=== PATIENT | male | born 1945 | race African-American/Black ===

== ENCOUNTER → 2016-03-21 | Outpatient (CLI) | payer OTHER ==
[~2016-03-21] MED LIST: CARV12.544 PO; HYDR-1421; SIMV20TA90; SPIR25TA88 PO; WARF5TAB; WARF5TAB71 PO
[2016-03-21 11:28] LABS: Basophils # (auto) 0 uL; Basophils % (auto) 0.6 % (0.0-2.0); Eosinophils # (auto) 0.2 uL; Eosinophils % (auto) 2.1 % (0.0-7.0); Hematocrit 38.8 % (41.0-53.0); Hemoglobin 12.6 g/dL (13.5-17.5); Lymphocytes # (auto) 1.6 uL; Lymphocytes % (auto) 19.9 % (10.0-50.0); Mean Corpuscular Hemoglobin 30.5 pg (28.0-32.0); Mean Corpuscular Hgb Conc. 32.5 g/dL (32.0-36.0); Mean Corpuscular Volume 94.1 fL (80.0-100.0); Mean Platelet Volume 8.1 fL (7.4-10.4); Monocytes # (auto) 0.5 uL; Monocytes % (auto) 6.3 % (0.0-12.0); Neutrophils # (auto) 5.9 uL; Neutrophils % (auto) 71.1 % (37.0-80.0); Platelet Count (auto) 266 10^3/uL (140-450); Red Cell Distribution Width 14.3 % (11.6-16.0); SUSPECT VIEW TRANSMISSION; White Blood Cell 8.3 10^3/uL (4.4-10.8)
[2016-03-21 11:36] LABS: Urine Bilirubin Negative (Negative); Urine Blood Negative /uL (Negative); Urine Color Yellow (Yellow); Urine Glucose Normal (Normal); Urine Ketone Negative (Negative); Urine Nitrite Negative (Negative); Urine Urobilinogen Normal (Negative); Urine pH 5.5 (5.0-8.0)
[2016-03-21 11:50] LABS: INR 1.95 (0.9-1.15); Prothrombin Time 20.1 sec (9.37-12.3)
[2016-03-21 11:54] LABS: Albumin 3.9 g/dL (3.4-5.0); BUN/Creatinine Ratio 25.8; Bilirubin, Total 0.6 mg/dL (0.2-1.0); Calcium 10.3 mg/dL (8.5-10.1); Potassium 4.8 mmol/L (3.5-5.1); Total Protein 9.1 g/dL (6.4-8.2)
== END | disposition home or self-care (01) ==
LOC: LAB 09:59
PROVIDERS: ATTEND Family Medicine
DX: Z01.818 Encounter for other preprocedural examination (principal)
CPT/HCPCS: 36415; 80053; 81003; 85025; 85610; 85730

== ENCOUNTER → 2016-07-08 | Outpatient (CLI) | payer OTHER | END | disposition home or self-care (01) | LOC: XY 08:17 | PROVIDERS: ATTEND Family Medicine | DX: C79.51 Secondary malignant neoplasm of bone (principal); C80.1 Malignant (primary) neoplasm, unspecified | CPT/HCPCS: 78306; A9503 ==

== ENCOUNTER → 2016-07-11 | Outpatient (CLI) | payer OTHER | END | disposition home or self-care (01) | LOC: LAB 08:47 | PROVIDERS: ATTEND Family Medicine | DX: M89.9 Disorder of bone, unspecified (principal) | CPT/HCPCS: 36415; 82306; 82310 ==

== ENCOUNTER 2017-02-22 16:10 | Emergency (ER) | payer OTHER ==
[~2017-02-22] VITALS: Ht 185.4 cm; Wt 154.2 kg
[2017-02-22 20:58] LABS: Basophils # (auto) 0.1 uL; Basophils % (auto) 0.9 % (0.0-2.0); Eosinophils # (auto) 0.2 uL; Eosinophils % (auto) 2.4 % (0.0-7.0); Hematocrit 34.2 % (41.0-53.0); Hemoglobin 11.1 g/dL (13.5-17.5); Lymphocytes # (auto) 1.9 uL; Lymphocytes % (auto) 23.2 % (10.0-50.0); Mean Corpuscular Hemoglobin 31.3 pg (28.0-32.0); Mean Corpuscular Hgb Conc. 32.5 g/dL (32.0-36.0); Mean Corpuscular Volume 96.4 fL (80.0-100.0); Monocytes # (auto) 0.8 uL; Monocytes % (auto) 9.7 % (0.0-12.0); Neutrophils # (auto) 5.2 uL; Neutrophils % (auto) 63.8 % (37.0-80.0); Platelet Count (auto) 269 10^3/uL (140-450); Red Blood Cells 3.55 10^6/uL (4.5-5.90); White Blood Cell 8.2 10^3/uL (4.4-10.8)
[2017-02-22 21:18] LABS: Albumin 3.6 g/dL (3.4-5.0); BUN/Creatinine Ratio 24.4; Bilirubin, Total 0.4 mg/dL (0.2-1.0); Calcium 9.4 mg/dL (8.5-10.1); Potassium 4.2 mmol/L (3.5-5.1)
[2017-02-23 09:02] VITALS: BP 148/72
== END 2017-02-23 09:28 | disposition home or self-care (01) ==
LOC: EDSEX → ER 16:10
DX: I83.028 Varicose veins of left lower extremity with ulcer other part of lower leg (principal); L97.829 Non-pressure chronic ulcer of other part of left lower leg with unspecified severity; E78.5 Hyperlipidemia, unspecified; I11.0 Hypertensive heart disease with heart failure; I50.9 Heart failure, unspecified; Z86.73 Personal history of transient ischemic attack (TIA), and cerebral infarction without residual deficits; Z95.1 Presence of aortocoronary bypass graft; Z95.0 Presence of cardiac pacemaker; Z79.899 Other long term (current) drug therapy
CPT/HCPCS: 36415; 80053; 85025

== ENCOUNTER → 2017-04-07 | Outpatient (CLI) | payer OTHER | END | disposition home or self-care (01) | LOC: XYW 09:39 | PROVIDERS: ATTEND Internal Medicine | DX: K21.9 Gastro-esophageal reflux disease without esophagitis (principal); I87.2 Venous insufficiency (chronic) (peripheral); I42.0 Dilated cardiomyopathy; N18.2 Chronic kidney disease, stage 2 (mild); E55.9 Vitamin D deficiency, unspecified; I83.009 Varicose veins of unspecified lower extremity with ulcer of unspecified site; L97.909 Non-pressure chronic ulcer of unspecified part of unspecified lower leg with unspecified severity; Z95.810 Presence of automatic (implantable) cardiac defibrillator; Z95.2 Presence of prosthetic heart valve | CPT/HCPCS: 93971 ==

== ENCOUNTER → 2017-07-01 | Outpatient (CLI) | payer OTHER | END | disposition home or self-care (01) | LOC: XYW 10:25 | PROVIDERS: ATTEND Internal Medicine | DX: I35.0 Nonrheumatic aortic (valve) stenosis (principal); I12.9 Hypertensive chronic kidney disease with stage 1 through stage 4 chronic kidney disease, or unspecified chronic kidney disease; N18.2 Chronic kidney disease, stage 2 (mild); E78.5 Hyperlipidemia, unspecified; K21.9 Gastro-esophageal reflux disease without esophagitis; Z95.2 Presence of prosthetic heart valve; Z79.899 Other long term (current) drug therapy | CPT/HCPCS: 93306 ==

== ENCOUNTER → 2017-11-03 | Outpatient (CLI) | payer OTHER ==
[2017-11-03 16:30] LABS: Basophils # (auto) 0 uL; Basophils % (auto) 0.4 % (0.0-2.0); Eosinophils # (auto) 0.3 uL; Eosinophils % (auto) 2.8 % (0.0-7.0); Hematocrit 34.9 % (36.0-46.0); Hemoglobin 11.6 g/dL (12.2-16.2); Lymphocytes # (auto) 1.7 uL; Lymphocytes % (auto) 14.3 % (10.0-50.0); Mean Corpuscular Hemoglobin 31.5 pg (28.0-32.0); Mean Corpuscular Hgb Conc. 33.2 g/dL (32.0-36.0); Mean Corpuscular Volume 94.9 fL (80.0-100.0); Monocytes # (auto) 0.8 uL; Monocytes % (auto) 6.6 % (0.0-12.0); Neutrophils # (auto) 8.9 uL; Neutrophils % (auto) 75.9 % (37.0-80.0); Platelet Count (auto) 233 10^3/uL (140-450); Red Blood Cells 3.68 10^6/uL (4.0-5.20); Red Cell Distribution Width 14.1 % (11.8-14.3); White Blood Cell 11.7 10^3/uL (4.4-10.8)
[2017-11-03 16:50] LABS: Urine Bacteria NONE SEEN /hpf (None Seen); Urine Blood Negative /uL (Negative); Urine Hyaline Cast MOD /lpf (0 - 2); Urine Specific Gravity 1.016 (1.001-1.035); Urine WBC 1 /hpf (0 - 5)
[2017-11-03 16:54] LABS: Albumin 3.8 g/dL (3.4-5.0); BUN/Creatinine Ratio 25.6; Bilirubin, Total 0.4 mg/dL (0.2-1.0); Calcium 9.7 mg/dL (8.5-10.1); Potassium 4.4 mmol/L (3.5-5.1); Total Protein 8.9 g/dL (6.4-8.2)
[2017-11-03 17:04] LABS: Alcohol, Urine < 3.0 mg/dL (0-5); Amphetamine Screen, Urine NEGATIVE (NEGATIVE); Barbiturate Scree,Urine NEGATIVE (NEGATIVE); Benzodiazephine Screen, Urine NEGATIVE (NEGATIVE); Cannabinoid Screen, Urine NEGATIVE (NEGATIVE); Cocaine Screen, Urine NEGATIVE (NEGATIVE); Opiate Scree,Urine POSITIVE (NEGATIVE); Phencyclidine Screen, Urine NEGATIVE (NEGATIVE)
== END | disposition home or self-care (01) ==
LOC: LAB 16:03
PROVIDERS: ATTEND Nurse Practitioner
DX: Z01.89 Encounter for other specified special examinations (principal); E78.5 Hyperlipidemia, unspecified; E55.9 Vitamin D deficiency, unspecified; I11.0 Hypertensive heart disease with heart failure; I50.9 Heart failure, unspecified
CPT/HCPCS: 36415; 80053; 80307; 81001; 82043; 82306; 83036; 84443; 85025

== ENCOUNTER 2018-01-28 14:24 | Emergency (ER) | payer OTHER ==
[~2018-01-28] VITALS: Ht 185.4 cm; Wt 142.9 kg
[2018-01-28] MEDS ORDERED: HYDROcodone-ACET 5/325MG TAB PO ONE (19:45)
[2018-01-28 19:50] VITALS: BP 149/69
== END 2018-01-28 20:41 | disposition home or self-care (01) ==
LOC: EDSEX 14:24 → EDBD 14:24 → ER 14:29 → EDSEX 14:29 → ER 20:41
DX: S56.911A Strain of unspecified muscles, fascia and tendons at forearm level, right arm, initial encounter (principal); I25.810 Atherosclerosis of coronary artery bypass graft(s) without angina pectoris; I11.0 Hypertensive heart disease with heart failure; I50.9 Heart failure, unspecified; E78.5 Hyperlipidemia, unspecified; X58.XXXA Exposure to other specified factors, initial encounter; Y93.89 Activity, other specified; Y92.89 Other specified places as the place of occurrence of the external cause; Y99.8 Other external cause status
CPT/HCPCS: 93005; 93971

== ENCOUNTER 2018-02-10 09:47 | Inpatient (IN) | payer OTHER ==
[~2018-02-10] VITALS: Ht 185.4 cm; Wt 137.6 kg
[2018-02-10 10:43] LABS: Basophils # (auto) 0.1 uL; Basophils % (auto) 0.8 % (0.0-2.0); Eosinophils # (auto) 0.1 uL; Hematocrit 31.1 % (41.0-53.0); Hemoglobin 9.9 g/dL (13.5-17.5); Lymphocytes # (auto) 0.9 uL; Lymphocytes % (auto) 7.1 % (10.0-50.0); Mean Corpuscular Hemoglobin 30.1 pg (28.0-32.0); Mean Corpuscular Hgb Conc. 31.8 g/dL (32.0-36.0); Mean Corpuscular Volume 94.6 fL (80.0-100.0); Monocytes # (auto) 0.9 uL; Monocytes % (auto) 7.2 % (0.0-12.0); Neutrophils # (auto) 10.6 uL; Neutrophils % (auto) 83.9 % (37.0-80.0); Platelet Count (auto) 368 10^3/uL (140-450); Red Blood Cells 3.29 10^6/uL (4.5-5.90); Red Cell Distribution Width 14.1 % (11.8-14.3); White Blood Cell 12.7 10^3/uL (4.4-10.8)
[2018-02-10 10:59] LABS: Albumin 3.5 g/dL (3.4-5.0); Calcium 10.3 mg/dL (8.5-10.1)
[2018-02-10 11:08] LABS: BUN/Creatinine Ratio 22.1; Bilirubin, Total 0.6 mg/dL (0.2-1.0); Total Protein 9.1 g/dL (6.4-8.2)
[2018-02-10 11:10] LABS: Potassium 7.2 mmol/L (3.5-5.1)
[2018-02-10 11:21] LABS: INR 3.58 (0.9-1.15); Partial Thromboplastin Time 54.6 sec (23.78-33.04); Prothrombin Time 35.6 sec (9.27-12.13)
[2018-02-10] MEDS ORDERED: SODIUM BICARBONATE 8.4% INJ 50ML SYRINGE IV ONE (13:00)
[2018-02-10] MEDS ORDERED: ALBUTEROL SULF 2.5 MG/0.5ML(0.5%) NEB SOLN NEB ONE (13:00)
[2018-02-10] MEDS ORDERED: DEXTROSE (50%) 50ML SYRG IV ONE ×2 (13:00→17:30)
[2018-02-10] MEDS ORDERED: InsuLIN REG 1unit/0.01ml Soln (100units/ml) IV ONE ×2 (13:00→17:30)
[2018-02-10] MEDS ORDERED: LACTULOSE 20Gm/30ML SOLN PO PRN (14:00)
[2018-02-10] MEDS ORDERED: MORPHINE SULFATE 4 MG/ML SYR/VIAL IV PRN ×2 (14:00)
[2018-02-10] MEDS ORDERED: LORazepam 0.5 MG TAB PO PRN (14:00)
[2018-02-10] MEDS ORDERED: NITROGLYCERIN 0.4 MG SL TAB SL PRN (14:00)
[2018-02-10] MEDS ORDERED: TEMAZEPAM 15 MG CAP PO PRN (14:00)
[2018-02-10] MEDS ORDERED: ACETAMINOPHEN 500 MG TAB PO PRN (14:00)
[2018-02-10] MEDS ORDERED: SODIUM POLYSTYRENE SULF 15GM/60ML SUSP PO ONE (14:00)
[2018-02-10 14:04] LABS: Urine Bacteria NONE SEEN /hpf (None Seen); Urine Blood 1+ /uL (Negative); Urine Hyaline Cast FEW /lpf (0 - 2); Urine Specific Gravity 1.013 (1.001-1.035); Urine WBC 7 /hpf (0 - 3)
[2018-02-10] MEDS: SODIUM CHLORIDE 0.9% 1,000 ML IV SCH (14:14)
[2018-02-10] MEDS ORDERED: SODIUM CHLORIDE 0.9% 2,000 ML IV ONE (15:45)
[2018-02-10] MEDS ORDERED: phytonadione 5 MG in SODIUM CHL 0.9% 50 ML IV ONE (16:15)
[2018-02-10 16:28] LABS: Albumin 3.2 g/dL (3.4-5.0); Calcium 9.8 mg/dL (8.5-10.1)
[2018-02-10 16:34] LABS: BUN/Creatinine Ratio 23.4; Bilirubin, Total 0.6 mg/dL (0.2-1.0); Total Protein 8.6 g/dL (6.4-8.2)
[2018-02-10] MEDS ORDERED: IOHEXOL 300 MG/ML 100ML BOTTLE IJ ONE (16:34)
[2018-02-10] MEDS ORDERED: LIDOCAINE 2% (LOCAL ANESTH.) PF 5ml SDV ONE (16:35)
[2018-02-10] MEDS ORDERED: MIDAZOLAM HCL 0 ML IV ONE (17:01)
[2018-02-10] MEDS ORDERED: fentaNYL CITRATE 100 MCG/2 ML VL ONE (17:01)
[2018-02-10] MEDS ORDERED: HEPARIN SODIUM (PORCINE) 5000 UNITS/ML 1ML VIAL ONE (17:25)
[2018-02-10] MEDS ORDERED: SODIUM BICARBONATE 8.4 % INJ 50ML VIAL IV ONE (17:30)
[2018-02-10 17:45] VITALS: BP 102/51
--- NOTE | 2018-02-10 17:45 | NUR ---
Admit to [facility] admitted to [facility] via gurney on cardiac specialist, and portable 02. Patient transferred to bed, connected to unit monitoring and oxygen, and weighed by bed scale. Right groin Danis catheter access is clean and dry without signs of bleeding. Patient oriented to Sisi sanz RN, unit, room, bed, and unit policies regarding patient care and visiting hours. All questions and concerns addressed, patient verbalized understanding.
--- NOTE | 2018-02-10 17:54 | NUR ---
CARD LACER JACQUARD AT BEDSIDE STARTING DIALYSIS FROM RIGHT GROIN ZEHRA CATH ACCESS.
--- NOTE | 2018-02-10 18:10 | NUR ---
wound photos taken
[2018-02-10] MEDS ORDERED: cefTRIAXone 1GM/50ML D5W 50 ML IV ONE (19:15)
--- NOTE | 2018-02-10 19:20 | NUR ---
OPENING SHIFT NOTE PATIENT CURRENTLY RECEIVING DIALYSIS, DIALYSIS NURSE AT BEDSIDE. PATIENT OPENS EYES WHEN CALLED BY NAME BUT CLOSES THEM IMMEDIATELY AFTER. PT IS ALERT AND ORIENTED X2 WITH GARBLED SPEECH AND ABLE TO FOLLOW SIMPLE COMMANDS, IS ABLE TO STATE NAME, , AND PLACE. SEE INTERVENTIONS FOR COMPLETE PHYSICAL ASSESSMENT. FALL PRECAUTIONS INITIATED. CALL LIGHT WITHIN EASY REACH. VS WNL WITH NO S/S OF DISTRESS/SOB: CONTINUE TO MONITOR.
--- NOTE | 2018-02-10 19:34 | NUR ---
BLOOD BANK CALLED, STATES [facility] IS READY. INFORMED HER TO START THAWING THE FIRST BAG NOW.
--- NOTE | 2018-02-10 19:35 | NUR ---
ENDORSED CARE TO ORDERING BOX OPERATOR RN, NO SOB OR DISTRESS NOTED. DIALYSIS CONTINUING.
[2018-02-10 20:00] VITALS: BP 102/57
--- NOTE | 2018-02-10 20:01 | NUR ---
DIALYSIS ENDED BLOOD PRESSURE 102/57 PER DIALYSIS NURSE NO OUTPUT
[2018-02-10 20:27] LABS: Albumin 3.2 g/dL (3.4-5.0); Calcium 8.7 mg/dL (8.5-10.1); Potassium 4.4 mmol/L (3.5-5.1)
[2018-02-10 20:31] LABS: BUN/Creatinine Ratio 25.9; Bilirubin, Total 0.8 mg/dL (0.2-1.0); Total Protein 8.6 g/dL (6.4-8.2)
[2018-02-10] MEDS: ATORVASTATIN 20 MG TAB PO SCH (21:29)
[2018-02-11] VITALS: BP 115/65
[2018-02-11] MEDS ORDERED: SPIR25TA8 PO (00:48)
[2018-02-11] MEDS ORDERED: LISI-275 PO (00:48)
[2018-02-11] MEDS ORDERED: DOXY100C2 PO (00:49)
[2018-02-11] MEDS: SODIUM CHLORIDE 0.9% 1,000 ML IV SCH ×3 (02:09→17:15)
--- NOTE | 2018-02-11 02:18 | NUR ---
PAIN: PATIENT NOTED TO BE MOANING PATIENT IS NOW ALERT AND ORIENTED X3, AWAKE AND ABLE TO VERBALIZE HIS LEGS WERE HURTING HIM RATED PAIN 7/10 WHEN ASKED IF PATIENT HAD ANY ALLERGIES HE STATED NO AND STATED HE HAS RECEIVED MORPHINE IN THE PAST WILL MEDICATE PER MD ORDERS PATIENT REQUESTING WATER ICE WATER GIVEN AND PATIENT SWALLOWED WITHOUT DIFFICULTY UPDATED PATIENT ON HIS POST OP PROCEDURE AND EXPLAINED DIALYSIS PATIENT VERBALIZED UNDERSTANDING INSTRUCTED TO CALL PRN WILL CONTINUE TO MONITOR
[2018-02-11 04:00] VITALS: BP 122/59
--- NOTE | 2018-02-11 05:12 | NUR ---
AM CARE/LINEN CHANGE PATIENT GIVEN COMPLETE BED BATH USING WARM SOAPY WATER. SKIN INTEGRITY REASSESSED AT THIS TIME. RIGHT LATERAL LOWER EXTREMITY NOTED TO HAVE A BLISTER WHICH HAS POPPED HOWEVER SKIN REMAINS INTACT. PATIENT ABLE TO ASSIST MINIMALLY WITH TURNING. NEW GOWN PLACED AND PARTIAL BED LINEN CHANGE DONE.PATIENT REPOSITIONED FOR COMFORT. FALL PRECAUTIONS CONTINUED. PATIENT IS FULLY AWAKE AND ALERT AND ORIENTED X4, SPEECH CONTINUES TO BE SLURRED/GARBLED. NO DISTRESS/SOB.CONTINUE CARE. Addendum: 02/11/18 at 0533 by Yvonne Ritchie RN LEFT LATERAL CHEST NOTED TO HAVE MULTIPLE ECCHYMOTIC AREAS PATIENT DENIES RECENT FALLS STATES IT IS FROM COUMADIN INTAKE
[2018-02-11 05:48] LABS: Basophils # (auto) 0 uL; Basophils % (auto) 0.4 % (0.0-2.0); Eosinophils # (auto) 0.2 uL; Eosinophils % (auto) 1.9 % (0.0-7.0); Hematocrit 27.6 % (41.0-53.0); Hemoglobin 9.1 g/dL (13.5-17.5); Lymphocytes # (auto) 0.8 uL; Lymphocytes % (auto) 7.4 % (10.0-50.0); Mean Corpuscular Hgb Conc. 33.1 g/dL (32.0-36.0); Mean Corpuscular Volume 93.5 fL (80.0-100.0); Monocytes # (auto) 1.1 uL; Monocytes % (auto) 10.3 % (0.0-12.0); Neutrophils # (auto) 8.7 uL; Nucleated Red Blood Cells % 0.1 %; Platelet Count (auto) 337 10^3/uL (140-450); Red Blood Cells 2.95 10^6/uL (4.5-5.90); Red Cell Distribution Width 13.7 % (11.8-14.3); White Blood Cell 10.8 10^3/uL (4.4-10.8)
[2018-02-11 06:02] LABS: Albumin 2.9 g/dL (3.4-5.0)
[2018-02-11 06:07] LABS: INR 1.4 (0.9-1.15); Prothrombin Time 14.7 sec (9.27-12.13)
[2018-02-11 06:09] LABS: BUN/Creatinine Ratio 27.3; Bilirubin, Total 0.9 mg/dL (0.2-1.0); Total Protein 7.7 g/dL (6.4-8.2)
--- NOTE | 2018-02-11 06:20 | NUR ---
SPOKE WITH PATIENT'S OVER THE PHONE AND UPDATED HER ON PATIENT STATUS AND POC ALL QUESTIONS AND CONCERNS ADDRESSED ENCOURAGED KATELYNN TO CALL FOR FURTHER QUESTIONS
--- NOTE | 2018-02-11 07:30 | NUR ---
CARE ENDORSED TO DAY SHIFT RN PAIGE PATIENT RESTING IN BED NO S/S OF DISTRESS/SOB FALL PRECAUTIONS CONTINUED
--- NOTE | 2018-02-11 07:30 | NUR ---
ASSUMED CARE OF PATIENT AFTER RECEIVING REPORT FROM REGISTERED MIDWIFE RN, PATIENT IS ALERT AND ORIENTED X4 AND ON 2 L NC WITHOUT SOB OR DISTRESS NOTED AT THIS TIME. IV IN LEFT AC INFUSING NS AT 100 MLS/HR WITHOUT IRRITATION. RICHARDSON PATENT AND DRAINING TO GRAVITY CLEAR YELLOW URINE. BED IN LOWEST POSITION WITH X2 RAILS RAISED. CALL LIGHT WITHIN PATIENT REACH.
[2018-02-11 07:51] VITALS: BP 101/32
[2018-02-11] MEDS ORDERED: SODIUM CHL 0.9% 1000 ML BAG XX ONE (08:15)
--- NOTE | 2018-02-11 09:50 | NUR ---
DR. OSBORNE CAME TO BEDSIDE STATES TO PLACE A CARDIO CONSULT DUE TO THE ARTIFICIAL VALVE. STATES DIALYSIS WILL BE PERFORMED AGAIN TODAY.
[2018-02-11] MEDS ORDERED: ASPirin 81 mg TAB PO SCH (10:00)
[2018-02-11] MEDS ORDERED: ENOXAPARIN SOD 30 MG/0.3 ML SYRINGE SC SCH (10:00)
[2018-02-11] MEDS: PANTOPRAZOLE 40 MG TAB PO SCH (10:00)
--- NOTE | 2018-02-11 10:48 | NUR ---
[facility] STATES SHE WILL BE HERE TO DIALYZE THE PATIENT AT 1130.
--- NOTE | 2018-02-11 11:44 | NUR ---
WOUND CARE NOTE: IN TO SEE PATIENT AT THIS TIME PER WOUND CARE CONSULT REQUEST. PATIENT NOTED UPON ADMIT, TO HAVE WOUNDS. ALL WOUNDS PHOTOGRAPHED FOR REFERENCE, BY BEDSIDE NURSE AT THAT TIME. PATIENT ADMITTED TO [facility] WITH DIAGNOSIS OF UREMIC ENCEPHALOPATHY. CURRENT BERE SCORE IS 13. PATIENT STATES THAT HE CAN AMBULATE WITH HELP OF WALKER OR CRUTCHES. HE RECEIVES WOUND CARE FOR HIS PVD. PATIENT IS NOTED TO HAVE GENERALIZED EDEMA THAT IS NON PITTING. HE IS CURRENTLY RECEIVING DIALYSIS. PATIENT HAS 4 SERUM FILLED BLISTERS, 3 OF WHICH ARE OPEN AND DRAINING LIGHT AMOUNTS OF SEROUS DRAINAGE. NEW WOUND PHOTOS TAKEN FOR REFERENCE AT THIS TIME. ALL OPEN BLISTERS ARE PARTIAL THICKNESS. CLEANSED WITH WOUND CLEANSER, PATTED DRY WITH STERILE GAUZE. APPLIED THERAHONEY GAUZE TO OPEN WOUND BED AREAS. COVERED ALL BLISTERS WITH OPTIFOAM GENTLE DRESSING. PATIENT TOLERATED DRESSING CHANGE WELL, WITH NO PAIN NOTED BY PATIENT. ELEVATED BOTH LEGS UP ONTO PILLOWS FOR EDEMA CONTROL. RECOMMEND: DIETARY CONSULT, DAILY/PRN DRESSING CHANGE TO BLE BLISTERS, ELEVATION OF BLE UP ONTO PILLOWS, FREQUENT TURN SCHEDULE Q 2 HOURS, PRN CONDITION PERMITS, WITH PRESSURE REDISTRIBUTION USING PILLOWS/WEDGES, BID/PRN APPLICATION WITH MOISTURE BARRIER CREAM AND OPTIFOAM GENTLE SACRAL DRESSING PREVENTATIVE, CONTINUED MONITORING BY WOUND CARE TEAM. Addendum: 02/11/18 at 1809 by Carolin Elaine RN Amended: Links added.
[2018-02-11 11:55] VITALS: BP 110/67
--- NOTE | 2018-02-11 12:13 | NUR ---
RESEARCH AND DEVELOPMENT SPECIALIST AT BEDSIDE STARTING TO DIALYZE
--- NOTE | 2018-02-11 14:07 | NUR ---
DIALYSIS COMPLETED. POSITIVE INTAKE OF 300 CC OF FLUIDS.
[2018-02-11 14:45] LABS: Basophils # (auto) 0.1 uL; Basophils % (auto) 0.6 % (0.0-2.0); Eosinophils # (auto) 0.1 uL; Eosinophils % (auto) 1.1 % (0.0-7.0); Hematocrit 29.1 % (41.0-53.0); Hemoglobin 9.5 g/dL (13.5-17.5); Lymphocytes # (auto) 0.7 uL; Lymphocytes % (auto) 7.4 % (10.0-50.0); Mean Corpuscular Hemoglobin 30.6 pg (28.0-32.0); Mean Corpuscular Hgb Conc. 32.7 g/dL (32.0-36.0); Mean Corpuscular Volume 93.5 fL (80.0-100.0); Monocytes # (auto) 1.1 uL; Monocytes % (auto) 11.4 % (0.0-12.0); Neutrophils # (auto) 7.9 uL; Neutrophils % (auto) 79.5 % (37.0-80.0); Nucleated Red Blood Cells % 0.1 %; Platelet Count (auto) 314 10^3/uL (140-450); Red Blood Cells 3.11 10^6/uL (4.5-5.90); Red Cell Distribution Width 13.8 % (11.8-14.3); White Blood Cell 9.9 10^3/uL (4.4-10.8)
[2018-02-11 15:04] LABS: INR 1.24 (0.9-1.15); Prothrombin Time 13.1 sec (9.27-12.13)
[2018-02-11 15:55] VITALS: BP 90/46
[2018-02-11] MEDS: PROMETHAZINE HCL 25 MG/ML 1ML IV PRN (16:37)
--- NOTE | 2018-02-11 16:37 | NUR ---
Midline Placement to Right Upper Arm, 18g/8 cm in length. Blood return obtained from single port, flushes easily. Tolerated well. Primary RN notified. Lot# [id number].
[2018-02-11] MEDS: cefTRIAXone 1GM/50ML D5W 50 ML IV SCH (16:41)
[2018-02-11] MEDS ORDERED: WARFARIN SODIUM 5 MG TAB PO ONE (17:00)
[2018-02-11] MEDS: HEPARIN DRIP/D5W 100UNITS/ML 250 ML IV SCH (17:03)
--- NOTE | 2018-02-11 18:19 | NUR ---
SPOKE TO DR. GEORGE INFORMED HIM PATIENT HAS BEEN VOMITING EVEN AFTER ADMINISTERING THE PRN PHENERGAN. MD STATES TO GIVE ONE DOES OF ZOFRAN 4 MG IV NOW THEN HAVE ORDERED FOR Q4HPRN.
[2018-02-11] MEDS ORDERED: ONDANSETRON HCL 4 MG/2 ML VIAL IM ONE (18:30)
[2018-02-11] MEDS ORDERED: ONDANSETRON HCL 4 MG/2 ML VIAL ONE (18:38)
--- NOTE | 2018-02-11 19:30 | NUR ---
SHIFT OPENING NOTE RECEIVED PATIENT WITH EYES CLOSED. OPENED EYES WITH VOICE. APPROPRIATELY RESPONDED TO QUESTIONS. ALERT AND ORIENTED X4. NO SOB, DISTRESS OR PAIN NOTED. ON 2L N/C. VS STABLE. EVER CATH NOTED ON RIGHT GROIN. DRESSING IS C/D/I. ON HEPARIN INFUSING AT 20 ML/H. ON NS AT 100 ML/H. PHYSICAL ASSESSMENT COMPLETED, SEE INTERVENTIONS. INSTRUCTED ON POC AND TO CALL FOR ASSIST NEEDED. BED IS IN THE LOWEST POSITION WITH SIDE RAILS UP X2, CALL LIGHT IS WITHIN REACH.
--- NOTE | 2018-02-11 19:52 | NUR ---
ENDORSED CARE TO LOAN OPERATIONS MANAGER RN, NO SOB OR DISTRESS NOTED. ENDORSED GIVING COUMADIN AFTER PATIENT'S VOMITING HAS STOPPED.
[2018-02-11 20:00] VITALS: BP 117/67
[2018-02-11] MEDS ORDERED: EPOETIN ALFA 10,000 UNIT/1 ML VIAL SC ONE (21:00)
[2018-02-11] MEDS: ATORVASTATIN 20 MG TAB PO SCH (21:30)
--- NOTE | 2018-02-11 21:50 | NUR ---
BM PATIENT NOTED TO HAVE A BM. CLEANSED WITH SOAP AND WATER. PARTIAL LINEN CHANGE DONE. GOWN CHANGED. REPOSITIONED FOR COMFORT. TOLERATED IT WELL. CALL LIGHT WITHIN REACH. WILL CONTINUE TO MONITOR.
[2018-02-11 23:03] LABS: INR 1.17 (0.9-1.15); Prothrombin Time 12.4 sec (9.27-12.13)
[2018-02-11 23:04] LABS: Partial Thromboplastin Time 74.1 sec (23.78-33.04)
--- NOTE | 2018-02-11 23:05 | NUR ---
HEPARIN DRIP:NO CHANGE PTT 74.1 RATE WILL REMAIN AT 20 ML/H.
--- NOTE | 2018-02-11 23:20 | NUR ---
SPOKE WITH KATELYNN ON THE PHONE UPDATED HER ON PATIENT STATUS AND POC.
[2018-02-12] VITALS: BP 125/58
[2018-02-12] MEDS: PROMETHAZINE HCL 25 MG/ML 1ML IV PRN (00:58)
--- NOTE | 2018-02-12 01:00 | NUR ---
NAUSEA/VOMITING PATIENT HAD AN EPISODE OF VOMITING. GREEN OUTPUT SEEN . BED PLACED IN HIGH FOWLERS POSITION. MEDICATED WITH PHENERGAN PER MD ORDER. WILL CONTINUE TO MONITOR.
[2018-02-12] MEDS: HEPARIN DRIP/D5W 100UNITS/ML 250 ML IV SCH ×3 (02:43→22:08)
[2018-02-12 04:00] VITALS: BP 131/66
[2018-02-12] MEDS: SODIUM CHLORIDE 0.9% 1,000 ML IV SCH ×3 (04:44→23:15)
--- NOTE | 2018-02-12 05:00 | NUR ---
PARTIAL BED BATH DONE SHARON CARE PERFORMED. GOWN CHANGED, PARTIAL LINEN CHANGE. PATIENT TOLERATED IT WELL.
[2018-02-12 05:46] LABS: Basophils # (auto) 0 uL; Basophils % (auto) 0.2 % (0.0-2.0); Eosinophils # (auto) 0 uL; Hematocrit 30.8 % (41.0-53.0); Hemoglobin 9.8 g/dL (13.5-17.5); Lymphocytes # (auto) 0.8 uL; Lymphocytes % (auto) 5.9 % (10.0-50.0); Mean Corpuscular Hemoglobin 30.2 pg (28.0-32.0); Mean Corpuscular Hgb Conc. 31.7 g/dL (32.0-36.0); Mean Corpuscular Volume 95.1 fL (80.0-100.0); Monocytes # (auto) 1.5 uL; Monocytes % (auto) 10.2 % (0.0-12.0); Neutrophils % (auto) 83.7 % (37.0-80.0); Platelet Count (auto) 336 10^3/uL (140-450); Red Blood Cells 3.24 10^6/uL (4.5-5.90); Red Cell Distribution Width 13.6 % (11.8-14.3); White Blood Cell 14.3 10^3/uL (4.4-10.8)
[2018-02-12 06:00] LABS: INR 1.19 (0.9-1.15); Prothrombin Time 12.6 sec (9.27-12.13)
[2018-02-12 06:39] LABS: Anion Gap 6 (5-15); Blood Urea Nitrogen 54 mg/dL (7-18); Carbon Dioxide 29 mmol/L (21-32); Chloride 108 mmol/L (98-107); Glucose 122 mg/dL (74-106); Potassium 3.8 mmol/L (3.5-5.1); Sodium 143 mmol/L (136-145)
[2018-02-12 06:40] LABS: BUN/Creatinine Ratio 28.4; Calcium 9.3 mg/dL (8.5-10.1); GFR African American 45 mL/min; GFR Non-African American 37 mL/min
[2018-02-12 06:59] LABS: INR 1.19 (0.9-1.15); Prothrombin Time 12.6 sec (9.27-12.13)
--- NOTE | 2018-02-12 07:00 | NUR ---
END OF SHIFT PATIENT IS QUIETLY LAYING IN BED SLEEPING. NO SOB, DISTRESS OR PAIN NOTED. WILL GIVE REPORT AND ENDORSE CARE TO THE DAY SHIFT NURSE.
[2018-02-12] MEDS: ONDANSETRON HCL 4 MG/2 ML VIAL IV PRN ×2 (07:12→17:12)
--- NOTE | 2018-02-12 07:30 | NUR ---
RECEIVED PATIENT SITTING UP IN THE BED, A/O TIMES 2, O2 AT 2L BY N/C, RICHARDSON TO GRAVITY, HEPARIN DRIP AT TURNED OFF FOR I HOUR TO DUE TO ELEVATED PTT, NS AT 100ML/HR INFUSING INTACT THE LAC BY THE IV PUMP, DRESSING TO ERLINDA LEGS ALL INTACT, PATIENT IS WEAK WITH EXTREMITIES
--- NOTE | 2018-02-12 07:35 | NUR ---
HEPARIN DRIP CHANGE CRITICAL APTT OF 113 PER PROTOCOL, HEPARIN DRIP STOPPED FOR 1 HOUR, THEN RATE TO BE DECREASED TO 17 ML/H.
[2018-02-12 08:00] VITALS: BP 136/62
--- NOTE | 2018-02-12 08:30 | NUR ---
PATIENT REFUSED TO EAT ANY BREAKFAST BECAUSE HE WAS VOMITING EARLIER, BUT STATES HE DOESN'T HAVE ANY NAUSEA AT THIS TIME
[2018-02-12] MEDS: cefTRIAXone 1GM/50ML D5W 50 ML IV SCH (09:20)
--- NOTE | 2018-02-12 09:20 | NUR ---
EXPLAIN MEDICATIONS TO THE PATIENT REGARDING THE DOSAGE, USAGE, AND THE SIDE EFFECTS, VERBALIZED THAT HE UNDERSTOOD AND MEDS GIVEN ORDERED
[2018-02-12] MEDS: PANTOPRAZOLE 40 MG TAB PO SCH (09:21)
--- NOTE | 2018-02-12 10:30 | NUR ---
SITTING UP IN BED WITH EYES CLOSED
--- NOTE | 2018-02-12 11:40 | NUR ---
DIALYSIS NURSE HERE TO STARTED DIALYSIS
[2018-02-12] MEDS: HYDROcodone-ACET 5/325MG TAB PO PRN (11:54)
--- NOTE | 2018-02-12 11:56 | NUR ---
MEDICATED FOR PAIN TO THE HIPS 09/01 WITH NORCO 5/325MG
[2018-02-12 11:59] VITALS: BP 123/73
--- NOTE | 2018-02-12 12:22 | NUR ---
Nutrition Consult/assessment Notes please see attached link for complete assessment Est. Needs ABW 109k-2507kcal (20-23 kcal/kgBW), 87-109 gms pro (0.8-1.0 gms/kgBW r/t elev RFT). Will continue to monitor pertinent labs and reassess nutrient need pr Addendum: 02/12/18 at [address] Amended: Links added.
--- NOTE | 2018-02-12 12:39 | NUR ---
DIALYSIS BEING GIVEN PATIENT SITTING UP IN THE BED WITH EYES CLOSED , FAMILY AT THE BEDSIDE
--- NOTE | 2018-02-12 13:30 | NUR ---
HEPARIN DECREASED TO 1500 UNITS OR 15ML /HR,, PTT 86.5
[2018-02-12 13:50] LABS: INR 1.14 (0.9-1.15); Prothrombin Time 12.1 sec (9.27-12.13)
[2018-02-12 13:59] LABS: Partial Thromboplastin Time 86.5 sec (23.78-33.04)
--- NOTE | 2018-02-12 14:40 | NUR ---
DIALYSIS FINISHED, PATIENT TOLERATED TODAY, B/P 122/75
[2018-02-12] MEDS: EPOETIN ALFA 10,000 UNIT/1 ML VIAL SC ONE ×2 (15:23→15:25)
--- NOTE | 2018-02-12 15:30 | NUR ---
SITTING UP IN THE BED FRIEND IN VISITING
[2018-02-12 16:00] VITALS: BP 123/71
--- NOTE | 2018-02-12 16:30 | NUR ---
NO CHANGE B/P STILL IN THE 120 RANGE SYSTOLIC,
[2018-02-12] MEDS ORDERED: WARFARIN SODIUM 2.5 MG TAB PO ONE (17:00)
--- NOTE | 2018-02-12 17:15 | NUR ---
MEDICATED FOR NAUSEA WITH ZOFRAN, VOMITED ABOUT 150ML OF GREENISH FLUID, BUT THE PATIENT HAS REFUSED TO EAT ALL DAY, EXPRESS TO HIM THAT HE NEEDS FOOD ON HIS STOMACH BECAUSE OF THE MEDICATIONS THAT WE ARE GIVING HIM
--- NOTE | 2018-02-12 17:31 | NUR ---
STATES NAUSEA HAS RESOLVED, STATES HE WILL EAT DINNER, DAUGHTER IN THE ROOM WITH THE PATIENT, ENCOURAGING HIM TO EAT
--- NOTE | 2018-02-12 18:36 | NUR ---
SITTING UP IN BED WITH HIS EYES CLOSED, O2 AT 2L BY N/C, HEPARIN INFUSING INTO THE GET MIDLINE AT 15ML/HR AND NS INFUSING INTO THE LAC AT 50ML/HR BOTH BY THE IV PUMP, RICHARDSON TO GRAVITY, PILLOWS ELEVATED ON PILLOWS, NO COMPLAINTS OF NAUSEA, WILL CONTINUE TO MONITOR AND GIVE REPORT TO THE NEXT SHIFT
[2018-02-12 19:58] VITALS: BP 135/74
[2018-02-12 20:37] LABS: INR 1.16 (0.9-1.15); Partial Thromboplastin Time 64.8 sec (23.78-33.04); Prothrombin Time 12.3 sec (9.27-12.13)
--- NOTE | 2018-02-12 21:03 | NUR ---
PTT 64.80, no changes to Heparin drip. Pt stable.
[2018-02-12] MEDS: ATORVASTATIN 20 MG TAB PO SCH (22:36)
[2018-02-13 02:37] LABS: INR 1.16 (0.9-1.15); Prothrombin Time 12.3 sec (9.27-12.13)
[2018-02-13 02:51] LABS: Partial Thromboplastin Time 73.2 sec (23.78-33.04)
--- NOTE | 2018-02-13 02:56 | NUR ---
PTT 73.2, no changes to Heparin drip at this time. Pt stable. Will continue to monitor.
[2018-02-13 03:19] LABS: Albumin 2.4 g/dL (3.4-5.0); BUN/Creatinine Ratio 16.6; Calcium 9.1 mg/dL (8.5-10.1); Potassium 3.6 mmol/L (3.5-5.1)
[2018-02-13 03:22] LABS: Bilirubin, Total 0.7 mg/dL (0.2-1.0); Total Protein 7.8 g/dL (6.4-8.2)
--- NOTE | 2018-02-13 07:00 | NUR ---
Pt offered a bath and linen change this morning, pt asked if he could wait till later in the morning. Pt has remained stable throughout the shift. No new developments. Heparin drip has not had to be changed as far as rate/dosage. Will give report to AM shift and endorse care.
--- NOTE | 2018-02-13 07:30 | NUR ---
RECEIVED PATIENT SITTING UP IN THE BED, O2 AT 2L BY THE N/C, A/O TIMES 4, HEPARIN DRIP AT 15ML/HR INFUSING INTO THE GET MIDLINE AND NS INFUSING INTO THE LAC BOTH BY THE IV PUMP, DRESSING TO ERLINDA LEGS, INTACT, RICHARDSON TO GRAVITY, DENIES PAIN AND SOB
[2018-02-13 07:31] LABS: Basophils # (auto) 0 uL; Basophils % (auto) 0.1 % (0.0-2.0); Eosinophils # (auto) 0 uL; Hematocrit 28.7 % (41.0-53.0); Hemoglobin 9.2 g/dL (13.5-17.5); Lymphocytes # (auto) 0.8 uL; Mean Corpuscular Hemoglobin 30.5 pg (28.0-32.0); Mean Corpuscular Hgb Conc. 32.2 g/dL (32.0-36.0); Monocytes % (auto) 8.1 % (0.0-12.0); Neutrophils # (auto) 22.5 uL; Neutrophils % (auto) 88.8 % (37.0-80.0); Nucleated Red Blood Cells % 0.1 %; Platelet Count (auto) 308 10^3/uL (140-450); Red Blood Cells 3.03 10^6/uL (4.5-5.90); Red Cell Distribution Width 13.9 % (11.8-14.3); White Blood Cell 25.3 10^3/uL (4.4-10.8)
--- NOTE | 2018-02-13 08:20 | NUR ---
ate only a few bites of his oatmeal and then refused to eat anything else, states he is just not hungry
[2018-02-13] MEDS: SODIUM CHLORIDE 0.9% 1,000 ML IV SCH ×2 (09:15→22:10)
[2018-02-13] MEDS: PANTOPRAZOLE 40 MG TAB PO SCH (09:40)
[2018-02-13] MEDS: cefTRIAXone 1GM/50ML D5W 50 ML IV SCH (09:40)
--- NOTE | 2018-02-13 09:44 | NUR ---
explain medications to the patient regarding the dosage, usage, side effects, stated he understood and med given as ordered
[2018-02-13 09:51] VITALS: BP 125/65
--- NOTE | 2018-02-13 10:35 | NUR ---
talk to the pharmacist about the heparin drip for the patient no change in the rate and will ordered and ptt tomorrow am
--- NOTE | 2018-02-13 11:40 | NUR ---
patient sitting up in the bed with eyes closed, but opens when you walk into the room
[2018-02-13 11:52] VITALS: BP 120/64
--- NOTE | 2018-02-13 12:40 | NUR ---
daughter here helping the patient at his lunch
[2018-02-13] MEDS ORDERED: VANCOMYCIN PER PHARMACY 0 MG IV SCH (12:45)
--- NOTE | 2018-02-13 12:50 | NUR ---
dr walton and dr conway in to see the patient and ordered new antibiotics
--- NOTE | 2018-02-13 13:09 | NUR ---
PATIENT VOMITED AFTER HE TOOK A FEW BITES OF FOOD, DAUGHTER HAD ASK THE DOCTOR ABOUT IT AND HE EXPRESS TO HER THAT HE NEEDS TO EAT SOFT FOOD AND NOT HARD AND HE NEEDS TO TRY AND EAT BECAUSE HE HASN'T EATEN AND THAT IS PROBABLE WHY HE KEEPS VOMITING
--- NOTE | 2018-02-13 14:00 | NUR ---
PATIENT SITTING UP IN THE BED DAUGHTER AT THE BEDSIDE, NO VOMITING AT THIS TIME
[2018-02-13] MEDS: VANCOMYCIN 1,500 MG in D5W 5% 250 ML IV SCH (14:10)
--- NOTE | 2018-02-13 15:31 | NUR ---
SITTING UP IN BED WITH HIS EYES CLOSED, BUT OPENS WHEN YOU CALL HIS NAME, DENIES PAIN AND NAUSEA
[2018-02-13 15:54] VITALS: BP 113/62
[2018-02-13] MEDS: HEPARIN DRIP/D5W 100UNITS/ML 250 ML IV SCH (16:30)
--- NOTE | 2018-02-13 16:30 | NUR ---
WATCHING TV NO CHANGE
[2018-02-13] MEDS ORDERED: WARFARIN SODIUM 2.5 MG TAB PO ONE (17:00)
--- NOTE | 2018-02-13 17:30 | NUR ---
PLACED ON BED KATZ AND HAD A SMALL BM
[2018-02-13] MEDS: PIPERACILLIN-TAZOB 3.375GM 100 ML IV SCH ×2 (17:39→23:35)
--- NOTE | 2018-02-13 18:10 | NUR ---
SITING UP IN THE BED WATCHING TV, HEPARIN AT 15ML/HR INFUSING INTO THE GET MIDLINE AN ANTIBIOTICS INFUSING INTO THE LAC BOTH BY THE IV PUMP, O2 AT 2L BY N/C, RICHARDSON TO GRAVITY, DRESSING TO ERLINDA LEGS INTACT, AND TO THE ANAL FOLD INTACT, LEGS ELEVATED ON PILLOWS, A/O TIMES 4, WILL CONTINUE TO MONITOR AND GIVE REPORT TO THE NEXT SHIFT
--- NOTE | 2018-02-13 18:44 | NUR ---
DR FLOREZ STATES HE WILL SEE THE PATIENT TOMORROW REGARDING THE DINESH, AND SEE IF THE ANTIBIOTICS HELP HIM DURING THE NIGHT
[2018-02-13 19:55] VITALS: BP 132/63
[2018-02-13] MEDS: ATORVASTATIN 20 MG TAB PO SCH (22:07)
[2018-02-14] VITALS: BP 118/58
[2018-02-14 04:00] VITALS: BP 119/47
[2018-02-14 05:05] LABS: Basophils # (auto) 0 uL; Basophils % (auto) 0.1 % (0.0-2.0); Eosinophils # (auto) 0 uL; Eosinophils % (auto) 0.1 % (0.0-7.0); Hemoglobin 8.9 g/dL (13.5-17.5); Lymphocytes # (auto) 1.1 uL; Lymphocytes % (auto) 4.5 % (10.0-50.0); Mean Corpuscular Hemoglobin 30.3 pg (28.0-32.0); Mean Corpuscular Hgb Conc. 31.8 g/dL (32.0-36.0); Mean Corpuscular Volume 95.3 fL (80.0-100.0); Monocytes # (auto) 1.9 uL; Monocytes % (auto) 7.8 % (0.0-12.0); Neutrophils # (auto) 21.3 uL; Neutrophils % (auto) 87.5 % (37.0-80.0); Platelet Count (auto) 287 10^3/uL (140-450); Red Blood Cells 2.94 10^6/uL (4.5-5.90); Red Cell Distribution Width 13.8 % (11.8-14.3); White Blood Cell 24.3 10^3/uL (4.4-10.8)
[2018-02-14] MEDS: SODIUM CHLORIDE 0.9% 1,000 ML IV SCH ×2 (05:15→16:50)
[2018-02-14 05:35] LABS: Calcium 9.4 mg/dL (8.5-10.1); Potassium 3.5 mmol/L (3.5-5.1)
[2018-02-14 05:37] LABS: BUN/Creatinine Ratio 18.1
[2018-02-14 05:40] LABS: Bilirubin, Total 0.7 mg/dL (0.2-1.0); Total Protein 7.2 g/dL (6.4-8.2)
[2018-02-14] MEDS: PIPERACILLIN-TAZOB 3.375GM 100 ML IV SCH ×4 (06:42→23:57)
--- NOTE | 2018-02-14 07:01 | NUR ---
Pt has remained stable throughout this shift. No new developments. No S/S of distress. Heparin still infusing, PTT drawn this am and pt remains in therapeutic level. Denies pain. Continues to refuse food, broth was offered and refused. Report given, care endorsed.
[2018-02-14 08:00] VITALS: BP 107/64
--- NOTE | 2018-02-14 08:20 | NUR ---
AT BEDSIDE UPDATED ON PATIENTS STATUS. ORDERS TO D/C HEPARIN GTT. SEE NEW ORDERS. PER DR. SIMON CONTINUE IV FLUIDS AND VERIFY WITH BENCH MACHINE OPERATOR WHEN ROUNDS MADE.
--- NOTE | 2018-02-14 08:30 | NUR ---
NUTRITION PATIENT DOES NOT HAVE AN APPETITE, STATED HE FEELS NAUSEOUS AND FOOD DOES NOT SEEM APPEALING. DAUGHTER AT BEDSIDE AWARE. PT ATTEMPTING JUICE AND JELLO. MD AWARE OF POOR APPETITE.
--- NOTE | 2018-02-14 09:00 | NUR ---
BED RECEIVED TO 291A WITH VAN PER DISPATCHER SHIP PILOT. MORNING ASSESSMENT TO BE COMPLETED AND NEW ORDERS TO BE FOLLOWED.
--- NOTE | 2018-02-14 09:38 | NUR ---
CXR TAKEN AT BEDSIDE.
--- NOTE | 2018-02-14 09:39 | NUR ---
DR. ARLEN GALLEGOS RE; ORDER FOR DINESH PER DR. SIMON. MSG LEFT WITH EXCHANGE, AWAITING CALLBACK. Addendum: 02/14/18 at 0940 by Mary Lundberg RN PAGE CANCELLED. PER PREVIOUS RN NOTES " DR FLOREZ STATES HE WILL SEE THE PATIENT TOMORROW REGARDING THE DINESH, AND SEE IF THE ANTIBIOTICS HELP HIM DURING THE NIGHT". Addendum: 02/14/18 at 0942 by Mary Lundberg RN DR. SIMON AWARE.
--- NOTE | 2018-02-14 10:13 | NUR ---
REPORT GIVEN TO MAILE ESCALERA, UPDATED ON PLAN OF CARE, PENDING CARDIOLOGY TO SEE PATIENT FOR POSSIBLE DINESH AND MATH TUTOR TO BE NOTIFIED OF FLUIDS RATE OF 100ML/HR PER DR. SIMON.
[2018-02-14] MEDS: PANTOPRAZOLE 40 MG TAB PO SCH (10:14)
[2018-02-14] MEDS: HYDROcodone-ACET 5/325MG TAB PO PRN (10:15)
--- NOTE | 2018-02-14 10:15 | NUR ---
MSG LEFT FOR DIETARY, PER . PATIENT TAKES ENSURE AT HOME AND DUE TO POOR APPETITE AND PO INTAKE. MSG LEFT FOR DIETARY TO EVALUATE.
--- NOTE | 2018-02-14 10:19 | NUR ---
URINE CULTURE PROCESSING PER ANTHROPOLOGICAL LINGUIST.
--- NOTE | 2018-02-14 10:44 | NUR ---
PATIENT TAKEN TO ROOM 291A WITHOUT INCIDENCE. NURSE AT BEDSIDE.
--- NOTE | 2018-02-14 10:50 | NUR ---
PATRIC pt transferred to floor Assumed care, pt AAOX 3, breathing even, unlabored, S1, S2, Abd large nontender, LBM was 02/13/18. Midline to right upper arm single lumen intact/patent. F/C in place draining to gravity clear/yellow urine. Multiple wounds noted to bilateral lower extremities, sacrum pressure ulcers noted, all wounds covered with optiFrom. Patient oriented to Carlos Kelly RN primary RN, unit, room, bed, and unit policies regarding patient care and visiting hours. Patient now on continuous telemetry monitoring, tele box # 26 and telemetry reading on arrival to unit is paced 94. Patient placed on bedside oxygen 2L via N/C, weighed by bedscale and encouraged to call if they need something. All questions and concerns addressed, patient verbalized understanding. Bed locked in the lowest position, call light within easy reach, will continue care.
[2018-02-14] MEDS: MULTIPLE VITAMIN TAB PO SCH (12:24)
[2018-02-14] MEDS: ASCORBIC ACID 500 MG TAB PO SCH ×2 (12:24→21:46)
[2018-02-14 12:45] LABS: INR 1.4 (0.9-1.15); Prothrombin Time 14.7 sec (9.27-12.13)
[2018-02-14 13:00] VITALS: BP 114/59
--- NOTE | 2018-02-14 14:15 | NUR ---
DRESSING CHANGE DONE, PT TOLERATED WELL, WILL CONTINUE CARE.
[2018-02-14] MEDS: VANCOMYCIN 1,500 MG in D5W 5% 250 ML IV SCH ×2 (14:54→15:05)
--- NOTE | 2018-02-14 15:35 | NUR ---
PT DECLINED P.T. TODAY.
[2018-02-14 17:00] VITALS: BP 112/62
[2018-02-14] MEDS ORDERED: WARFARIN SODIUM 5 MG TAB PO ONE (17:00)
[2018-02-14] MEDS: ONDANSETRON HCL 4 MG/2 ML VIAL IV PRN (18:23)
--- NOTE | 2018-02-14 19:11 | NUR ---
CARE ENDORSED TO PARADISE ESCALERA.
--- NOTE | 2018-02-14 19:15 | NUR ---
Opening Shift Note Received report from Carlos RN. Assumed care of patient, awake and alert. No S/S of distress/SOB or pain. Instructed on POC and to call for assist PRN, will continue to monitor for changes Q1hr and PRN.
[2018-02-14] MEDS: ATORVASTATIN 20 MG TAB PO SCH (21:46)
[2018-02-14 22:50] VITALS: BP 114/62
[2018-02-15] MEDS: SODIUM CHLORIDE 0.9% 1,000 ML IV SCH ×3 (01:50→21:00)
[2018-02-15 04:41] VITALS: BP 117/62
[2018-02-15 05:28] LABS: Basophils # (auto) 0 uL; Basophils % (auto) 0.1 % (0.0-2.0); Eosinophils # (auto) 0.1 uL; Eosinophils % (auto) 0.5 % (0.0-7.0); Hematocrit 25.6 % (41.0-53.0); Hemoglobin 8.2 g/dL (13.5-17.5); Lymphocytes # (auto) 0.9 uL; Lymphocytes % (auto) 4.8 % (10.0-50.0); Mean Corpuscular Hemoglobin 30.1 pg (28.0-32.0); Monocytes # (auto) 1.7 uL; Monocytes % (auto) 8.8 % (0.0-12.0); Neutrophils # (auto) 16.8 uL; Neutrophils % (auto) 85.8 % (37.0-80.0); Platelet Count (auto) 284 10^3/uL (140-450); Red Blood Cells 2.73 10^6/uL (4.5-5.90); Red Cell Distribution Width 13.4 % (11.8-14.3); White Blood Cell 19.5 10^3/uL (4.4-10.8)
[2018-02-15 05:34] LABS: INR 1.68 (0.9-1.15); Prothrombin Time 17.5 sec (9.27-12.13)
[2018-02-15 05:54] LABS: BUN/Creatinine Ratio 20.2; Calcium 9.3 mg/dL (8.5-10.1); Potassium 3.4 mmol/L (3.5-5.1)
[2018-02-15 05:56] LABS: Bilirubin, Total 0.7 mg/dL (0.2-1.0); Total Protein 7.3 g/dL (6.4-8.2)
[2018-02-15] MEDS: PIPERACILLIN-TAZOB 3.375GM 100 ML IV SCH ×3 (06:11→17:19)
--- NOTE | 2018-02-15 07:05 | NUR ---
Patient stable at this time, no complaints made. Endorsed care to Carlos ESCALERA.
[2018-02-15 08:37] VITALS: BP 114/64
[2018-02-15] MEDS: ASCORBIC ACID 500 MG TAB PO SCH ×2 (10:02→21:00)
[2018-02-15] MEDS: PANTOPRAZOLE 40 MG TAB PO SCH (10:02)
[2018-02-15] MEDS: MULTIPLE VITAMIN TAB PO SCH (10:02)
--- NOTE | 2018-02-15 11:20 | NUR ---
DR. SIMON AT BEDSIDE.
--- NOTE | 2018-02-15 11:30 | NUR ---
ROUGHER HELPER DR. LFOREZ CONTACTED PER DR. SIMON'S REQUEST REGARDING DINESH. STATED "DINESH ON THURSDAY".
--- NOTE | 2018-02-15 12:05 | NUR ---
DR. COCHRAN AT BEDSIDE.
[2018-02-15 13:00] VITALS: BP 128/57
[2018-02-15] MEDS: VANCOMYCIN 1,500 MG in D5W 5% 250 ML IV SCH (14:30)
[2018-02-15 17:00] VITALS: BP 125/61
[2018-02-15] MEDS ORDERED: WARFARIN SODIUM 5 MG TAB PO ONE (17:00)
--- NOTE | 2018-02-15 19:23 | NUR ---
CARE ENDORSED TO KENDELL ESCALERA.
[2018-02-15] MEDS: ATORVASTATIN 20 MG TAB PO SCH (21:00)
--- NOTE | 2018-02-15 21:00 | NUR ---
Opening Shift Note: A&Ox3, forgetful. Currently on 2LO2 via NC; patient does not wear at home; pain level Opening Shift Note: A&Ox3, forgetful. Currently on 2LO2 via NC; states he does not wear at home; pain level 3/10 in bilateral legs; and currently bedrest; PT rec. SNF placement at discharge. Bed locked in the lowest position, side rails up x2, call light within reach, and bed alarm on for patient safety. Pozo inserted on 02/10/18 for strict i/o. Midline in RUE single lumen. Dialysis catheter inserted on 02/10/18 for urgent dialysis. Patient was a PATRIC transfer to [facility] on 02/14/18. Skin: bilateral lower extremity blisters; sacral skin tear and wound on left buttock; dressings changed per order. POC discussed and questions answered. Will continue to round and reposition prn.
[2018-02-15 21:31] VITALS: BP 105/55
[2018-02-16] MEDS: PIPERACILLIN-TAZOB 3.375GM 100 ML IV SCH ×5 (01:11→23:39)
[2018-02-16 04:32] VITALS: BP 116/60
--- NOTE | 2018-02-16 06:26 | NUR ---
Midline infiltration: Upon switching IV tubing, right arm swelling was noted with tenderness to the touch. Midline dressing was partially pulled off and new skin tear present on RUE. Page sent to medical receptionist hospitalist. New orders to get an US of the right arm to R/O DVT; PICC line consult; and not to remove the midline until after US.
--- NOTE | 2018-02-16 06:45 | NUR ---
US tech at bedside.
[2018-02-16 06:47] LABS: Basophils # (auto) 0 uL; Basophils % (auto) 0.2 % (0.0-2.0); Eosinophils # (auto) 0.2 uL; Eosinophils % (auto) 1.6 % (0.0-7.0); Hematocrit 25.1 % (41.0-53.0); Lymphocytes % (auto) 6.2 % (10.0-50.0); Mean Corpuscular Hemoglobin 30.3 pg (28.0-32.0); Mean Corpuscular Volume 94.7 fL (80.0-100.0); Monocytes # (auto) 1.8 uL; Monocytes % (auto) 11.6 % (0.0-12.0); Neutrophils # (auto) 12.5 uL; Neutrophils % (auto) 80.4 % (37.0-80.0); Nucleated Red Blood Cells % 0.1 %; Platelet Count (auto) 269 10^3/uL (140-450); Red Blood Cells 2.65 10^6/uL (4.5-5.90); Red Cell Distribution Width 13.4 % (11.8-14.3); White Blood Cell 15.5 10^3/uL (4.4-10.8)
[2018-02-16 06:48] LABS: INR 2.47 (0.9-1.15); Prothrombin Time 25.1 sec (9.27-12.13)
[2018-02-16 06:54] LABS: Albumin 1.9 g/dL (3.4-5.0); Calcium 9.6 mg/dL (8.5-10.1); Potassium 3.2 mmol/L (3.5-5.1)
[2018-02-16 06:59] LABS: BUN/Creatinine Ratio 23.7; Bilirubin, Total 0.6 mg/dL (0.2-1.0); Total Protein 7.3 g/dL (6.4-8.2)
--- NOTE | 2018-02-16 07:00 | NUR ---
IVG 20 g in left AC removed. painful with flush.
[2018-02-16] MEDS: SODIUM CHLORIDE 0.9% 1,000 ML IV SCH ×2 (07:15→16:51)
--- NOTE | 2018-02-16 07:20 | NUR ---
Opening Shift Note Assumed care of patient, awake and alert. No S/S of distress/SOB or pain. Instructed on POC-await PICC consult/insertion, turning at least every 2 hours, continue IV antibiotics and wound consult. Patient informed to call for assist PRN, will continue to monitor for changes Q1hr and PRN.
--- NOTE | 2018-02-16 08:04 | NUR ---
Picture taken of RUE skin tear. WC nurse notified of skin tear.
--- NOTE | 2018-02-16 08:08 | NUR ---
US report of RUE stated no evidence of DVT; midline infiltration and moderate edema. PICC line consult previously placed.
--- NOTE | 2018-02-16 08:10 | NUR ---
page sent to PICC line semiconductor wafers tester.
[2018-02-16 09:00] VITALS: BP 120/52
--- NOTE | 2018-02-16 09:23 | NUR ---
Page PICC line RN.
--- NOTE | 2018-02-16 10:10 | NUR ---
Called Montrell Todd informed patient needs a PICC. Montrell Todd stated she will contact the PICC RN.
--- NOTE | 2018-02-16 10:15 | NUR ---
Dr. Ponce informed of potassium level today 3.2. Per Dr. Ponce, no potassium replacement as patient came with hyperkalemia. Will continue to monitor patient.
[2018-02-16] MEDS: ASCORBIC ACID 500 MG TAB PO SCH ×2 (10:52→21:54)
[2018-02-16] MEDS: PANTOPRAZOLE 40 MG TAB PO SCH (10:53)
[2018-02-16] MEDS: MULTIPLE VITAMIN TAB PO SCH (10:53)
--- NOTE | 2018-02-16 11:30 | NUR ---
IV insertion INTERNAL GRINDING MACHINE OPERATOR has obtained IV access, via clean sterile technique under ultrasound by inserting 20 gauge catheter at left upper arm. IV secured properly. No trauma to site. Patient tolerated procedure well. Per INTERNAL GRINDING MACHINE OPERATOR, this is temporary, will get PICC line tomorrow.
--- NOTE | 2018-02-16 12:45 | NUR ---
Nutrition Follow-up Notes Wt.: 97.1 kg Pt was sleeping with no family by bedside. per records pt with acute kidney injury. pt had his last HD on 02/12. pt with no distress noted. pt is currently on 2 gm na diet with inadequate PO of 50% x 4 per RN doc Est. Needs ABW 109k-2507kcal (20-23 kcal/kgBW), 87-109 gms pro (0.8-1.0 gms/kgBW r/t elev RFT no HD since 02/12). Will continue to monitor pertinent labs and reassess nutrient need pr Labs: BUN 56 H, CREAT 2.36 H, ALB 1.9 L, GLU 130 H Skin: Kana scale 12, high risk, pt with multiple open blisters per tin stacker. noted pt on MVI GI: Pt had 1 BM yesterday per tin stacker. PES: Altered nutrition related lab values r/t acute/chronic medical condition aeb elev RFT mod hypoalb, hyperglycemia Decreased nutrient needs r/t adiposity aeb pt`s high BMI of 39.5 kgm2 Will continue to monitor PO intake, skin status, pertinent labs and weight trend. F/u in 3-5 days. Rec.: 1) refer to [facility] dietitian on DC. 2) consider renal specific 90 gm protein along with current diet if RFt continue to elev. 3) consider MVI/C bid. 4) continue current plan of care
[2018-02-16 13:00] VITALS: BP 133/60
[2018-02-16] MEDS: VANCOMYCIN 1,500 MG in D5W 5% 250 ML IV SCH (14:29)
[2018-02-16 17:00] VITALS: BP 116/67
[2018-02-16] MEDS ORDERED: WARFARIN SODIUM 2.5 MG TAB PO ONE (17:00)
[2018-02-16 21:40] VITALS: BP 133/63
[2018-02-16] MEDS: ATORVASTATIN 20 MG TAB PO SCH (21:54)
[2018-02-17] MEDS: SODIUM CHLORIDE 0.9% 1,000 ML IV SCH ×3 (03:15→23:15)
[2018-02-17] MEDS: PROMETHAZINE HCL 25 MG/ML 1ML IV PRN (04:22)
[2018-02-17 04:50] VITALS: BP 127/55
[2018-02-17] MEDS: PIPERACILLIN-TAZOB 3.375GM 100 ML IV SCH ×4 (05:17→23:43)
[2018-02-17 06:12] LABS: INR 2.36 (0.9-1.15); Prothrombin Time 24.1 sec (9.27-12.13)
--- NOTE | 2018-02-17 07:25 | NUR ---
Opening Shift Note Assumed care of patient, awake and alert. No S/S of distress/SOB or pain. Instructed on POC-insertion of PICC line, continue IV antibiotic, turning at least every 2 hours and dressing change today. Patient informed to call for assist PRN, will continue to monitor for changes Q1hr and PRN.
--- NOTE | 2018-02-17 08:18 | NUR ---
Contacted PICC RN, spoke with Marilynn, made aware patient needs a PICC line.
[2018-02-17 09:05] VITALS: BP 130/61
--- NOTE | 2018-02-17 10:13 | NUR ---
PICC line placement Patient/Patient significant other educated on need for PICC line placement. All risks and benefits explained and all questions and concerns addressed prior to procedure. Noted past medical history and allergies with no contraindications. INR and Plt counts within acceptable range. 4 fr PICC line inserted via right brachial vein using [employer] US and Tip Location System. Sterile technique with maximum barrier precautions utilized. Blood return obtained from the lumen and each flushed easily with NS using proper technique. PICC secured with Stat-lock; biodisc and occlusive dressing applied. Stat portable chest x-ray obtained for PICC tip placement. *Baseline Arm Circumference 44cm. Internal length 44cm. External length 0cm. PICC lot # [id number]. Note: Placed easily
[2018-02-17] MEDS ORDERED: LIDOCAINE 1% (LOCAL ANESTH.) PF 5ml SDV ID ONE (10:15)
[2018-02-17] MEDS: ASCORBIC ACID 500 MG TAB PO SCH ×2 (10:25→21:07)
[2018-02-17] MEDS: MULTIPLE VITAMIN TAB PO SCH (10:25)
[2018-02-17] MEDS: PANTOPRAZOLE 40 MG TAB PO SCH (10:25)
--- NOTE | 2018-02-17 11:22 | NUR ---
OK to use PICC line Xray completed. OK to use PICC line by Radiologist (distal SVC).
--- NOTE | 2018-02-17 11:30 | NUR ---
WOUND CARE NOTE: IN TO SEE PATIENT AT THIS TIME FOR WOUND REEVALUATION. PATIENT HAS CURRENT BERE SCORE OF 12. PATIENT HAS LESS GENERALIZED EDEMA NOTED. HE CONTINUES TO BE BEDBOUND. ADVISED PATIENT TO ALLOW PHYSICAL THERAPY TO GET HIM UP IN CHAIR IF HE CAN TOLERATE IT, SO HE BUILDS SOME STRENGTH. PATIENT VERBALIZED UNDERSTANDING. PATIENT'S OPEN BLISTERS TO HIS BLE CONTINUE TO BE OPEN, BUT ARE NOT DRAINING/WEEPING MUCH. WOUNDS DO LOOK TO BE IMPROVING. APPLIED DRESSINGS PER MD ORDER AT THIS TIME. HIS INTRAGLUTEAL FOLD FISSURE/INCONTINENCE ASSOCIATED DERMATITIS APPEARS TO HAVE WORSENED. HE CONTINUES TO HAV MULTIPLE BOUTS WITH LOOSE DARK BROWN STOOL. HE IS INCONTINENT OF STOOL AT THIS TIME. PERICARE GIVEN. IGF FISSURE MEASURES 5 X 2 CM. WOUND BED IS PINK, PERIWOUND IS DARK RED. SKIN IS BLANCHABLE. WILL ORDER SPECIALTY BARIATRIC AIR BED WITH TRAPEZE AT THIS TIME, HE CONTINUES TO HAVE EDEMATOUS SKIN, AND IS WEAK, WITH INCONTINENCE. RECOMMEND: ADD- SPECIALTY AIR MATTRESS, UP IN CHAIR, CHANGE FROM DAILY TO EOD/PRN DRESSING CHANGES ON BLE, CONTINUATION WITH ALL OTHER WOUND CARE ORDERS PREVIOUSLY PRESCRIBED BY MD. WOUND CARE TEAM WILL CONTINUE TO MONITOR. Addendum: 02/17/18 at 1644 by Carolin Elaine RN Amended: Links added.
[2018-02-17 12:36] VITALS: BP 145/76
--- NOTE | 2018-02-17 13:30 | NUR ---
Physical Therapist Johnny informed of patient needing physical therapy evaluation and Dr. Ponce request that he gets out of bed.
--- NOTE | 2018-02-17 14:00 | NUR ---
WOUND CARE NOTE: ORDERED SPECIALTY BARIATRIC AIRBED WITH JORGE A. PATIENT TO BE PLACED, PENDING DELIVERY BY CONCHIS GOODRICH
[2018-02-17] MEDS ORDERED: WARFARIN SODIUM 2.5 MG TAB PO ONE (17:15)
[2018-02-17 17:16] VITALS: BP 119/64
--- NOTE | 2018-02-17 18:38 | NUR ---
Patient was transferred to a specialty bariatric air bed with kimmie.
[2018-02-17] MEDS: ATORVASTATIN 20 MG TAB PO SCH (21:07)
[2018-02-17] MEDS: SODIUM CHLOR 0.9% PF (SALINE LOCK) 10ML VIAL/SYR IV SCH (21:07)
[2018-02-17 22:00] VITALS: BP 130/54
[2018-02-18] MEDS ORDERED: VANCOMYCIN 1,500 MG in D5W 5% 250 ML IV SCH ×2 (02:00→14:00)
[2018-02-18 05:00] VITALS: BP 116/52
[2018-02-18] MEDS: PIPERACILLIN-TAZOB 3.375GM 100 ML IV SCH ×3 (05:16→18:23)
[2018-02-18 05:34] LABS: Basophils # (auto) 0 uL; Basophils % (auto) 0.4 % (0.0-2.0); Eosinophils # (auto) 0.2 uL; Eosinophils % (auto) 1.4 % (0.0-7.0); Hematocrit 26.4 % (41.0-53.0); Hemoglobin 8.6 g/dL (13.5-17.5); Lymphocytes % (auto) 7.5 % (10.0-50.0); Mean Corpuscular Hemoglobin 31.2 pg (28.0-32.0); Mean Corpuscular Hgb Conc. 32.4 g/dL (32.0-36.0); Mean Corpuscular Volume 96.3 fL (80.0-100.0); Monocytes # (auto) 1.6 uL; Monocytes % (auto) 12.1 % (0.0-12.0); Neutrophils # (auto) 10.3 uL; Neutrophils % (auto) 78.6 % (37.0-80.0); Platelet Count (auto) 295 10^3/uL (140-450); Red Blood Cells 2.75 10^6/uL (4.5-5.90); Red Cell Distribution Width 13.8 % (11.8-14.3); White Blood Cell 13.1 10^3/uL (4.4-10.8)
[2018-02-18 05:38] LABS: INR 2.71 (0.9-1.15); Prothrombin Time 27.4 sec (9.27-12.13)
[2018-02-18 05:42] LABS: Calcium 10.1 mg/dL (8.5-10.1); Potassium 3.1 mmol/L (3.5-5.1)
[2018-02-18 05:55] LABS: BUN/Creatinine Ratio 22.8; Bilirubin, Total 0.6 mg/dL (0.2-1.0); Total Protein 7.3 g/dL (6.4-8.2)
[2018-02-18 06:16] LABS: Albumin 1.8 g/dL (3.4-5.0)
[2018-02-18 08:58] VITALS: BP 126/50
[2018-02-18] MEDS: SODIUM CHLORIDE 0.9% 1,000 ML IV SCH ×2 (09:15→19:15)
[2018-02-18] MEDS: MULTIPLE VITAMIN TAB PO SCH (09:47)
[2018-02-18] MEDS: ASCORBIC ACID 500 MG TAB PO SCH ×2 (09:47→22:01)
[2018-02-18] MEDS: PANTOPRAZOLE 40 MG TAB PO SCH (09:47)
[2018-02-18] MEDS: SODIUM CHLOR 0.9% PF (SALINE LOCK) 10ML VIAL/SYR IV SCH ×2 (09:48→22:01)
[2018-02-18 13:00] VITALS: BP 115/86
[2018-02-18] MEDS ORDERED: MIDAZOLAM HCL 1MG/1ML-2 ML VIAL IV ONE (14:30)
[2018-02-18] MEDS ORDERED: MIDAZOLAM HCL 1MG/1ML-2 ML VIAL ONE (14:49)
--- NOTE | 2018-02-18 14:55 | NUR ---
Patient transported to pre op via hospital bed.
[2018-02-18] MEDS ORDERED: METOCLOPRAMIDE HCL 5MG/ml INJ 2ml VIAL ONE (15:04)
[2018-02-18] MEDS ORDERED: WARFARIN SODIUM 2.5 MG TAB PO ONE (17:00)
[2018-02-18 17:04] VITALS: BP 145/54
--- NOTE | 2018-02-18 20:02 | NUR ---
CLOSING NOTE REPORT GIVEN TO GENERAL UTILITY WORKER RNMERRICK. NO S/S OF SOB,DISTRESS OR PAIN. BED IN LOW LOCK POSITION, CALL LIGHT WITHIN REACH.
--- NOTE | 2018-02-18 20:41 | NUR ---
open note assumed care of pt. awake and alert upon entering room. pt on 3L NC no s/s distress noted or expressed. pt denied any pain. martinez in place and draining. pt updated on plan of care. will assist patient to turn q2hr and as needed. call light in reach and will continue to monitor.
[2018-02-18 22:00] VITALS: BP 132/59
[2018-02-18] MEDS: ATORVASTATIN 20 MG TAB PO SCH (22:01)
[2018-02-19] MEDS: PIPERACILLIN-TAZOB 3.375GM 100 ML IV SCH ×3 (00:08→12:27)
[2018-02-19 05:11] VITALS: BP 113/57
[2018-02-19] MEDS: SODIUM CHLORIDE 0.9% 1,000 ML IV SCH ×2 (05:28→15:15)
[2018-02-19 05:54] LABS: Basophils # (auto) 0 uL; Eosinophils # (auto) 0.1 uL; Hematocrit 25.9 % (41.0-53.0); Hemoglobin 8.4 g/dL (13.5-17.5); Lymphocytes # (auto) 1.2 uL; Lymphocytes % (auto) 9.1 % (10.0-50.0); Mean Corpuscular Volume 93.3 fL (80.0-100.0); Platelet Count (auto) 330 10^3/uL (140-450)
[2018-02-19 05:55] LABS: Basophils % (auto) 0.4 % (0.0-2.0); Mean Corpuscular Hemoglobin 30.2 pg (28.0-32.0); Mean Corpuscular Hgb Conc. 32.4 g/dL (32.0-36.0); Monocytes # (auto) 1.6 uL; Monocytes % (auto) 12.6 % (0.0-12.0); Neutrophils # (auto) 9.9 uL; Neutrophils % (auto) 76.9 % (37.0-80.0); Red Blood Cells 2.78 10^6/uL (4.5-5.90); Red Cell Distribution Width 13.5 % (11.8-14.3); White Blood Cell 12.9 10^3/uL (4.4-10.8)
[2018-02-19 06:05] LABS: Albumin 1.8 g/dL (3.4-5.0); BUN/Creatinine Ratio 19.2; Calcium 10.3 mg/dL (8.5-10.1)
[2018-02-19 06:06] LABS: INR 2.68 (0.9-1.15); Prothrombin Time 27.1 sec (9.27-12.13)
[2018-02-19 06:08] LABS: Bilirubin, Total 0.7 mg/dL (0.2-1.0); Total Protein 7.3 g/dL (6.4-8.2)
[2018-02-19 08:53] VITALS: BP 131/59
--- NOTE | 2018-02-19 10:00 | NUR ---
Wound care as ordered. Patient tolerated well, no S/S of distress. Will continue to monitor.
[2018-02-19] MEDS: MULTIPLE VITAMIN TAB PO SCH (10:03)
[2018-02-19] MEDS: ASCORBIC ACID 500 MG TAB PO SCH ×2 (10:03→21:36)
[2018-02-19] MEDS: SODIUM CHLOR 0.9% PF (SALINE LOCK) 10ML VIAL/SYR IV SCH ×2 (10:03→21:36)
[2018-02-19] MEDS: PANTOPRAZOLE 40 MG TAB PO SCH (10:03)
--- NOTE | 2018-02-19 11:30 | NUR ---
Patient daughter called. Updated on patient POC.
[2018-02-19 12:54] VITALS: BP 128/53
--- NOTE | 2018-02-19 13:40 | NUR ---
Spoke with MD Kendall about patient discharge. Per MD, patient is ok to be discharged and have home health set up afterwards. Per MD order is in for home health. Negrita in case management notified.
[2018-02-19] MEDS ORDERED: WARFARIN SODIUM 2.5 MG TAB PO ONE (17:00)
--- NOTE | 2018-02-19 17:21 | NUR ---
assessment Per consult [facility] for physical therapy. MD order has been sent to [facility] auth # [id number]. Jayson Viveros at [place] service will start on 02/22/18. Addendum: 02/19/18 at 1723 by Negrita Chapman Amended: Links added.
--- NOTE | 2018-02-19 17:30 | NUR ---
Martinez catheter dc'd Order to discontinue martinez catheter. Martinez dc'd with clean technique following deflation of balloon. Patient tolerated well with no complaints of pain. Continue care.
--- NOTE | 2018-02-19 17:45 | NUR ---
WOUND PICTURES TAKEN PENDING DISCHARGE.
[2018-02-19 17:49] VITALS: BP 123/52
--- NOTE | 2018-02-19 18:00 | NUR ---
PATIENT ENCOURAGED TO DRINK WATER, WAITING FOR PATIENT TO VOID.
--- NOTE | 2018-02-19 19:57 | NUR ---
CLOSING NOTE SKI LIFT ATTENDANT NENITA ESCALERA AWARE OF PATIENT DISCHARGE PENDING, PAPERWORK PASSED ON. SKI LIFT ATTENDANT RN AWARE OF PATIENT INABILITY TO URINATE AFTER RICHARDSON HAS BEEN REMOVED. PATIENT IN BED LOW LOCK POSITION, NO S/S OF DISTRESS. FAMILY AT BEDSIDE. Addendum: 02/19/18 at 2013 by ANDREI ANAND RN RN AWARE OF WOUND CHANGE AND PICTURES TAKEN PENDING DISCHARGE.
--- NOTE | 2018-02-19 20:00 | NUR ---
Patient is unable to urinate yet after removal of the martinez catheter, bladder scan done with 159 cc of urine.
--- NOTE | 2018-02-19 20:00 | NUR ---
Aas Day shift Douglas Kumar she took the discharge picture of the wound.
--- NOTE | 2018-02-19 20:00 | NUR ---
Opening Shift Note Assumed care of patient, awake and alert. No S/S of distress/SOB or pain. Instructed on POC and to call for assist PRN, will continue to monitor for changes Q1hr and PRN.Patient is for discharge today but awaiting for the patient to urinate, due to they removed the martinez cath. earlier.
[2018-02-19] MEDS: ATORVASTATIN 20 MG TAB PO SCH (21:35)
[2018-02-19 22:00] VITALS: BP 125/65
--- NOTE | 2018-02-19 22:23 | NUR ---
Informed N.P Jaleel Ralph regarding patient is for discharge, though awaiting for patient to urinate,patient is not urinating yet, and informed N.p that bladder scan done with 159 cc only in the bladder and said its lindsay for him to go home.
--- NOTE | 2018-02-19 23:00 | NUR ---
Bladder scan done again with 317 cc urine in the bladder, given urinal and able to urinate 100 cc output.
--- NOTE | 2018-02-19 23:20 | NUR ---
Patient said he is updated with the pneumonia shot, but do not remember when.
--- NOTE | 2018-02-19 23:20 | NUR ---
Given discharged instructions to the patient and explained and understood with prescriptions included, Continue home meds. including coumadin and lisinopril and signed.
--- NOTE | 2018-02-19 23:30 | NUR ---
Patient instructed to his appointment with DR. Plaza on 03/08/18 at 4pm.phone [phone],at [address] [place] [address].Follow-up with Dr. Callahan in 2 weeks, office is closed, tel. no. of [phone], Follow-up with the Nephrology-Dr. Jordan in 3-5 days, office is close tel. no of [phone].
--- NOTE | 2018-02-19 23:30 | NUR ---
Removed the picc-line in the right upper arm put gauzed and taped it, Return the tel box in the tele room.
--- NOTE | 2018-02-20 00:05 | NUR ---
Discharged in good condition awake alert oriented x 4 per wheel chair accompanied with the family to their private vehicle to home.
== END 2018-02-20 00:05 | disposition home or self-care (01) | DRG 871 ==
LOC: ER 09:51 → OVERFLOW 13:52 → DOU IN ICU 17:47 → TELE-WESTW 02-14 10:41
PROVIDERS: ADMIT Internal Medicine; ATTEND Family Medicine
PROC: 5A1D70Z Performance of Urinary Filtration, Intermittent, Less than 6 Hours Per Day (ICD-10-PCS; principal; 2018-02-10)
PROC: 02HV33Z Insertion of Infusion Device into Superior Vena Cava, Percutaneous Approach (ICD-10-PCS; 2018-02-10)
PROC: B548ZZA Ultrasonography of Superior Vena Cava, Guidance (ICD-10-PCS; 2018-02-10)
PROC: B5181ZA Fluoroscopy of Superior Vena Cava using Low Osmolar Contrast, Guidance (ICD-10-PCS; 2018-02-10)
PROC: 02H633Z Insertion of Infusion Device into Right Atrium, Percutaneous Approach (ICD-10-PCS; 2018-02-10)
PROC: B2141ZZ Fluoroscopy of Right Heart using Low Osmolar Contrast (ICD-10-PCS; 2018-02-10)
PROC: 5A1D70Z Performance of Urinary Filtration, Intermittent, Less than 6 Hours Per Day (ICD-10-PCS; 2018-02-11)
PROC: 5A1D70Z Performance of Urinary Filtration, Intermittent, Less than 6 Hours Per Day (ICD-10-PCS; 2018-02-12)
PROC: 02HV33Z Insertion of Infusion Device into Superior Vena Cava, Percutaneous Approach (ICD-10-PCS; 2018-02-17)
PROC: 06PYX3Z Removal of Infusion Device from Lower Vein, External Approach (ICD-10-PCS; 2018-02-19)
DX: A41.9 Sepsis, unspecified organism (principal); N17.0 Acute kidney failure with tubular necrosis; N18.6 End stage renal disease; G93.49 Other encephalopathy; I13.2 Hypertensive heart and chronic kidney disease with heart failure and with stage 5 chronic kidney disease, or end stage renal disease; I42.9 Cardiomyopathy, unspecified; Z68.41 Body mass index [BMI] 40.0-44.9, adult; E87.5 Hyperkalemia; I50.9 Heart failure, unspecified; I25.10 Atherosclerotic heart disease of native coronary artery without angina pectoris; E66.01 Morbid (severe) obesity due to excess calories; F17.200 Nicotine dependence, unspecified, uncomplicated; E78.00 Pure hypercholesterolemia, unspecified; I48.91 Unspecified atrial fibrillation; M19.90 Unspecified osteoarthritis, unspecified site; E78.5 Hyperlipidemia, unspecified; G89.29 Other chronic pain; F41.9 Anxiety disorder, unspecified; Z95.2 Presence of prosthetic heart valve; Z95.810 Presence of automatic (implantable) cardiac defibrillator; Z99.2 Dependence on renal dialysis
CPT/HCPCS: 36415; 36569; 51702; 70450; 71045; 76000; 76775; 76942; 80048; 80053; 80061; 80202; 81001; 82550; 82728; 82962; 83540; 83550; 83735; 83880; 84484; 85025; 85610; 85652; 85730; 86850; 86900; 86901; 87040; 87070; 87081; 87086; 87205; 90935; 93005; 93306; 93312; 93886; 93971; 94640; 96361; 96374; 96375; 97110; 97163; 97530; 99152; 99291; A6257; G0378; J0696; J0885; J1815; J2001; J2250; J2405; J2543; J3430; J7060

== ENCOUNTER → 2018-04-27 | Outpatient (CLI) | payer OTHER ==
[~2018-04-27] MED LIST changes: +DOXY100C2 PO; +LISI-275 PO
[2018-04-27 10:28] LABS: Basophils # (auto) 0 uL; Basophils % (auto) 0.5 % (0.0-2.0); Eosinophils # (auto) 0.2 uL; Eosinophils % (auto) 2.2 % (0.0-7.0); Hemoglobin 9.9 g/dL (13.5-17.5); Lymphocytes # (auto) 1.9 uL; Lymphocytes % (auto) 20.7 % (10.0-50.0); Mean Corpuscular Hemoglobin 29.7 pg (28.0-32.0); Mean Corpuscular Hgb Conc. 32.1 g/dL (32.0-36.0); Mean Corpuscular Volume 92.5 fL (80.0-100.0); Monocytes # (auto) 0.6 uL; Monocytes % (auto) 6.5 % (0.0-12.0); Neutrophils # (auto) 6.3 uL; Neutrophils % (auto) 70.1 % (37.0-80.0); Platelet Count (auto) 382 10^3/uL (140-450); Red Blood Cells 3.35 10^6/uL (4.5-5.90); Red Cell Distribution Width 16.3 % (11.8-14.3)
[2018-04-27 10:30] LABS: Urine Bacteria FEW /hpf (None Seen); Urine Blood 1+ /uL (Negative); Urine Specific Gravity 1.016 (1.001-1.035); Urine WBC 1422 /hpf (0 - 3); Urine WBC Clumps PRESENT /hpf (None Seen)
[2018-04-27 10:32] LABS: Partial Thromboplastin Time 27.2 sec (23.78-33.04); Prothrombin Time 10.7 sec (9.27-12.13)
[2018-04-27 11:08] LABS: BUN/Creatinine Ratio 20.6; Bilirubin, Total 0.3 mg/dL (0.2-1.0); Calcium 10.3 mg/dL (8.5-10.1); Total Protein 8.8 g/dL (6.4-8.2)
[2018-04-27 11:17] LABS: Potassium 4.4 mmol/L (3.5-5.1)
[2018-04-27 20:11] LABS: Folate (Folic Acid) 9.02 ng/mL (5.38-24); Prostate Specific Antigen 1.29 ng/mL (0.0-4.0)
== END | disposition home or self-care (01) ==
LOC: LAB 09:39
PROVIDERS: ATTEND Internal Medicine
DX: I73.9 Peripheral vascular disease, unspecified (principal); E78.5 Hyperlipidemia, unspecified; I13.0 Hypertensive heart and chronic kidney disease with heart failure and stage 1 through stage 4 chronic kidney disease, or unspecified chronic kidney disease; I50.9 Heart failure, unspecified; N18.2 Chronic kidney disease, stage 2 (mild)
CPT/HCPCS: 36415; 80053; 81001; 82607; 82746; 84153; 85025; 85610; 85730; 87086; 87088; 87186

== ENCOUNTER → 2018-08-16 | Outpatient (CLI) | payer OTHER ==
[2018-08-16 12:03] LABS: Basophils # (auto) 0 uL; Basophils % (auto) 0.7 % (0.0-2.0); Eosinophils # (auto) 0.1 uL; Eosinophils % (auto) 1.6 % (0.0-7.0); Hematocrit 32.8 % (41.0-53.0); Hemoglobin 10.7 g/dL (13.5-17.5); Lymphocytes # (auto) 1.6 uL; Lymphocytes % (auto) 23.6 % (10.0-50.0); Mean Corpuscular Hemoglobin 30.5 pg (28.0-32.0); Mean Corpuscular Hgb Conc. 32.6 g/dL (32.0-36.0); Mean Corpuscular Volume 93.4 fL (80.0-100.0); Monocytes # (auto) 0.6 uL; Monocytes % (auto) 9.4 % (0.0-12.0); Neutrophils # (auto) 4.3 uL; Neutrophils % (auto) 64.7 % (37.0-80.0); Platelet Count (auto) 218 10^3/uL (140-450); Red Blood Cells 3.52 10^6/uL (4.5-5.90); Red Cell Distribution Width 15.4 % (11.8-14.3); White Blood Cell 6.7 10^3/uL (4.4-10.8)
[2018-08-16 12:07] LABS: Potassium 3.5 mmol/L (3.5-5.1)
[2018-08-16 12:18] LABS: Albumin 3.5 g/dL (3.4-5.0); BUN/Creatinine Ratio 13.3; Bilirubin, Total 0.6 mg/dL (0.2-1.0); Calcium 9.9 mg/dL (8.5-10.1); Total Protein 8.3 g/dL (6.4-8.2)
[2018-08-16 16:53] LABS: Urine Bacteria NONE SEEN /hpf (None Seen); Urine Blood Negative /uL (Negative); Urine Hyaline Cast FEW /lpf (0 - 2); Urine Specific Gravity 1.011 (1.001-1.035); Urine WBC 1 /hpf (0 - 3)
== END | disposition home or self-care (01) ==
LOC: LAB 10:11
PROVIDERS: ATTEND Nurse Practitioner
DX: E78.5 Hyperlipidemia, unspecified (principal)
CPT/HCPCS: 36415; 80053; 80061; 81001; 84443; 85025

== ENCOUNTER → 2018-12-20 | Outpatient (CLI) | payer OTHER | END | disposition home or self-care (01) | LOC: LAB 10:50 | PROVIDERS: ATTEND Internal Medicine Gastroenterology | DX: Z12.11 Encounter for screening for malignant neoplasm of colon (principal); K64.9 Unspecified hemorrhoids | CPT/HCPCS: 82270 ==

== ENCOUNTER → 2019-02-18 | Outpatient (CLI) | payer OTHER | END | disposition home or self-care (01) | LOC: XYW 08:08 | PROVIDERS: ATTEND Internal Medicine | DX: Z01.818 Encounter for other preprocedural examination (principal); I05.1 Rheumatic mitral insufficiency | CPT/HCPCS: 93306 ==

== ENCOUNTER → 2019-10-05 | Outpatient (CLI) | payer OTHER ==
[~2019-10-05] VITALS: Ht 182.9 cm; Wt 100.7 kg
[~2019-10-05] MED LIST changes: +ADENOSINE 85 MG in GIVE UN-DILUTED 0 ML IV STA
== END | disposition home or self-care (01) ==
LOC: XY 08:13
PROVIDERS: ATTEND Internal Medicine
DX: I10 Essential (primary) hypertension (principal)
CPT/HCPCS: 78452; 93017; A9500; J0153

== ENCOUNTER → 2020-05-15 | Outpatient (CLI) | payer OTHER ==
[~2020-05-15] MED LIST changes: -ADENOSINE 85 MG in GIVE UN-DILUTED 0 ML IV STA; +SIMV20TA2; -SIMV20TA90; +SPIR25TA PO; -SPIR25TA88 PO
[2020-05-15 12:35] LABS: Urine WBC None Seen /hpf (0 - 3)
[2020-05-15 12:39] LABS: Basophils # (auto) 0.1 10 ^3/uL (0-0.2); Basophils % (auto) 1.2 % (0.0-2.0); Eosinophils # (auto) 0.1 10 ^3/uL (0-0.8); Hematocrit 34.9 % (41.0-53.0); Hemoglobin 11.4 g/dL (13.5-17.5); Lymphocytes # (auto) 1.5 10 ^3/uL (0.4-5.4); Lymphocytes % (auto) 21.6 % (10.0-50.0); Mean Corpuscular Hemoglobin 30.7 pg (28.0-32.0); Mean Corpuscular Hgb Conc. 32.7 g/dL (32.0-36.0); Monocytes # (auto) 0.6 10 ^3/uL (0-1.3); Monocytes % (auto) 7.9 % (0.0-12.0); Neutrophils # (auto) 4.8 10 ^3/uL (1.6-8.6); Neutrophils % (auto) 67.3 % (37.0-80.0); Nucleated Red Blood Cells % 0.1 %; Platelet Count (auto) 266 10^3/uL (140-450); Red Blood Cells 3.71 10^6/uL (4.5-5.90); Red Cell Distribution Width 15.5 % (11.8-14.3); White Blood Cell 7.2 10^3/uL (4.4-10.8)
[2020-05-15 12:45] LABS: Urine Bacteria NONE SEEN /hpf (None Seen); Urine Blood Negative /uL (Negative); Urine Hyaline Cast FEW /lpf (0 - 2); Urine Specific Gravity 1.006 (1.001-1.035)
[2020-05-15 13:03] LABS: INR 2.04 (0.9-1.15); Partial Thromboplastin Time 42.2 sec (23.0-31.2)
[2020-05-15 13:19] LABS: Albumin 3.5 g/dL (3.4-5.0); Calcium 10.2 mg/dL (8.5-10.1); Potassium 4.4 mmol/L (3.5-5.1); Uric Acid 10.7 mg/dL (3.5-7.2)
[2020-05-15 13:23] LABS: BUN/Creatinine Ratio 18.3; Bilirubin, Total 0.7 mg/dL (0.2-1.0); Total Protein 9.2 g/dL (6.4-8.2)
== END | disposition home or self-care (01) ==
LOC: LAB 12:16
PROVIDERS: ATTEND Internal Medicine
DX: I10 Essential (primary) hypertension (principal); I48.91 Unspecified atrial fibrillation
CPT/HCPCS: 36415; 80053; 80061; 81001; 82306; 82607; 83036; 84443; 84550; 85025; 85610; 85730

== ENCOUNTER → 2020-10-05 | Outpatient (CLI) | payer OTHER ==
[~2020-10-05] MED LIST changes: +CHOL20007 PO; +FURO1TAB31 PO; +LISI40TA11 PO; +SILD100T57 PO
[2020-10-05 10:08] LABS: Basophils # (auto) 0.1 10 ^3/uL (0-0.2); Basophils % (auto) 0.7 % (0.0-2.0); Eosinophils # (auto) 0.3 10 ^3/uL (0-0.8); Eosinophils % (auto) 3.9 % (0.0-7.0); Hematocrit 37.2 % (41.0-53.0); Hemoglobin 12.3 g/dL (13.5-17.5); Lymphocytes # (auto) 1.6 10 ^3/uL (0.4-5.4); Lymphocytes % (auto) 22.4 % (10.0-50.0); Mean Corpuscular Hemoglobin 31.4 pg (28.0-32.0); Mean Corpuscular Volume 95.1 fL (80.0-100.0); Monocytes # (auto) 0.5 10 ^3/uL (0-1.3); Monocytes % (auto) 6.7 % (0.0-12.0); Neutrophils # (auto) 4.8 10 ^3/uL (1.6-8.6); Neutrophils % (auto) 66.3 % (37.0-80.0); Red Blood Cells 3.91 10^6/uL (4.5-5.90); Red Cell Distribution Width 14.8 % (11.8-14.3); White Blood Cell 7.2 10^3/uL (4.4-10.8)
[2020-10-05 10:23] LABS: Albumin 3.5 g/dL (3.4-5.0); Calcium 10.2 mg/dL (8.5-10.1); Potassium 4.6 mmol/L (3.5-5.1)
[2020-10-05 10:24] LABS: INR 1.77 (0.9-1.15); Partial Thromboplastin Time 38.1 sec (23.6-33.0)
[2020-10-05 10:27] LABS: Bilirubin, Total 0.8 mg/dL (0.2-1.0); Total Protein 8.8 g/dL (6.4-8.2)
== END | disposition home or self-care (01) ==
LOC: LAB 09:41
PROVIDERS: ATTEND Internal Medicine
DX: Z01.812 Encounter for preprocedural laboratory examination (principal)
CPT/HCPCS: 36415; 80053; 85025; 85610; 85730

== ENCOUNTER 2020-10-08 06:57 | Day surgery (SDC) | payer OTHER ==
[~2020-10-08] VITALS: Ht 182.9 cm; Wt 133.4 kg
[~2020-10-08 06:57] MED LIST changes: -DOXY100C2 PO; -HYDR-1421; -LISI-275 PO
[2020-10-08] MEDS ORDERED: MIDAZOLAM HCL 2MG/2ML 2ml VIAL (1mg/ml) ONE (07:47)
[2020-10-08] MEDS ORDERED: fentaNYL CITRATE 100 MCG/2 ML VL ONE (07:47)
[2020-10-08] MEDS ORDERED: ALPRAZolam 0.5 MG TAB PO ONE (10:00)
== END 2020-10-08 16:30 | disposition home or self-care (01) ==
LOC: CATH 06:57
PROVIDERS: ATTEND Internal Medicine Cardiovascular Disease
DX: T82.111A Breakdown (mechanical) of cardiac pulse generator (battery), initial encounter (principal); I10 Essential (primary) hypertension; E78.5 Hyperlipidemia, unspecified; Z20.822 Contact with and (suspected) exposure to COVID-19; Z87.891 Personal history of nicotine dependence; Z98.890 Other specified postprocedural states; Z79.899 Other long term (current) drug therapy; Y83.8 Other surgical procedures as the cause of abnormal reaction of the patient, or of later complication, without mention of misadventure at the time of the procedure
CPT/HCPCS: 33228; C1882; J2250; J3010; U0003; 99152; 99153

== ENCOUNTER → 2021-04-05 | Outpatient (CLI) | payer OTHER ==
[2021-04-05 09:12] LABS: Basophils # (auto) 0 10 ^3/uL (0-0.2); Basophils % (auto) 0.7 % (0.0-2.0); Eosinophils # (auto) 0.2 10 ^3/uL (0-0.8); Eosinophils % (auto) 2.4 % (0.0-7.0); Hematocrit 35.1 % (41.0-53.0); Hemoglobin 11.4 g/dL (13.5-17.5); Lymphocytes # (auto) 1.9 10 ^3/uL (0.4-5.4); Lymphocytes % (auto) 28.3 % (10.0-50.0); Mean Corpuscular Hemoglobin 30.5 pg (28.0-32.0); Mean Corpuscular Hgb Conc. 32.4 g/dL (32.0-36.0); Mean Corpuscular Volume 94.1 fL (80.0-100.0); Monocytes # (auto) 0.5 10 ^3/uL (0-1.3); Neutrophils % (auto) 60.6 % (37.0-80.0); Red Blood Cells 3.73 10^6/uL (4.5-5.90); Red Cell Distribution Width 14.9 % (11.8-14.3); White Blood Cell 6.6 10^3/uL (4.4-10.8)
[2021-04-05 09:33] LABS: Cholesterol 118 mg/dL (< 200); HDL Cholesterol 48 mg/dL (40-59); LDL Cholesterol 58 mg/dL (< 100); Triglycerides 85 mg/dL (< 150)
== END | disposition home or self-care (01) ==
LOC: LAB 08:27
PROVIDERS: ATTEND Student in an Organized Health Care Education/Training Program
DX: Z00.00 Encounter for general adult medical examination without abnormal findings (principal)
CPT/HCPCS: 36415; 80061; 83036; 85025

== ENCOUNTER → 2021-04-09 | Outpatient (CLI) | payer OTHER | END | disposition home or self-care (01) | LOC: LAB 09:15 | PROVIDERS: ATTEND Student in an Organized Health Care Education/Training Program | DX: Z00.00 Encounter for general adult medical examination without abnormal findings (principal) | CPT/HCPCS: 82274 ==

== ENCOUNTER 2021-12-15 10:45 | Emergency (ER) | payer OTHER ==
[~2021-12-15] VITALS: Ht 185.4 cm; Wt 125.0 kg
[2021-12-15 14:16] VITALS: BP 130/63
[2021-12-15] MEDS ORDERED: traMADol HCL 50 MG TAB PO ONE (14:45)
[2021-12-15] MEDS ORDERED: TRAM50TA2 PO (16:44)
[2021-12-16] MEDS ORDERED: TRAM100T37 PO (20:10)
== END 2021-12-15 16:56 | disposition home or self-care (01) ==
LOC: ER 10:45
DX: M54.16 Radiculopathy, lumbar region (principal); I11.0 Hypertensive heart disease with heart failure; I50.9 Heart failure, unspecified; Z86.73 Personal history of transient ischemic attack (TIA), and cerebral infarction without residual deficits; E78.5 Hyperlipidemia, unspecified; Z95.0 Presence of cardiac pacemaker; Z79.899 Other long term (current) drug therapy
CPT/HCPCS: 72100

== ENCOUNTER → 2022-05-30 | Outpatient (CLI) | payer OTHER ==
[~2022-05-30] MED LIST changes: +TRAM100T37 PO; +TRAM50TA2 PO
[2022-05-30 08:35] LABS: Basophils # (auto) 0.1 10 ^3/uL (0-0.2); Basophils % (auto) 0.9 % (0.0-2.0); Eosinophils # (auto) 0.1 10 ^3/uL (0-0.8); Hematocrit 31.4 % (41.0-53.0); Hemoglobin 10.1 g/dL (13.5-17.5); Lymphocytes # (auto) 1.5 10 ^3/uL (0.4-5.4); Lymphocytes % (auto) 21.1 % (10.0-50.0); Mean Corpuscular Hemoglobin 29.2 pg (28.0-32.0); Mean Corpuscular Hgb Conc. 32.1 g/dL (32.0-36.0); Mean Corpuscular Volume 90.9 fL (80.0-100.0); Monocytes # (auto) 0.6 10 ^3/uL (0-1.3); Monocytes % (auto) 7.9 % (0.0-12.0); Neutrophils % (auto) 68.1 % (37.0-80.0); Nucleated Red Blood Cells % 0.1 %; Red Blood Cells 3.46 10^6/uL (4.5-5.90); Red Cell Distribution Width 15.3 % (11.8-14.3); White Blood Cell 7.3 10^3/uL (4.4-10.8)
[2022-05-30 09:12] LABS: Albumin 3.1 g/dL (3.4-5.0); Potassium 4.2 mmol/L (3.5-5.1)
[2022-05-30 09:17] LABS: BUN/Creatinine Ratio 13.1 (10.0-20.0); Bilirubin, Total 0.5 mg/dL (0.2-1.0); Total Protein 8.4 g/dL (6.4-8.2)
== END | disposition home or self-care (01) ==
LOC: LAB 08:12
PROVIDERS: ATTEND Student in an Organized Health Care Education/Training Program
DX: I48.20 Chronic atrial fibrillation, unspecified (principal); I27.21 Secondary pulmonary arterial hypertension; I42.0 Dilated cardiomyopathy
CPT/HCPCS: 36415; 80053; 80061; 85025

== ENCOUNTER → 2022-06-02 | Outpatient (CLI) | payer OTHER | END | disposition home or self-care (01) | LOC: LAB 09:03 | PROVIDERS: ATTEND Student in an Organized Health Care Education/Training Program | DX: I42.0 Dilated cardiomyopathy (principal); I27.21 Secondary pulmonary arterial hypertension; I48.20 Chronic atrial fibrillation, unspecified | CPT/HCPCS: 82274 ==

== ENCOUNTER 2022-12-28 09:29 | Emergency (ER) | payer OTHER ==
[~2022-12-28] VITALS: Ht 182.9 cm; Wt 121.5 kg
[~2022-12-28 09:29] MED LIST changes: -LISI40TA11 PO; +LISI40TA16 PO; +SIMV-270; -SIMV20TA2; +TRAM100T32 PO; -TRAM100T37 PO; +WARF-66 PO; -WARF5TAB71 PO
[2022-12-28 10:25] LABS: Basophils # (auto) 0 10 ^3/uL (0-0.2); Basophils % (auto) 0.7 % (0.0-2.0); Eosinophils # (auto) 0.1 10 ^3/uL (0-0.8); Eosinophils % (auto) 1.2 % (0.0-7.0); Hematocrit 32.9 % (41.0-53.0); Hemoglobin 10.7 g/dL (13.5-17.5); Lymphocytes # (auto) 1.4 10 ^3/uL (0.4-5.4); Lymphocytes % (auto) 18.9 % (10.0-50.0); Mean Corpuscular Hemoglobin 30.5 pg (28.0-32.0); Mean Corpuscular Hgb Conc. 32.6 g/dL (32.0-36.0); Mean Corpuscular Volume 93.7 fL (80.0-100.0); Monocytes # (auto) 0.5 10 ^3/uL (0-1.3); Monocytes % (auto) 6.4 % (0.0-12.0); Neutrophils # (auto) 5.3 10 ^3/uL (1.6-8.6); Neutrophils % (auto) 72.8 % (37.0-80.0); Red Blood Cells 3.51 10^6/uL (4.5-5.90); White Blood Cell 7.3 10^3/uL (4.4-10.8)
[2022-12-28 10:41] LABS: Alanine Aminotransferase 21 U/L (7-40); Albumin 3.9 g/dL (3.2-4.8); Alkaline Phosphatase 188 U/L (46-116); Anion Gap 7 (5-15); Aspartate Aminotransferase 25 U/L (13-40); BUN/Creatinine Ratio 13.5 (10.0-20.0); Blood Urea Nitrogen 17 mg/dL (9-23); Calcium 10.1 mg/dL (8.5-10.1); Carbon Dioxide 27 mmol/L (20-30); Chloride 109 mmol/L (98-107); Glucose 98 mg/dL (74-106); Potassium 4.3 mmol/L (3.5-5.1); Sodium 143 mmol/L (136-145)
[2022-12-28 10:42] LABS: Bilirubin, Total 0.7 mg/dL (0.2-1.0); Total Protein 7.1 g/dL (5.7-8.2)
[2022-12-28] MEDS ORDERED: CLON0.1T PO (12:29)
[2022-12-28 12:59] LABS: Urine Bacteria NONE SEEN /hpf (None Seen); Urine Blood Negative /uL (Negative); Urine Clarity Clear (Clear); Urine Color STRAW (Yellow); Urine Hyaline Cast MANY /lpf (0 - 2); Urine Mucus FEW (None Seen); Urine Protein, UAD Negative (Negative); Urine Specific Gravity 1.011 (1.001-1.035); Urine Urobilinogen Normal (Negative); Urine WBC <1 /hpf (0 - 3)
[2022-12-28 13:45] VITALS: BP 139/68; PULSE 70; RESP 18; TEMP 97.8; O2SAT 100
== END 2022-12-28 13:47 | disposition home or self-care (01) ==
LOC: ER 09:29
DX: I11.0 Hypertensive heart disease with heart failure (principal); I50.9 Heart failure, unspecified; Z95.0 Presence of cardiac pacemaker; Z95.1 Presence of aortocoronary bypass graft; Z79.01 Long term (current) use of anticoagulants; Z79.899 Other long term (current) drug therapy
CPT/HCPCS: 36415; 80053; 81001; 84484; 85025

== ENCOUNTER → 2023-05-28 | Outpatient (CLI) | payer OTHER ==
[~2023-05-28] MED LIST changes: +CLON0.1T PO; +SILD100T PO; -SILD100T57 PO
== END | disposition home or self-care (01) ==
LOC: LAB 07:52
PROVIDERS: ATTEND Student in an Organized Health Care Education/Training Program
DX: R74.8 Abnormal levels of other serum enzymes (principal); I10 Essential (primary) hypertension; Z79.899 Other long term (current) drug therapy
CPT/HCPCS: 82306; 83970

== ENCOUNTER 2023-10-27 15:44 | Inpatient (IN) | payer OTHER ==
[~2023-10-27] VITALS: Ht 182.9 cm; Wt 119.0 kg
[2023-10-27 16:20] LABS: Basophils # (auto) 0 10 ^3/uL (0-0.2); Basophils % (auto) 0.3 % (0.0-2.0); Eosinophils # (auto) 0.3 10 ^3/uL (0-0.8); Eosinophils % (auto) 5.3 % (0.0-7.0); Hematocrit 36.7 % (41.0-53.0); Hemoglobin 12.2 g/dL (13.5-17.5); Lymphocytes # (auto) 2.3 10 ^3/uL (0.4-5.4); Lymphocytes % (auto) 37.5 % (10.0-50.0); Mean Corpuscular Hemoglobin 31.1 pg (28.0-32.0); Mean Corpuscular Hgb Conc. 33.1 g/dL (32.0-36.0); Mean Corpuscular Volume 93.8 fL (80.0-100.0); Monocytes # (auto) 0.7 10 ^3/uL (0-1.3); Monocytes % (auto) 10.7 % (0.0-12.0); Neutrophils # (auto) 2.8 10 ^3/uL (1.6-8.6); Neutrophils % (auto) 46.2 % (37.0-80.0); Nucleated Red Blood Cells % 0.2 %; Platelet Count (auto) 193 10^3/uL (140-450); Red Blood Cells 3.91 10^6/uL (4.5-5.90); White Blood Cell 6.1 10^3/uL (4.4-10.8)
[2023-10-27 16:38] LABS: Alanine Aminotransferase 30 U/L (7-40); Alkaline Phosphatase 212 U/L (46-116); Anion Gap 10 (5-15); Aspartate Aminotransferase 34 U/L (13-40); BUN/Creatinine Ratio 20.3 (10.0-20.0); Blood Urea Nitrogen 43 mg/dL (9-23); Calcium 10.2 mg/dL (8.7-10.4); Carbon Dioxide 19 mmol/L (20-30); Chloride 112 mmol/L (98-107); Glucose 80 mg/dL (74-106); Potassium 4.1 mmol/L (3.5-5.1); Sodium 141 mmol/L (136-145)
[2023-10-27 16:39] LABS: Bilirubin, Total 0.3 mg/dL (0.2-1.0); Total Protein 7.9 g/dL (5.7-8.2)
[2023-10-27 17:11] LABS: Urine Bacteria FEW /hpf (None Seen); Urine Blood Negative /uL (Negative); Urine Clarity Clear (Clear); Urine Color Light-Yellow (Yellow); Urine Hyaline Cast MOD /lpf (0 - 2); Urine Protein, UAD Negative (Negative); Urine Specific Gravity 1.015 (1.001-1.035); Urine Urobilinogen Normal (Negative); Urine WBC <1 /hpf (0 - 3); Urine pH 5.5 (5.0-9.0)
[2023-10-27] MEDS ORDERED: HYDROcodone-ACET 5/325MG TAB PO PRN (18:45)
[2023-10-27] MEDS ORDERED: ONDANSETRON HCL 4 MG/2 ML VIAL IV PRN (18:45)
[2023-10-27] MEDS ORDERED: hydrALAZINE HCL 20 MG/ML VL IV PRN (18:45)
[2023-10-27] MEDS ORDERED: DOCUSATE SOD 100 MG CAP PO PRN (18:45)
[2023-10-27] MEDS ORDERED: ACETAMINOPHEN 325 MG TAB PO PRN (18:45)
[2023-10-27] MEDS ORDERED: NITROGLYCERIN 0.4 MG SL TAB SL PRN (19:30)
[2023-10-27] MEDS ORDERED: MORPHINE SULFATE INJ 2 MG/ml SYRG IV PRN (19:30)
[2023-10-27 19:39] LABS: INR 1.73 (0.9-1.15); Partial Thromboplastin Time 41.9 SEC (24.5-34.5); Prothrombin Time 17.9 sec (9.3-11.8)
[2023-10-27] MEDS: SODIUM CHLORIDE 0.9% 1,000 ML IV ONE (21:15)
[2023-10-27 21:41] VITALS: PULSE 66; RESP 16; O2SAT 95
[2023-10-27] MEDS: SODIUM CHLORIDE 0.9% 1,000 ML IV SCH (22:14)
[2023-10-27] MEDS: METOPROLOL TARTRATE 25 MG TAB PO SCH (22:15)
[2023-10-27] MEDS: ATORVASTATIN 20 MG TAB PO SCH (22:15)
[2023-10-28] VITALS (7 sets, daily range): BP systolic 114–146; BP diastolic 62–72; PULSE 69–82; RESP 18–20; TEMP 97.1–97.6; O2SAT 95–100
[2023-10-28 07:45] LABS: Alanine Aminotransferase 24 U/L (7-40); Albumin 3.7 g/dL (3.2-4.8); Alkaline Phosphatase 188 U/L (46-116); Anion Gap 9 (5-15); Aspartate Aminotransferase 33 U/L (13-40); BUN/Creatinine Ratio 24.1 (10.0-20.0); Bilirubin, Total 0.3 mg/dL (0.2-1.0); Blood Urea Nitrogen 45 mg/dL (9-23); Calcium 9.6 mg/dL (8.7-10.4); Carbon Dioxide 19 mmol/L (20-30); Chloride 114 mmol/L (98-107); Glucose 84 mg/dL (74-106); Potassium 4.4 mmol/L (3.5-5.1); Sodium 142 mmol/L (136-145)
[2023-10-28 07:52] LABS: INR 1.83 (0.9-1.15); Prothrombin Time 18.9 sec (9.3-11.8)
[2023-10-28 07:53] LABS: Partial Thromboplastin Time 42.4 SEC (24.5-34.5)
[2023-10-28 07:56] LABS: Basophils # (auto) 0 10 ^3/uL (0-0.2); Basophils % (auto) 0.4 % (0.0-2.0); Eosinophils # (auto) 0.3 10 ^3/uL (0-0.8); Eosinophils % (auto) 5.1 % (0.0-7.0); Hematocrit 33.1 % (41.0-53.0); Hemoglobin 11.1 g/dL (13.5-17.5); Lymphocytes # (auto) 2.2 10 ^3/uL (0.4-5.4); Lymphocytes % (auto) 33.9 % (10.0-50.0); Mean Corpuscular Hemoglobin 31.8 pg (28.0-32.0); Mean Corpuscular Hgb Conc. 33.6 g/dL (32.0-36.0); Mean Corpuscular Volume 94.6 fL (80.0-100.0); Monocytes # (auto) 0.8 10 ^3/uL (0-1.3); Monocytes % (auto) 11.8 % (0.0-12.0); Neutrophils # (auto) 3.1 10 ^3/uL (1.6-8.6); Neutrophils % (auto) 48.8 % (37.0-80.0); Nucleated Red Blood Cells % 0.2 %; Platelet Count (auto) 163 10^3/uL (140-450); Red Cell Distribution Width 14.7 % (11.8-14.3); White Blood Cell 6.4 10^3/uL (4.4-10.8)
[2023-10-28 14:20] LABS: Sodium Urine 68 mmol/L (40-220)
[2023-10-28 14:27] LABS: Protein, Urine 29.4 mg/dL (0.0-11.9)
[2023-10-28 14:29] LABS: Amphetamine Screen, Urine Neg (NEGATIVE); Barbiturate Scree,Urine Neg (NEGATIVE); Benzodiazephine Screen, Urine Neg (NEGATIVE); Cannabinoid Screen, Urine Pos (NEGATIVE); Cocaine Screen, Urine Neg (NEGATIVE); Creatinine, Urine 69.48 mg/dL (30.0-125.0); Opiate Scree,Urine Neg (NEGATIVE); Phencyclidine Screen, Urine Neg (NEGATIVE)
== END 2023-10-28 14:55 | disposition home or self-care (01) | DRG 683 ==
LOC: ER 15:44 → TELE 19:28 → TELE-CENTR 21:01 → TELE 21:01 → TELE-CENTR 23:43
PROVIDERS: ADMIT Internal Medicine; ATTEND Internal Medicine
DX: N17.9 Acute kidney failure, unspecified (principal); D68.9 Coagulation defect, unspecified; I13.0 Hypertensive heart and chronic kidney disease with heart failure and stage 1 through stage 4 chronic kidney disease, or unspecified chronic kidney disease; E86.0 Dehydration; I50.9 Heart failure, unspecified; I25.10 Atherosclerotic heart disease of native coronary artery without angina pectoris; E78.5 Hyperlipidemia, unspecified; E11.22 Type 2 diabetes mellitus with diabetic chronic kidney disease; E66.9 Obesity, unspecified; M19.09 Primary osteoarthritis, other specified site; N18.30 Chronic kidney disease, stage 3 unspecified; Z95.1 Presence of aortocoronary bypass graft; Z79.4 Long term (current) use of insulin; Z95.810 Presence of automatic (implantable) cardiac defibrillator; Z68.35 Body mass index [BMI] 35.0-35.9, adult
CPT/HCPCS: 36415; 76775; 80053; 80307; 81001; 82306; 82570; 83036; 83880; 83935; 84156; 84300; 84443; 85025; 85610; 85730; 93005; G0378

== ENCOUNTER → 2023-12-01 | Outpatient (CLI) | payer OTHER ==
[~2023-12-01] MED LIST changes: -TRAM100T32 PO; -TRAM50TA2 PO
[2023-12-01 13:20] LABS: Chloride 110 mmol/L (98-107); Potassium 4.5 mmol/L (3.5-5.1); Sodium 141 mmol/L (136-145)
[2023-12-01 13:21] LABS: Anion Gap 6 (5-15); Calcium 10.7 mg/dL (8.7-10.4); Carbon Dioxide 25 mmol/L (20-31)
[2023-12-01 13:26] LABS: BUN/Creatinine Ratio 24.5 (10.0-20.0); Blood Urea Nitrogen 49 mg/dL (9-23); Glucose 97 mg/dL (74-106)
== END | disposition home or self-care (01) ==
LOC: LAB 12:11
PROVIDERS: ATTEND Internal Medicine
DX: N17.9 Acute kidney failure, unspecified (principal)
CPT/HCPCS: 36415; 80048

== ENCOUNTER → 2023-12-14 | Outpatient (CLI) | payer OTHER ==
[2023-12-14 07:51] LABS: Alanine Aminotransferase 16 U/L (7-40); Alkaline Phosphatase 213 U/L (46-116); Anion Gap 5 (5-15); BUN/Creatinine Ratio 22.6 (10.0-20.0); Blood Urea Nitrogen 42 mg/dL (9-23); Calcium 10.7 mg/dL (8.7-10.4); Carbon Dioxide 27 mmol/L (20-31); Chloride 110 mmol/L (98-107); Glucose 96 mg/dL (74-106); Potassium 4.5 mmol/L (3.5-5.1); Sodium 142 mmol/L (136-145)
[2023-12-14 07:52] LABS: Albumin 4.1 g/dL (3.2-4.8); Aspartate Aminotransferase 27 U/L (13-40); Bilirubin, Total 0.3 mg/dL (0.2-1.0)
== END | disposition home or self-care (01) ==
LOC: LAB 07:06
PROVIDERS: ATTEND Internal Medicine
DX: N17.9 Acute kidney failure, unspecified (principal); N18.9 Chronic kidney disease, unspecified
CPT/HCPCS: 36415; 80053

== ENCOUNTER → 2024-01-25 | Outpatient (CLI) | payer OTHER ==
[2024-01-25 14:06] LABS: Urine Bacteria None Seen /hpf (None Seen)
[2024-01-25 14:13] LABS: Basophils # (auto) 0.1 10 ^3/uL (0-0.2); Basophils % (auto) 0.8 % (0.0-2.0); Eosinophils # (auto) 0.2 10 ^3/uL (0-0.8); Eosinophils % (auto) 2.5 % (0.0-7.0); Hematocrit 33.1 % (41.0-53.0); Hemoglobin 10.8 g/dL (13.5-17.5); Lymphocytes # (auto) 1.7 10 ^3/uL (0.4-5.4); Lymphocytes % (auto) 19.7 % (10.0-50.0); Mean Corpuscular Hgb Conc. 32.8 g/dL (32.0-36.0); Mean Corpuscular Volume 94.8 fL (80.0-100.0); Monocytes # (auto) 0.9 10 ^3/uL (0-1.3); Monocytes % (auto) 10.3 % (0.0-12.0); Neutrophils # (auto) 5.9 10 ^3/uL (1.6-8.6); Neutrophils % (auto) 66.7 % (37.0-80.0); Platelet Count (auto) 246 10^3/uL (140-450); Red Blood Cells 3.49 10^6/uL (4.5-5.90); Red Cell Distribution Width 14.9 % (11.8-14.3); White Blood Cell 8.8 10^3/uL (4.4-10.8)
[2024-01-25 14:23] LABS: Urine Blood Negative /uL (Negative); Urine Clarity Clear (Clear); Urine Color Light-Yellow (Yellow); Urine Hyaline Cast MOD /lpf (0 - 2); Urine Protein, UAD Negative (Negative); Urine Specific Gravity 1.014 (1.001-1.035); Urine Urobilinogen Normal (Negative); Urine WBC <1 /hpf (0 - 3)
[2024-01-25 14:33] LABS: Potassium 5.1 mmol/L (3.5-5.1)
[2024-01-25 14:34] LABS: Calcium 11.1 mg/dL (8.7-10.4)
[2024-01-25 14:38] LABS: Protein, Urine 7.2 mg/dL (1-14)
[2024-01-25 14:39] LABS: BUN/Creatinine Ratio 28.3 (10.0-20.0)
[2024-01-25 14:41] LABS: Albumin 3.8 g/dL (3.2-4.8); Creatinine, Urine 166.2 mg/dL (30.0-125.0); Phosphorus 2.9 mg/dL (2.4-5.1); Urine Protein/Creatinine Ratio 0.04
[2024-01-25 17:42] LABS: Uric Acid 11.4 mg/dL (3.7-9.2)
== END | disposition home or self-care (01) ==
LOC: LAB 13:55
PROVIDERS: ATTEND Internal Medicine
DX: E11.21 Type 2 diabetes mellitus with diabetic nephropathy (principal); E21.3 Hyperparathyroidism, unspecified; N39.0 Urinary tract infection, site not specified; E11.22 Type 2 diabetes mellitus with diabetic chronic kidney disease; N18.30 Chronic kidney disease, stage 3 unspecified; M10.9 Gout, unspecified; D63.1 Anemia in chronic kidney disease; R80.9 Proteinuria, unspecified
CPT/HCPCS: 36415; 80069; 81001; 82043; 82570; 83970; 84156; 84550; 85025

== ENCOUNTER 2024-04-27 10:44 | Inpatient (IN) | payer OTHER ==
[~2024-04-27] VITALS: Ht 182.9 cm; Wt 116.8 kg
--- NOTE | 2024-04-27 11:50 | ED.PDOC ---
History of Present Illness HPI Comments 79-year-old male presents with a chief complaint of right hand swelling x 3 days. Patient initially went to urgent care, but was referred to the ER. Patient believes that at first it was his gout flaring up at his right wrist, but states that once that went away, his entire right hand became swollen. Patient denies any injuries or trauma prior to onset of symptoms. Patient reports that the hand is painful to the touch. Chief Complaint: Upper Extremity Time Seen by MD: 11:39 Primary Care Provider: DALJIT Sinclair Notes: Nurses Notes, Medications, Allergies Allergies: Coded Allergies: NO KNOWN ALLERGIES (Unverified , 03/24/10) Home Meds Active Scripts Clonidine Hydrochloride (Clonidine Hcl) 0.1 Mg Tab, 0.1 MG PO DAILY for 7 Days, #7 MG Prov:MOIZ NEAL MD 12/28/22 Reported Medications Cholecalciferol (VITAMIN D3) 2,000 Unit Tab, 1 TAB PO DAILY, #30 TAB 5 Refills 10/05/20 Sildenafil Citrate (Viagra) 100 Mg Tab, 100 MG PO PRN, TAB 10/05/20 Lisinopril (Lisinopril) 40 Mg Tab, 40 MG PO DAILY for 30 Days, MG 10/05/20 Furosemide (Lasix) 40 Mg Tab, 40 MG PO DAILY, TAB 10/05/20 Carvedilol (Carvedilol) 12.5 Mg Tab, 12.5 MG PO Q12HR, MG 01/12/14 Warfarin Sodium (Warfarin Sodium) 5 Mg Tab, 5 MG PO EOD, #1.5 MG every thursday, thursday, thursday and thursday01/12/14 Simvastatin (Zocor) 20 Mg Tab, HS 10/02/11 Spironolactone (Aldactone) 25 Mg Tab, 50 MG PO DAILY 10/02/11 Warfarin Sodium (Coumadin) 5 Mg Tab, EOD thursday, thursday and 10/02/11 Information Source: Patient, Relative (Child) Mode of Arrival: Wheelchair Severity: Moderate Timing: Days Duration: Since onset Prehospital treatment: None Location: Right hand swelling and pain Past Medical History PAST MEDICAL HISTORY: CAD, CHF, Gout, High Lipids, HTN Surgical History: Pacemaker Family History Family History: Unknown Social History Smoker: Non-Smoker Alcohol: Rarely Drugs: Denies Drug Use Lives In: Home Constitutional: denies: chills, diaphoresis, fatigue, fever, malaise, sweats, weakness, others EENTM: denies: blurred vision, double vision, ear bleeding, ear discharge, ear drainage, ear pain, ear ringing, eye pain, eye redness, hearing loss, mouth pain, mouth swelling, nasal discharge, nose bleeding, nose congestion, nose pain, photophobia, tearing, throat pain, throat swelling, voice changes, others Respiratory: denies: cough, hemoptysis, orthopnea, SOB at rest, shortness of breath, SOB with excertion, stridor, wheezing, others Cardiovascular: denies: chest pain, dizzy spells, diaphoresis, Dyspnea on exertion, edema, irregular heart beat, left arm pain, lightheadedness, palpitations, PND, syncope, others Gastrointestinal: denies: abdomen distended, abdominal pain, blood streaked bowels, constipated, diarrhea, dysphagia, difficulty swallowing, hematemesis, melena, nausea, poor appetite, poor fluid intake, rectal bleeding, rectal pain, vomiting, others Genitourinary: denies: burning, dysuria, flank pain, frequency, hematuria, incontinence, penile discharge, penile sore, pain, testicle pain, testicle swelling, urgency, others Neurological: denies: dizziness, fainting, headache, left sided numbness, left sided weakness, numbness, paresthesia, pre-existing deficit, right sided numbness, right sided weakness, seizure, speech problems, tingling, tremors, weakness, others Musculoskeletal: reports: joint swelling; denies: back pain, gout, joint pain, muscle pain, muscle stiffness, neck pain, others Integumetry: denies: bruises, change in color, change in hair/nails, dryness, laceration, lesions, lumps, rash, wounds, others Allergic/Immunocompromised: denies: Difficulty Healing, Frequent Infections, Hives, Itching, others Hematologic/Lymphatic: denies: anemia, blood clots, easy bleeding, easy bruising, swollen glands, others Endocrine: denies: excessive hunger, excessive sweating, excessive thirst, excessive urination, flushing, intolerance to cold, intolerance to heat, unexplained weight gain, unexplained weight loss, others Psychiatric: denies: anxiety, bipolar disorder, depression, hopeless, panic disorder, schizophrenia, sleepless, suicidal, others All Other Systems: Reviewed and Negative Physical Exam General Appearance: Moderate Distress HEENT: Normal ENT Inspection, Pharynx Normal, TMs Normal Neck: Full Range of Motion, Non-Tender, Normal, Normal Inspection Respiratory: Chest Non-Tender, Lungs Clear, No Accessory Muscle Use, No Respiratory Distress, Normal Breath Sounds Cardiovascular: No Edema, No JVD, No Murmur, No Gallop, Normal Peripheral Pulses, Regular Rate/Rhythm Breast Exam: Deferred Gastrointestinal: No Organomegaly, Non Tender, No Pulsatile Mass, Normal Bowel Sounds, Soft Genitalia: Deferred Pelvic: Deferred Rectal: Deferred Extremities: No calf tenderness, Normal capillary refill, No pedal edema, Other (Right hand swelling with tenderness) Musculoskeletal : Apperance: Normal Neurologic: Alert, geothermal operating engineer II-XII nml as Tested, No Motor Deficits, Normal Affect, Normal Mood, No Sensory Deficits Cerebellar Function: Normal Reflexes: Normal Skin: Dry, Normal Color, Warm Lymphatic: No Adenopathy Was a procedure done? Was a procedure done?: No Differential Dx Considerations may include: Fracture, strain, sepsis, gout X-Ray, Labs, Meds, VS Vital Signs Date Time Temp Pulse Resp B/P (MAP) Pulse Ox O2 Delivery O2 Flow Rate FiO2 04/27/24 13:00 98.0 78 15 114/52 (72) 95 98.0 04/27/24 12:59 78 15 114/52 04/27/24 11:45 98.8 74 6 116/78 (91) 96 Lab Test 04/27/24 12:02 Range/Units White Blood Count 13.9 H 4.4-10.8 10^3/uL Red Blood Count 3.33 L 4.5-5.90 10^6/uL Hemoglobin 10.0 L 13.5-17.5 g/dL Hematocrit 30.9 L 41.0-53.0 % Mean Corpuscular Volume 92.8 80.0-100.0 fL Mean Corpuscular Hemoglobin 29.9 28.0-32.0 pg Mean Corpuscular Hemoglobin Concent 32.3 32.0-36.0 g/dL Red Cell Distribution Width 15.3 H 11.8-14.3 % Platelet Count 269 140-450 10^3/uL Mean Platelet Volume 7.7 6.9-10.8 fL Neutrophils (%) (Auto) 83.5 H 37.0-80.0 % Lymphocytes (%) (Auto) 7.5 L 10.0-50.0 % Monocytes (%) (Auto) 8.1 0.0-12.0 % Eosinophils (%) (Auto) 0.4 0.0-7.0 % Basophils (%) (Auto) 0.5 0.0-2.0 % Neutrophils # (Auto) 11.6 H 1.6-8.6 10 ^3/uL Lymphocytes # (Auto) 1.0 0.4-5.4 10 ^3/uL Monocytes # (Auto) 1.1 0-1.3 10 ^3/uL Eosinophils # (Auto) 0.1 0-0.8 10 ^3/uL Basophils # (Auto) 0.1 0-0.2 10 ^3/uL Nucleated Red Blood Cells 0.1 % Erythrocyte Sedimentation Rate 104 H 0-20 mm/hr Sodium Level 138 136-145 mmol/L Potassium Level 4.3 3.5-5.1 mmol/L Chloride Level 105 98-107 mmol/L Carbon Dioxide Level 26 20-31 mmol/L Anion Gap 7 5-15 Blood Urea Nitrogen 42 H 9-23 mg/dL Creatinine 1.97 H 0.700-1.30 mg/dL Glomerular Filtration Rate Calc 34 >90 mL/min BUN/Creatinine Ratio 21.3 H 10.0-20.0 Serum Glucose 132 H 74-106 mg/dL Lactic Acid Level 1.3 0.4-2.0 mmol/L Uric Acid 6.6 3.7-9.2 mg/dL Calcium Level 11.2 H 8.7-10.4 mg/dL Current Medications Medications (Trade) Dose Ordered Sig/Mable Route Start Time Stop Time Status Last Admin Morphine Sulfate 4 mg ONCE ONCE IV 04/27/24 12:00 04/27/24 12:01 DC 04/27/24 12:59 Ondansetron HCl (Zofran) 2 mg ONCE ONCE IV 04/27/24 12:00 04/27/24 12:01 DC 04/27/24 12:57 IV Hep-Lock was established The patient was given morphine 4 mg IV push for the pain The patient was given Zofran 2 mg IV push for the nausea The CBC shows an elevated white blood cell count of 13.9 The rest of the CBC shows a hemoglobin 10 and hematocrit that has also decreased The BUN is 42 and the creatinine is 1.97 The patient was being admitted to the hospitalist The patient was being started on clindamycin IV piggyback Images Reviewed?: Images reviewed and evaluated by me Time of 1ST Reevaluation: 12:09 Reevaluation 1ST: Unchanged Patient Education/Counseling: Diagnosis, Treatment, Prognosis Family Education/Counseling: Diagnosis, Treatment, Prognosis Departure 1 Departure Time of Disposition: 13:12 Impression: Primary Impression: Cellulitis of right hand Additional Impressions: Elevated erythrocyte sedimentation rate Leukocytosis Qualified Codes: D72.829 - Elevated white blood cell count, unspecified Disposition: ADMITTED INPATIENT Admit to: Med Surg Condition: Fair Critical Care Note Critical Care Time?: No Stability Stability form required: Yes Unstable for transfer: ED Physician Assesment (Clinical assesment) Heart Score Heart Score: Heart Score Response (Comments) Value History N/A 0 EKG N/A 0 Age N/A 0 Risk Factors N/A 0 Troponin N/A 0 Total 0 I personally scribed for MAXI JOY MD ([email or web address]) on 04/27/24 at 11:50. Electronically submitted by Mahamed Briceño ([email or web address]). MAXI OJY MD Apr 27, 2024 11:50
[2024-04-27 12:15] LABS: Basophils # (auto) 0.1 10 ^3/uL (0-0.2); Basophils % (auto) 0.5 % (0.0-2.0); Eosinophils # (auto) 0.1 10 ^3/uL (0-0.8); Eosinophils % (auto) 0.4 % (0.0-7.0); Hematocrit 30.9 % (41.0-53.0); Lymphocytes % (auto) 7.5 % (10.0-50.0); Mean Corpuscular Hemoglobin 29.9 pg (28.0-32.0); Mean Corpuscular Hgb Conc. 32.3 g/dL (32.0-36.0); Mean Corpuscular Volume 92.8 fL (80.0-100.0); Monocytes # (auto) 1.1 10 ^3/uL (0-1.3); Monocytes % (auto) 8.1 % (0.0-12.0); Neutrophils # (auto) 11.6 10 ^3/uL (1.6-8.6); Neutrophils % (auto) 83.5 % (37.0-80.0); Nucleated Red Blood Cells % 0.1 %; Platelet Count (auto) 269 10^3/uL (140-450); Red Blood Cells 3.33 10^6/uL (4.5-5.90); Red Cell Distribution Width 15.3 % (11.8-14.3); White Blood Cell 13.9 10^3/uL (4.4-10.8)
[2024-04-27 12:35] LABS: Chloride 105 mmol/L (98-107); Potassium 4.3 mmol/L (3.5-5.1); Sodium 138 mmol/L (136-145)
[2024-04-27 12:36] LABS: Anion Gap 7 (5-15); Carbon Dioxide 26 mmol/L (20-31)
--- NOTE | 2024-04-27 12:39 | DVH ---
CLINICAL INDICATION: 79 years old, Male; pain. TECHNIQUE: Noncontrast CT of the right hand was performed. Sagittal and coronal reformatted images ar e provided. COMPARISON: None CT Dose: CTDI volume is 7.75 mGy. Dose-length product is 206.56 mGy*cm FINDINGS: Evaluation is significantly limited by flexion deformity and [id number]. There is a lucency in th e distal radius along the ulnar aspect there are multiple subchondral cysts throughout the carpal bon es and proximal metacarpal bones. No dislocation. There is 1st through 5th metacarpophalangeal joint space narrowing and there are subchondral cysts. Soft tissue swelling throughout the wrist. IMPRESSION: 1. Lucency in the distal radius, equivocal for fracture. Difficult to evaluate given the plane of im ages and [id number]. Dedicated radiographs of the wrist recommended. 2. Arthritis. 3. Diffuse soft tissue swelling. All CT scans at this medical facility are performed using dose modulation techniques as appropriate t o a performed exam including the following: Automated exposure control was utilized; adjustment of th e MA and/or KV according to patient size; and use of iterative reconstruction technique.
[2024-04-27 12:40] LABS: Uric Acid 6.6 mg/dL (3.7-9.2)
[2024-04-27 12:41] LABS: BUN/Creatinine Ratio 21.3 (10.0-20.0)
[2024-04-27 12:46] LABS: Blood Urea Nitrogen 42 mg/dL (9-23); Calcium 11.2 mg/dL (8.7-10.4); Glucose 132 mg/dL (74-106)
[2024-04-27 12:55] LABS: Erythrocyte Sedimentation Rate 104 mm/hr (0-20)
[2024-04-27] MEDS: ONDANSETRON HCL 4 MG/2 ML VIAL IV ONE (12:57)
[2024-04-27] MEDS: MORPHINE SULFATE 4 MG/ML SYR/VIAL IV ONE (12:59)
[2024-04-27 15:15] LABS: Urine Bacteria None Seen /hpf (None Seen)
[2024-04-27 15:31] LABS: Urine Blood Negative /uL (Negative); Urine Clarity Clear (Clear); Urine Color Yellow (Yellow); Urine Mucus FEW (None Seen); Urine Protein, UAD Negative (Negative); Urine Specific Gravity 1.012 (1.001-1.035); Urine Squamous Epithelial Cell FEW /hpf (<5); Urine Urobilinogen 2 mg/dL (Negative); Urine WBC 1 /HPF (0-3)
[2024-04-27] MEDS ORDERED: SIMV20TA20 PO ×2 (17:00→22:33)
[2024-04-27] MEDS ORDERED: ALLO100T PO (17:00)
--- NOTE | 2024-04-27 17:12 | DVHHP2 ---
History of Present Illness Reason for Visit: Right hand swelling History of Present Illness Patient was an 79-year-old male presenting to the emergency room with complaints of right hand swelling. Patient was states that his right hand has been swelling over the past 2-3 days. He denies having any trauma or possible insect bite to his hand. Initially, he thought that the swelling was due to gout, with the patient having no relief of his swelling. He denies having any fevers, chills, body aches. Significant history of the patient includes aortic valve replacement, gout, hypertension, and dyslipidemia. Cardiovascular: HTN, hyperipidemia Rheumatologic: Gout Past Surgical History: None (valve replacement) Family History: None Smoke: No ALCOHOL: none Lives: with Family Review of Systems Constitutional: No: Fever, Chills, Sweats, Weakness, Malaise, Other Eyes: No: Pain, Vision change, Conjunctivae inflammation, Eyelid inflammation, Other, Redness ENT: No: Ear pain, Ear discharge, Nose pain, Nose discharge, Nose congestion, Mouth pain, Mouth swelling, Throat pain, Throat swelling, Other Respiratory: No: Cough, Dry, Shortness of breath, SOB with excertion, Wheezing, Hemoptysis, Pleuritic Pain, Sputum, Wheezing, Other Cardiovascular: No: Chest Pain, Palpitations, Orthopnea, Paroxysmal Noc. Dyspnea, Edema, Lt Headedness, Other Gastrointestinal: No: Nausea, Vomiting, Abdominal Pain, Diarrhea, Constipation, Melena, Hematochezia, Other Genitourinary: No Dysuria, No Frequency, No Incontinence, No Hematuria, No Retention, No Other Musculoskeletal: hand pain Skin: No: Rash, Lesions, Jaundice, Bruising, Other Neurological: No: Weakness, Numbness, Incoordination, Change in speech, Confusion, Seizures, Other Allergies: Coded Allergies: NO KNOWN ALLERGIES (Unverified , 03/24/10) Medications Current Medications Medications Dose Ordered Sig/Mable Route Start Time Stop Time Status Last Admin Dose Admin Clindamycin Phosphate 50 ml @ 50 mls/hr Q8HR IV 04/27/24 22:00 UNV Ceftriaxone Sodium 50 ml @ 100 mls/hr DAILY@09 IV 04/28/24 09:00 UNV Warfarin Sodium RX PROTOCOL PER PHARMACY PO 04/27/24 17:00 UNV Morphine Sulfate 1 mg Q4HPRN PRN IV 04/27/24 17:15 UNV Acetaminophen/ Hydrocodone Bitart 1 tab Q6HPRN PRN PO 04/27/24 17:15 UNV Acetaminophen 500 mg Q8HP PRN PO 04/27/24 17:15 UNV Ondansetron HCl 4 mg Q6HP PRN IV 04/27/24 17:15 UNV Docusate Sodium 100 mg BID PRN PO 04/27/24 17:15 UNV Exam Vital Signs Vital Signs Date Time Temp Pulse Resp B/P (MAP) Pulse Ox O2 Delivery O2 Flow Rate FiO2 04/27/24 13:15 72 15 119/72 04/27/24 13:00 98.0 95 98.0 General Appearance: Alert, Oriented X3, Cooperative, mild distress HEENT: Atraumatic, PERRLA Respiratory: Clear to auscultation, Normal air movement Cardiovascular: Normal S1 Abdominal: Normal bowel sounds, Soft, No tenderness, No hepatospenomegaly, No masses Extremities: No clubbing, Other (Severe right hand swelling) Neuro: Normal speech Psych/Mental Status: Mental status NL, Mood NL Labs/Xrays Labs Test 04/27/24 14:55 04/27/24 12:02 Range/Units Urine Color Yellow Yellow Urine Clarity Clear Clear Urine pH 5.0 5.0-9.0 Urine Specific [place] 1.012 1.001-1.035 Urine Protein Negative Negative Urine Ketones Negative Negative Urine Blood Negative Negative /uL Urine Nitrite Negative Negative Urine Bilirubin Negative Negative Urine Urobilinogen 2 H Negative mg/dL Urine Leukocyte Esterase Negative Negative /uL Urine RBC <1 0 - 3 /hpf Urine Microscopic WBC 1 0-3 /HPF Urine Squamous Epithelial Cells Few <5 /hpf Urine Bacteria None seen None Seen /hpf Urine Mucus Few None Seen Urine Glucose Normal Normal mg/dL White Blood Count 13.9 H 4.4-10.8 10^3/uL Red Blood Count 3.33 L 4.5-5.90 10^6/uL Hemoglobin 10.0 L 13.5-17.5 g/dL Hematocrit 30.9 L 41.0-53.0 % Mean Corpuscular Volume 92.8 80.0-100.0 fL Mean Corpuscular Hemoglobin 29.9 28.0-32.0 pg Mean Corpuscular Hemoglobin Concent 32.3 32.0-36.0 g/dL Red Cell Distribution Width 15.3 H 11.8-14.3 % Platelet Count 269 140-450 10^3/uL Mean Platelet Volume 7.7 6.9-10.8 fL Neutrophils (%) (Auto) 83.5 H 37.0-80.0 % Lymphocytes (%) (Auto) 7.5 L 10.0-50.0 % Monocytes (%) (Auto) 8.1 0.0-12.0 % Eosinophils (%) (Auto) 0.4 0.0-7.0 % Basophils (%) (Auto) 0.5 0.0-2.0 % Neutrophils # (Auto) 11.6 H 1.6-8.6 10 ^3/uL Lymphocytes # (Auto) 1.0 0.4-5.4 10 ^3/uL Monocytes # (Auto) 1.1 0-1.3 10 ^3/uL Eosinophils # (Auto) 0.1 0-0.8 10 ^3/uL Basophils # (Auto) 0.1 0-0.2 10 ^3/uL Nucleated Red Blood Cells 0.1 % Erythrocyte Sedimentation Rate 104 H 0-20 mm/hr Sodium Level 138 136-145 mmol/L Potassium Level 4.3 3.5-5.1 mmol/L Chloride Level 105 98-107 mmol/L Carbon Dioxide Level 26 20-31 mmol/L Anion Gap 7 5-15 Blood Urea Nitrogen 42 H 9-23 mg/dL Creatinine 1.97 H 0.700-1.30 mg/dL Glomerular Filtration Rate Calc 34 >90 mL/min BUN/Creatinine Ratio 21.3 H 10.0-20.0 Serum Glucose 132 H 74-106 mg/dL Lactic Acid Level 1.3 0.4-2.0 mmol/L Uric Acid 6.6 3.7-9.2 mg/dL Calcium Level 11.2 H 8.7-10.4 mg/dL Assessment/Plan Assessment/Plan Impression: -right hand cellulitis -rule out right distal fracture -leukocytosis, probable sepsis -history of aortic valve replacement, with Coumadin therapy -gout -obesity -dyslipidemia -primary hypertension -chronic kidney disease stage IIIB Plan: -admit to Medical/Surgical unit -IV antibiotics: Rocephin, clindamycin -gentle IV hydration -patient was Coumadin per protocol -blood culture -ortho consultation -continue statin -repeat labs in a.m. Total time spent with patient discussing and formulating plan of care: 35 minutes. This medical document was created using an electronic medical record system with HW dictation system. Although this document has been carefully reviewed, there may still be some phonetic and typographical errors. These areas are purely typographical due to imperfections of the software programs, and do not reflect any compromise in the patient's medical care. Plan discussed with: Patient, Daughter, Other (RN) My Orders Orders - ARACELI RODRIGUEZ NP Procedure Category Date Status Time Admit ADMIT 04/27/24 Transmitted 16:56 Oxygen By Nasal RT 04/27/24 Transmitted Cannula 16:56 Clindamycin 300mg Iv PHA 04/27/24 Logged (Cleocin Iv) 22:00 Ceftriaxone 1gm/50ml PHA 04/28/24 Logged D5w (Rocephin) 09:00 Blood Culture MERY 04/27/24 Logged 16:56 Sod Chl 0.45% (Sodium PHA 04/27/24 Logged Chloride 0.45% Via 17:00 Basic Metabolic Panel LAB 04/28/24 Verified 04:00 Complete Blood Count LAB 04/28/24 Verified 04:00 Warfarin Per Rx PHA 04/27/24 Pending Protocol (Coumadin 17:00 PTPTT LAB 04/27/24 Logged 17:00 Morphine Sulfate PHA 04/27/24 Logged Injection 17:15 Hydrocodone-Acet PHA 04/27/24 Logged 5/325mg Tab (Guinda 17:15 Acetaminophen Tab Or PHA 04/27/24 Logged Cap (Tylenol Tablet 17:15 Ondansetron Hcl PHA 04/27/24 Transmitted (Zofran) 17:15 Docusate Sodium PHA 04/27/24 Transmitted Capsule (Colace 17:15 *Cons[address] Nichols CONS 04/27/24 Verified Erna 17:05 Date of Service: Apr 27, 2024 Billing Provider: ARACELI RODRIGUEZ NP Common Visit Codes: [id number] INP/OBS CARE (HIGH) ARACELI RODRIGUEZ NP Apr 27, 2024 17:12
[2024-04-27] MEDS ORDERED: ONDANSETRON HCL 4 MG/2 ML VIAL IV PRN (17:15)
[2024-04-27] MEDS ORDERED: MORPHINE SULFATE INJ 2 MG/ml SYRG IV PRN (17:15)
[2024-04-27] MEDS ORDERED: HYDROcodone-ACET 5/325MG TAB PO PRN (17:15)
[2024-04-27] MEDS ORDERED: DOCUSATE SOD 100 MG CAP PO PRN (17:15)
[2024-04-27] MEDS: CLINDAMYCIN 300MG IV 50 ML IV SCH (17:20)
[2024-04-27 18:04] LABS: INR 1.72 (0.9-1.15); Partial Thromboplastin Time 45.4 SEC (24.5-34.5); Prothrombin Time 17.3 sec (9.3-11.8)
[2024-04-27] MEDS: SOD CHL 0.45% 1,000 ML IV ONE (18:56)
[2024-04-27 19:30] VITALS: PULSE 70; RESP 12; O2SAT 92
[2024-04-27] MEDS ORDERED: CLINDAMYCIN 300MG IV 50 ML IV SCH (22:00)
[2024-04-27] MEDS ORDERED: WARF-66 PO (22:31)
[2024-04-27] MEDS ORDERED: SPIR25TA8 PO (22:32)
[2024-04-27] MEDS ORDERED: LISI-275 PO (22:33)
[2024-04-27] MEDS ORDERED: CARV12.544 PO (22:34)
[2024-04-27] MEDS ORDERED: FURO40TA4 PO (22:34)
[2024-04-28] VITALS (7 sets, daily range): BP systolic 93–114; BP diastolic 33–57; PULSE 65–71; RESP 18–20; TEMP 36.3; O2SAT 90–100
[2024-04-28] MEDS: ACETAMINOPHEN 500 MG TAB or CAP PO PRN (06:29)
[2024-04-28 07:11] LABS: Basophils # (auto) 0.1 10 ^3/uL (0-0.2); Basophils % (auto) 0.5 % (0.0-2.0); Eosinophils # (auto) 0.1 10 ^3/uL (0-0.8); Eosinophils % (auto) 1.3 % (0.0-7.0); Hematocrit 26.6 % (41.0-53.0); Hemoglobin 8.8 g/dL (13.5-17.5); Lymphocytes # (auto) 1.1 10 ^3/uL (0.4-5.4); Lymphocytes % (auto) 9.4 % (10.0-50.0); Mean Corpuscular Hemoglobin 31.5 pg (28.0-32.0); Mean Corpuscular Volume 95.4 fL (80.0-100.0); Monocytes # (auto) 1.1 10 ^3/uL (0-1.3); Monocytes % (auto) 9.4 % (0.0-12.0); Neutrophils # (auto) 9.5 10 ^3/uL (1.6-8.6); Neutrophils % (auto) 79.4 % (37.0-80.0); Platelet Count (auto) 229 10^3/uL (140-450); Red Blood Cells 2.79 10^6/uL (4.5-5.90); Red Cell Distribution Width 15.7 % (11.8-14.3); White Blood Cell 11.9 10^3/uL (4.4-10.8)
[2024-04-28 07:29] LABS: Anion Gap 8 (5-15); Carbon Dioxide 24 mmol/L (20-31); Chloride 105 mmol/L (98-107); INR 2.02 (0.9-1.15); Potassium 4.5 mmol/L (3.5-5.1); Sodium 137 mmol/L (136-145)
[2024-04-28 07:32] LABS: Calcium 10.6 mg/dL (8.7-10.4)
[2024-04-28 07:35] LABS: Blood Urea Nitrogen 49 mg/dL (9-23); Glucose 111 mg/dL (74-106)
[2024-04-28] MEDS: cefTRIAXone 1GM/50ML D5W 50 ML IV SCH (08:16)
[2024-04-28] MEDS: SPIRONOLACTONE 25 MG TAB PO SCH (10:00)
[2024-04-28] MEDS: FLORASTOR (S. BOULARDII) 250 MG CAP PO SCH (10:17)
[2024-04-28] MEDS ORDERED: COLC1CAP PO (11:39)
[2024-04-28] MEDS ORDERED: PRED20TA2 PO (11:39)
--- NOTE | 2024-04-28 11:44 | DVHDS2 ---
Discharge Summary Date of Admission Apr 27, 2024 at 16:56 Date of Discharge: Apr 28, 2024 Admitting Diagnosis Gout Flare Labs/Diagnostic Data: Laboratory Results Test 04/28/24 05:58 04/27/24 17:15 04/27/24 14:55 04/27/24 12:02 White Blood Count 11.9 10^3/uL (4.4-10.8) Red Blood Count 2.79 10^6/uL (4.5-5.90) Hemoglobin 8.8 g/dL (13.5-17.5) Hematocrit 26.6 % (41.0-53.0) Mean Corpuscular Volume 95.4 fL (80.0-100.0) Mean Corpuscular Hemoglobin 31.5 pg (28.0-32.0) Mean Corpuscular Hemoglobin Concent 33.0 g/dL (32.0-36.0) Red Cell Distribution Width 15.7 % (11.8-14.3) Platelet Count 229 10^3/uL (140-450) Mean Platelet Volume 8.1 fL (6.9-10.8) Neutrophils (%) (Auto) 79.4 % (37.0-80.0) Lymphocytes (%) (Auto) 9.4 % (10.0-50.0) Monocytes (%) (Auto) 9.4 % (0.0-12.0) Eosinophils (%) (Auto) 1.3 % (0.0-7.0) Basophils (%) (Auto) 0.5 % (0.0-2.0) Neutrophils # (Auto) 9.5 10 ^3/uL (1.6-8.6) Lymphocytes # (Auto) 1.1 10 ^3/uL (0.4-5.4) Monocytes # (Auto) 1.1 10 ^3/uL (0-1.3) Eosinophils # (Auto) 0.1 10 ^3/uL (0-0.8) Basophils # (Auto) 0.1 10 ^3/uL (0-0.2) Nucleated Red Blood Cells 0.0 % Prothrombin Time 20.0 sec (9.3-11.8) Prothrombin Time INR 2.02 (0.9-1.15) Sodium Level 137 mmol/L (136-145) Potassium Level 4.5 mmol/L (3.5-5.1) Chloride Level 105 mmol/L (98-107) Carbon Dioxide Level 24 mmol/L (20-31) Anion Gap 8 (5-15) Blood Urea Nitrogen 49 mg/dL (9-23) Creatinine 2.23 mg/dL (0.700-1.30) Glomerular Filtration Rate Calc 29 mL/min (>90) BUN/Creatinine Ratio 22.0 (10.0-20.0) Serum Glucose 111 mg/dL (74-106) Calcium Level 10.6 mg/dL (8.7-10.4) Activated Partial Thromboplast Time 45.4 SEC (24.5-34.5) Urine Color Yellow (Yellow) Urine Clarity Clear (Clear) Urine pH 5.0 (5.0-9.0) Urine Specific Arnett 1.012 (1.001-1.035) Urine Protein Negative (Negative) Urine Ketones Negative (Negative) Urine Blood Negative /uL (Negative) Urine Nitrite Negative (Negative) Urine Bilirubin Negative (Negative) Urine Urobilinogen 2 mg/dL (Negative) Urine Leukocyte Esterase Negative /uL (Negative) Urine RBC <1 /hpf (0 - 3) Urine Microscopic WBC 1 /HPF (0-3) Urine Squamous Epithelial Cells Few /hpf (<5) Urine Bacteria None seen /hpf (None Seen) Urine Mucus Few (None Seen) Urine Glucose Normal mg/dL (Normal) Erythrocyte Sedimentation Rate 104 mm/hr (0-20) Lactic Acid Level 1.3 mmol/L (0.4-2.0) Uric Acid 6.6 mg/dL (3.7-9.2) Other Laboratory Tests 04/28/24 05:58 Brief Hx & Hospital Course: Patient was an 79-year-old male presenting to the emergency room with complaints of right hand swelling. Patient is known to me from the past. Patient has had these episodes in the past due to Gout flare. Patient will be discharged home with Colchicine and Prednisone. If patient does not have any relief, advised to see Orthopedics [facility] at the [place] Operations or Procedures CLINICAL INDICATION: 79 years old, Male; pain. TECHNIQUE: Noncontrast CT of the right hand was performed. Sagittal and coronal reformatted images are provided. COMPARISON: None CT Dose: CTDI volume is 7.75 mGy. Dose-length product is 206.56 mGy*cm FINDINGS: Evaluation is significantly limited by flexion deformity and [id number]. There is a lucency in the distal radius along the ulnar aspect there are multiple subchondral cysts throughout the carpal bones and proximal metacarpal bones. No dislocation. There is 1st through 5th metacarpophalangeal joint space narrowing and there are subchondral cysts. Soft tissue swelling throughout the wrist. IMPRESSION: 1. Lucency in the distal radius, equivocal for fracture. Difficult to evaluate given the plane of images and [id number]. Dedicated radiographs of the wrist recommended. 2. Arthritis. 3. Diffuse soft tissue swelling. All CT scans at this medical facility are performed using dose modulation techniques as appropriate to a performed exam including the following: Automated exposure control was utilized; adjustment of the MA and/or KV according to patient size; and use of iterative reconstruction technique. Condition at Discharge: Poor Final Diagnosis/Problems List Gout Flare Right Cellulitis Ruled out CKD4 Discharge Disposition: Home Discharge Instruct/Medications Diet: Consistent carbohydrate Activity: Light activity Follow Up/Referral: [facility] Medications: [place] Discharge Statement: "Patient was advised to return to the ER or call 911 if any headaches, dizziness, shortness of breath, chest pain, abdominal pain, bleeding, fevers, or worsening of medical condition. Patient was counseled about treatment plan, medications, possible side effects, patientverbalized understanding. All questions were answered to the best of my ability. This discharge took greater then 30 minutes in planning, reviewing documentation, counseling the patient, and discussing with other team members." ASSESSMENT ASSESSMENT Assessment Date of Service: Apr 28, 2024 Billing Provider: MARCEL ORTIZ MD Common Visit Codes: 60541-FHJ/OBS DISCH DAY >30min MARCEL ORTIZ MD Apr 28, 2024 11:44
[2024-04-28] MEDS: SODIUM CHLORIDE 0.9% 1,000 ML IV SCH (11:45)
[2024-04-28] MEDS: COLCHICINE 0.6 MG CAP PO ONE (12:42)
[2024-04-28] MEDS ORDERED: WARFARIN SODIUM 5 MG TAB PO ONE (17:00)
[2024-04-29] MEDS ORDERED: COLCHICINE 0.6 MG CAP PO SCH (10:00)
== END 2024-04-28 15:45 | disposition home or self-care (01) | DRG 554 ==
LOC: ER 10:44 → OVERFLOW 16:56 → CENTRAL 22:05
PROVIDERS: ADMIT Internal Medicine; ATTEND Internal Medicine
DX: M10.041 Idiopathic gout, right hand (principal); I13.0 Hypertensive heart and chronic kidney disease with heart failure and stage 1 through stage 4 chronic kidney disease, or unspecified chronic kidney disease; N18.4 Chronic kidney disease, stage 4 (severe); E78.5 Hyperlipidemia, unspecified; I25.10 Atherosclerotic heart disease of native coronary artery without angina pectoris; I11.0 Hypertensive heart disease with heart failure; I50.9 Heart failure, unspecified; E66.9 Obesity, unspecified; Z68.34 Body mass index [BMI] 34.0-34.9, adult; Z79.899 Other long term (current) drug therapy; Z95.2 Presence of prosthetic heart valve
CPT/HCPCS: 36415; 73200; 80048; 81001; 83605; 84550; 85025; 85610; 85652; 85730; 87040; 96374; 96375; G0378; J2405; J3490

== ENCOUNTER → 2024-05-25 | Outpatient (CLI) | payer OTHER ==
[~2024-05-25] MED LIST changes: +ALLO100T PO; +COLC1CAP PO; +FURO40TA4 PO; +PRED20TA2 PO; +SIMV20TA20 PO; -SPIR25TA PO; +SPIR25TA8 PO
[2024-05-25 08:11] LABS: Urine Bacteria None Seen /hpf (None Seen)
[2024-05-25 08:24] LABS: Basophils # (auto) 0 10 ^3/uL (0-0.2); Basophils % (auto) 0.9 % (0.0-2.0); Eosinophils # (auto) 0.2 10 ^3/uL (0-0.8); Eosinophils % (auto) 3.8 % (0.0-7.0); Hemoglobin 10.5 g/dL (13.5-17.5); Lymphocytes # (auto) 1.5 10 ^3/uL (0.4-5.4); Lymphocytes % (auto) 28.5 % (10.0-50.0); Mean Corpuscular Hemoglobin 31.1 pg (28.0-32.0); Mean Corpuscular Hgb Conc. 32.7 g/dL (32.0-36.0); Mean Corpuscular Volume 95.2 fL (80.0-100.0); Monocytes # (auto) 0.5 10 ^3/uL (0-1.3); Monocytes % (auto) 8.5 % (0.0-12.0); Neutrophils # (auto) 3.1 10 ^3/uL (1.6-8.6); Neutrophils % (auto) 58.3 % (37.0-80.0); Nucleated Red Blood Cells % 0.2 %; Platelet Count (auto) 141 10^3/uL (140-450); Red Blood Cells 3.36 10^6/uL (4.5-5.90); Red Cell Distribution Width 17.3 % (11.8-14.3); White Blood Cell 5.3 10^3/uL (4.4-10.8)
[2024-05-25 08:32] LABS: Urine Blood Negative /uL (Negative); Urine Clarity Clear (Clear); Urine Color Light-Yellow (Yellow); Urine Hyaline Cast FEW /lpf (0 - 2); Urine Protein, UAD TRACE (Negative); Urine Specific Gravity 1.014 (1.001-1.035); Urine Squamous Epithelial Cell FEW /hpf (<5); Urine Urobilinogen Normal (Negative); Urine WBC < 1 /HPF (0-3); Urine pH 5.5 (5.0-9.0)
[2024-05-25 08:44] LABS: Alanine Aminotransferase 16 U/L (7-40); Albumin 4.1 g/dL (3.2-4.8); Anion Gap 7 (5-15); Aspartate Aminotransferase 24 U/L (13-40); BUN/Creatinine Ratio 20.2 (10.0-20.0); Bilirubin, Total 0.7 mg/dL (0.2-1.0); Carbon Dioxide 26 mmol/L (20-31); Chloride 106 mmol/L (98-107); GFR African American 53 mL/min; GFR Non-African American 43 mL/min; Glucose 95 mg/dL (74-106); Phosphorus 3.2 mg/dL (2.4-5.1); Potassium 4.3 mmol/L (3.5-5.1); Sodium 139 mmol/L (136-145); Total Protein 7.5 g/dL (5.7-8.2)
[2024-05-25 08:45] LABS: Alkaline Phosphatase 173 U/L (46-116); Blood Urea Nitrogen 33 mg/dL (9-23); Creatinine, Urine 101.23 mg/dL (30.0-125.0)
[2024-05-25 08:59] LABS: Uric Acid 8.6 mg/dL (3.7-9.2)
== END | disposition home or self-care (01) ==
LOC: LAB 08:01
PROVIDERS: ATTEND Internal Medicine
DX: E11.22 Type 2 diabetes mellitus with diabetic chronic kidney disease (principal); N18.30 Chronic kidney disease, stage 3 unspecified; E11.21 Type 2 diabetes mellitus with diabetic nephropathy; E21.3 Hyperparathyroidism, unspecified; E55.9 Vitamin D deficiency, unspecified; M10.9 Gout, unspecified; N39.0 Urinary tract infection, site not specified; R80.9 Proteinuria, unspecified; D63.1 Anemia in chronic kidney disease
CPT/HCPCS: 36415; 80053; 80069; 81001; 82043; 82570; 83970; 84550; 85025

== ENCOUNTER 2024-07-31 12:34 | Inpatient (IN) | payer OTHER ==
[~2024-07-31] VITALS: Ht 182.9 cm; Wt 117.2 kg
--- NOTE | 2024-07-31 13:10 | ED.PDOC ---
Musculoskeletal HPI Comments 79 y.o male with PMHx of CHF, CAD, HTN, prosthetic aortic valve and gout, presents to the ED for a chief complaint of lower extremity swelling with pain and erythema that started 2 days ago. Patient reports pain only presents at rest and is described as pins and needles sensation. [facility] and was given medication for the swelling but reports the pain sensation is still present. Patient denies any numbness sensation, weakness, SOB, chest pain, fever, or chills. Patient also states he takes warfarin. Chief Complaint: Extremity Swelling Time Seen by MD: 12:45 Primary Care Provider: RU SMITH Reviewed Notes: Nurses Notes, Medications, Allergies Allergies: Coded Allergies: NO KNOWN ALLERGIES (Unverified , 03/24/10) Home Meds Active Scripts Prednisone (Prednisone) 20 Mg Tab, 20 MG PO QAM for 3 Days, #3 MG Prov:MARCEL ORTIZ MD 04/28/24 Colchicine (Colchicine) 0.6 Mg Cap, 0.6 MG PO QAM for 10 Days, #10 CAP Prov:MARCEL ORTIZ MD 04/28/24 Clonidine Hydrochloride (Clonidine Hcl) 0.1 Mg Tab, 0.1 MG PO DAILY for 7 Days, #7 MG Prov:MOIZ NEAL MD 12/28/22 Reported Medications Carvedilol (Carvedilol) 12.5 Mg Tab, 1 TAB PO BID, #180 TAB 1 Refill 04/27/24 Furosemide (Furosemide) 40 Mg Tab, 1 TAB PO BID, #30 TAB 5 Refills 04/27/24 Spironolactone (Spironolactone) 25 Mg Tab, 1 TAB PO DAILY, #90 TAB 1 Refill 04/27/24 Warfarin Sodium (Warfarin Sodium) 5 Mg Tab, 1 TAB PO DAILY, #90 TAB 1 Refill 04/27/24 Simvastatin (Simvastatin) 20 Mg Tab, 1 TAB PO 04/27/24 Allopurinol (Allopurinol) 100 Mg Tab, 1 TAB PO DAILY 04/27/24 Cholecalciferol (VITAMIN D3) 2,000 Unit Tab, 1 TAB PO DAILY, #30 TAB 5 Refills 10/05/20 Sildenafil Citrate (Viagra) 100 Mg Tab, 100 MG PO PRN, TAB 10/05/20 Lisinopril (Lisinopril) 40 Mg Tab, 40 MG PO DAILY for 30 Days, MG 10/05/20 Furosemide (Lasix) 40 Mg Tab, 40 MG PO DAILY, TAB 10/05/20 Carvedilol (Carvedilol) 12.5 Mg Tab, 12.5 MG PO Q12HR, MG 01/12/14 Warfarin Sodium (Warfarin Sodium) 5 Mg Tab, 5 MG PO EOD, #1.5 MG every thursday, thursday, thursday and thursday01/12/14 Simvastatin (Zocor) 20 Mg Tab, HS 10/02/11 Warfarin Sodium (Coumadin) 5 Mg Tab, EOD thursday, thursday and 10/02/11 Information Source: Patient Mode of Arrival: Wheelchair Location: Bilateral Extremity Location: Leg Timing: Days Severity: Moderate Able to Move Extremity: Yes Bear Weight: Limited Pain: Moderate Mechanism: None Circumstances: Spontaneous Onset of Symptoms: Spontaneous Symptoms: Swelling, Pain, Erythema DVT Risk Factors: CHF Associated signs and symptoms: Swelling, Leg pain Past Medical History PAST MEDICAL HISTORY: CAD, CHF, Gout, High Lipids, HTN Surgical History (Other): Aortic valve replacement Family History Family History: Unknown Social History Smoker: Non-Smoker Alcohol: Rarely Drugs: Denies Drug Use Lives In: Home Constitutional: denies: chills, diaphoresis, fatigue, fever, malaise, sweats, weakness, others EENTM: denies: blurred vision, double vision, ear bleeding, ear discharge, ear drainage, ear pain, ear ringing, eye pain, eye redness, hearing loss, mouth pain, mouth swelling, nasal discharge, nose bleeding, nose congestion, nose pain, photophobia, tearing, throat pain, throat swelling, voice changes, others Respiratory: denies: cough, hemoptysis, orthopnea, SOB at rest, shortness of breath, SOB with excertion, stridor, wheezing, others Cardiovascular: denies: chest pain, dizzy spells, diaphoresis, Dyspnea on exertion, edema, irregular heart beat, left arm pain, lightheadedness, palp itations, PND, syncope, others Gastrointestinal: denies: abdomen distended, abdominal pain, blood streaked bowels, constipated, diarrhea, dysphagia, difficulty swallowing, hematemesis, melena, nausea, poor appetite, poor fluid intake, rectal bleeding, rectal pain, vomiting, others Genitourinary: denies: burning, dysuria, flank pain, frequency, hematuria, incontinence, penile discharge, penile sore, pain, testicle pain, testicle swelling, urgency, others Neurological: denies: dizziness, fainting, headache, left sided numbness, left sided weakness, numbness, paresthesia, pre-existing deficit, right sided numbness, right sided weakness, seizure, speech problems, tingling, tremors, weakness, others Musculoskeletal: reports: others (bilateral lower extremity swelling with pain ); denies: back pain, gout, joint pain, joint swelling, muscle pain, muscle stiffness, neck pain Integumetry: reports: others (Erythema to bilateral lower extremity ); denies: bruises, change in color, change in hair/nails, dryness, laceration, lesions, lumps, rash, wounds Allergic/Immunocompromised: denies: Difficulty Healing, Frequent Infections, Hives, Itching, others Hematologic/Lymphatic: denies: anemia, blood clots, easy bleeding, easy bruising, swollen glands, others Endocrine: denies: excessive hunger, excessive sweating, excessive thirst, excessive urination, flushing, intolerance to cold, intolerance to heat, unexplained weight gain, unexplained weight loss, others Psychiatric: denies: anxiety, bipolar disorder, depression, hopeless, panic disorder, schizophrenia, sleepless, suicidal, others All Other Systems: Reviewed and Negative Physical Exam General Appearance: No Apparent Distress, Obese HEENT: Other (Pupils and face symmetric. Moist mucous membranes.) Neck: Full Range of Motion, Normal Inspection Respiratory: Decreased Breath Sounds, No Accessory Muscle Use, No Respiratory Distress Cardiovascular: No JVD, Regular Rate/Rhythm Breast Exam: Deferred Gastrointestinal: Non Tender, Soft Genitalia: Deferred Pelvic: Deferred Rectal: Deferred Extremities: Leg edema, Normal range of motion, Pedal edema, Swelling, Tender, Other (Bilateral lower extremity erythema, warmth, edema and tenderness) Neurologic: Alert (Oriented x4), Normal Affect, Normal Mood Cerebellar Function: NOT DONE Reflexes: NOT DONE Skin: Dry, Warm, Other (Bilateral lower extremity erythema and edema) Lymphatic: NOT DONE Was a procedure done? Was a procedure done?: No Differential Diagnosis EXT Differential Diagnosis: Cellulitis, CHF, Deep Vein Thrombosis, Gout, Strain X-Ray, Labs, Meds, VS Vital Signs Date Time Temp Pulse Resp B/P (MAP) Pulse Ox O2 Delivery O2 Flow Rate FiO2 07/31/24 14:00 70 22 112/57 (75) 97 07/31/24 13:45 120/68 07/31/24 12:53 97.9 97 18 141/63 (89) 70 97.9 Lab Test 07/31/24 13:36 Range/Units White Blood Count 6.6 4.4-10.8 10^3/uL Red Blood Count 3.53 L 4.5-5.90 10^6/uL Hemoglobin 10.7 L 13.5-17.5 g/dL Hematocrit 33.2 L 41.0-53.0 % Mean Corpuscular Volume 94.2 80.0-100.0 fL Mean Corpuscular Hemoglobin 30.4 28.0-32.0 pg Mean Corpuscular Hemoglobin Concent 32.2 32.0-36.0 g/dL Red Cell Distribution Width 16.7 H 11.8-14.3 % Platelet Count 219 140-450 10^3/uL Mean Platelet Volume 7.7 6.9-10.8 fL Neutrophils (%) (Auto) 72.1 37.0-80.0 % Lymphocytes (%) (Auto) 16.8 10.0-50.0 % Monocytes (%) (Auto) 7.0 0.0-12.0 % Eosinophils (%) (Auto) 3.2 0.0-7.0 % Basophils (%) (Auto) 0.9 0.0-2.0 % Neutrophils # (Auto) 4.8 1.6-8.6 10 ^3/uL Lymphocytes # (Auto) 1.1 0.4-5.4 10 ^3/uL Monocytes # (Auto) 0.5 0-1.3 10 ^3/uL Eosinophils # (Auto) 0.2 0-0.8 10 ^3/uL Basophils # (Auto) 0.1 0-0.2 10 ^3/uL Nucleated Red Blood Cells 0.1 % Sodium Level 144 136-145 mmol/L Potassium Level 4.4 3.5-5.1 mmol/L Chloride Level 109 H 98-107 mmol/L Carbon Dioxide Level 27 20-31 mmol/L Anion Gap 8 5-15 Blood Urea Nitrogen 34 H 9-23 mg/dL Creatinine 1.86 H 0.700-1.30 mg/dL Glomerular Filtration Rate Calc 36 >90 mL/min BUN/Creatinine Ratio 18.3 10.0-20.0 Serum Glucose 89 74-106 mg/dL Lactic Acid Level 1.0 0.4-2.0 mmol/L Calcium Level 11.2 H 8.7-10.4 mg/dL Total Bilirubin 0.5 0.2-1.0 mg/dL Aspartate Amino Transferase (AST) 21 13-40 U/L Alanine Aminotransferase (ALT) 12 7-40 U/L Alkaline Phosphatase 190 H 46-116 U/L Troponin I High Sensitivity 36 </=54 ng/L B-Type Natriuretic Peptide 190.66 0-100 pg/mL Total Protein 8.0 5.7-8.2 g/dL Albumin 4.1 3.2-4.8 g/dL Current Medications Medications (Trade) Dose Ordered Sig/Mable Route Start Time Stop Time Status Last Admin Furosemide (Lasix Injection) 40 mg ONCE ONCE IV 07/31/24 13:15 07/31/24 13:16 DC 07/31/24 13:45 Piperacillin Sod/ Tazobactam Sod 100 ml @ 100 mls/hr ONCE ONCE IV 07/31/24 13:15 07/31/24 14:14 DC 07/31/24 13:45 PROCEDURE(s): CXRP - CHEST PORTABLE REASON: ble edema h/o chf ORDER NUMBER(s): [id number], ACCESSION NUMBER(s): [id number] CHEST PORTABLE, HISTORY: ble edema h/o chf COMPARISON: None None TECHNICAL DATA: 1 view of the chest was obtained. FINDINGS: Lines and tubes: Cardiac pacer is seen. Cardiomediastinal silhouette: Enlarged Pulmonary vasculature: prominent Lung expansion: normal Lung airspace: normal Lung interstitium: normal Pleura: normal Pneumothorax: no Bones: Unremarkable Other: no IMPRESSION: Cardiomegaly with pulmonary vascular congestion. EDURE(s): BLDVT - BiLat Lower DVT REASON: ble edema ORDER NUMBER(s): [id number], ACCESSION NUMBER(s): [id number] Bilateral lower extremity venous duplex Clinical History: ble edema Comparison: None Technique: Duplex Doppler evaluation of the deep venous systems of both lower extremities from the common femoral veins to the popliteal veins including color Doppler and spectral/pulsed waveform analysis was performed. Findings: RIGHT SIDE: The common femoral vein demonstrates appropriate compressibility and waveform variability. There is compressibility/patency of the great saphenous vein at the proximal thigh. The femoral vein demonstrates appropriate compressibility and waveform variability. The deep femoral vein demonstrates appropriate compressibility and waveform variability. The popliteal vein demonstrates appropriate compressibility and waveform variability. There is normal compressibility at the tibioperoneal trunk. LEFT SIDE: The common femoral vein demonstrates appropriate compressibility and waveform variability. There is compressibility/patency of the great saphenous vein at the proximal thigh. The femoral vein demonstrates appropriate compressibility and waveform variability. The deep femoral vein demonstrates appropriate compressibility and waveform variability. The popliteal vein demonstrates appropriate compressibility and waveform variability. There is normal compressibility at the tibioperoneal trunk. Impression: No right or left femoropopliteal venous thrombosis. X-Ray, Labs, Meds, VS Comment 79 y.o male with PMHx of CHF, CAD, HTN, prosthetic aortic valve and gout complaining of bilateral lower extremity pain, redness and swelling Vitals remarkable for oxygen saturation 90% on room air and BP 141/63 Exam remarkable for diminished breath sounds and bilateral leg erythema, edema and tenderness Rhythm strip independently interpreted by me: Chest x-ray IMPRESSION: Cardiomegaly with pulmonary vascular congestion. Bilateral lower extremity ultrasound: Impression: No right or left femoropopliteal venous thrombosis. CBC unremarkable, CMP remarkable for BUN 34, creatinine 1.86, BNP 190.66, troponin negative, lactate normal Patient treated with the following in the ED: Lasix 40 mg IV, Zosyn 4.5 g IV On re-evaluation, patient's oxygen saturation is normal on nasal cannula and he is not in any pain or distress. Plan is to admit the patient for diuresis and IV antibiotics Time of 1ST Reevaluation: 14:00 Reevaluation 1ST: Unchanged Patient Education/Counseling: Diagnosis, Treatment, Prognosis Family Education/Counseling: No Family Present Sepsis Sepsis Reasesment Focused Exam Orders: Laboratory Tests 07/31/24 13:36: Lactic Acid Level 1.0 Departure 1 Departure Time of Disposition: 14:09 Impression: Primary Impression: Acute hypoxic respiratory failure Additional Impressions: CHF exacerbation Bilateral lower leg cellulitis Disposition: ADMITTED INPATIENT Admit to: Tele Condition: Guarded Critical Care Note Critical Care Time?: No Stability Stability form required: No Heart Score Heart Score: Heart Score Response (Comments) Value History N/A 0 EKG N/A 0 Age N/A 0 Risk Factors N/A 0 Troponin N/A 0 Total 0 I personally scribed for BARRON COLE MD ([email or web address]) on 07/31/24 at 13:10. Electronically submitted by Adina Montague ([facility]). BARRON COLE MD Jul 31, 2024 13:10
[2024-07-31 13:30] VITALS: PULSE 70; RESP 15; O2SAT 97
[2024-07-31] MEDS: FUROSEMIDE 40 MG/4 ML VIAL IV ONE (13:45)
[2024-07-31] MEDS: PIPERACILLIN-TAZO 4.5GM 100 ML IV ONE (13:45)
--- NOTE | 2024-07-31 13:47 | DVH ---
XY CHEST PORTABLE, HISTORY: ble edema h/o chf COMPARISON: None None TECHNICAL DATA: 1 view of the chest was obtained. FINDINGS: Lines and tubes: Cardiac pacer is seen. Cardiomediastinal silhouette: Enlarged Pulmonary vasculature: prominent Lung expansion: normal Lung airspace: normal Lung interstitium: normal Pleura: normal Pneumothorax: no Bones: Unremarkable Other: no IMPRESSION: Cardiomegaly with pulmonary vascular congestion.
--- NOTE | 2024-07-31 14:02 | DVH ---
Bilateral lower extremity venous duplex Clinical History: ble edema Comparison: None Technique: Duplex Doppler evaluation of the deep venous systems of both lower extremities from the common femora l veins to the popliteal veins including color Doppler and spectral/pulsed waveform analysis was perf ormed. Findings: RIGHT SIDE: The common femoral vein demonstrates appropriate compressibility and waveform variability. There is compressibility/patency of the great saphenous vein at the proximal thigh. The femoral vein demonstrates appropriate compressibility and waveform variability. The deep femoral vein demonstrates appropriate compressibility and waveform variability. The popliteal vein demonstrates appropriate compressibility and waveform variability. There is normal compressibility at the tibioperoneal trunk. LEFT SIDE: The common femoral vein demonstrates appropriate compressibility and waveform variability. There is compressibility/patency of the great saphenous vein at the proximal thigh. The femoral vein demonstrates appropriate compressibility and waveform variability. The deep femoral vein demonstrates appropriate compressibility and waveform variability. The popliteal vein demonstrates appropriate compressibility and waveform variability. There is normal compressibility at the tibioperoneal trunk. Impression: No right or left femoropopliteal venous thrombosis.
[2024-07-31 14:04] LABS: Basophils # (auto) 0.1 10 ^3/uL (0-0.2); Basophils % (auto) 0.9 % (0.0-2.0); Eosinophils # (auto) 0.2 10 ^3/uL (0-0.8); Eosinophils % (auto) 3.2 % (0.0-7.0); Hematocrit 33.2 % (41.0-53.0); Hemoglobin 10.7 g/dL (13.5-17.5); Lymphocytes # (auto) 1.1 10 ^3/uL (0.4-5.4); Lymphocytes % (auto) 16.8 % (10.0-50.0); Mean Corpuscular Hemoglobin 30.4 pg (28.0-32.0); Mean Corpuscular Hgb Conc. 32.2 g/dL (32.0-36.0); Mean Corpuscular Volume 94.2 fL (80.0-100.0); Monocytes # (auto) 0.5 10 ^3/uL (0-1.3); Neutrophils # (auto) 4.8 10 ^3/uL (1.6-8.6); Neutrophils % (auto) 72.1 % (37.0-80.0); Nucleated Red Blood Cells % 0.1 %; Platelet Count (auto) 219 10^3/uL (140-450); Red Blood Cells 3.53 10^6/uL (4.5-5.90); Red Cell Distribution Width 16.7 % (11.8-14.3); White Blood Cell 6.6 10^3/uL (4.4-10.8)
[2024-07-31 14:19] LABS: Alanine Aminotransferase 12 U/L (7-40); Albumin 4.1 g/dL (3.2-4.8); Anion Gap 8 (5-15); Aspartate Aminotransferase 21 U/L (13-40); BUN/Creatinine Ratio 18.3 (10.0-20.0); Bilirubin, Total 0.5 mg/dL (0.2-1.0); Carbon Dioxide 27 mmol/L (20-31); Glucose 89 mg/dL (74-106); Potassium 4.4 mmol/L (3.5-5.1); Sodium 144 mmol/L (136-145)
[2024-07-31 14:21] LABS: Alkaline Phosphatase 190 U/L (46-116); Blood Urea Nitrogen 34 mg/dL (9-23); Calcium 11.2 mg/dL (8.7-10.4); Chloride 109 mmol/L (98-107)
[2024-07-31 14:46] LABS: Urine Bacteria None Seen /hpf (None Seen)
[2024-07-31 14:59] LABS: Urine Blood Negative /uL (Negative); Urine Clarity Clear (Clear); Urine Color Light-Yellow (Yellow); Urine Hyaline Cast FEW /lpf (0 - 2); Urine Protein, UAD Negative (Negative); Urine Squamous Epithelial Cell FEW /hpf (<5); Urine Urobilinogen Normal (Negative); Urine WBC < 1 /HPF (0-3); Urine pH 5.5 (5.0-9.0)
[2024-07-31 21:07] VITALS: PULSE 70; RESP 19; O2SAT 100
[2024-07-31] MEDS ORDERED: NITROGLYCERIN 0.4 MG SL TAB SL PRN (21:45)
[2024-07-31] MEDS ORDERED: MORPHINE SULFATE 4 MG/ML SYR/VIAL IV PRN (21:45)
[2024-07-31] MEDS: CARVEDILOL 3.125 MG TAB PO SCH (22:09)
[2024-07-31 22:43] LABS: INR 2.61 (0.9-1.15); Partial Thromboplastin Time 44.4 SEC (24.5-34.5); Prothrombin Time 25.2 sec (9.3-11.8)
--- NOTE | 2024-07-31 23:01 | DVHHPRES ---
History of Present Illness Resident Creating Document: LIDA FERNANDEZ RESIDENT History of Present Illness Patient is a 79-year-old male with a past medical history of congestive heart failure, ? Coronary artery disease, hypertension, prosthetic aortic valve, gout presented to the ED with a chief complaint of bilateral lower extremity swelling since the last 2 days. Patient denied any shortness of breath, chest pain, cough expectoration. Patient is on warfarin 7.5 mg on Thursday and 5 mg rest of the days for a prosthetic aortic valve which was placed in 1995 with a open heart surgery. Patient does not remember the when the last time he saw a wet process miller. From the record his last echo in 2020 shows LVEF 30% with a global hypokinesis, moderate tricuspid insufficiency, RVSP of 47mmhg. Past medical history: congestive heart failure, ? Coronary artery disease, hypertension, prosthetic aortic valve, gout Past surgical history: Open heart surgery for valve replacement Social history: Patient lives with the family and denies smoking, alcohol, drug use Home medications: Carvedilol 12.5 mg b.i.d., Lasix 40 mg daily, spironolactone 25 mg daily, lisinopril 40 mg daily, warfarin 7.5 mg on Thursday and 5 mg rest of the days Review of Systems Review of Systems Seen and examined with the bedside Reports the leg swelling has decreased since been in the hospital and they gave him Lasix Patient denies chest pain, shortness of breath, palpitations, fever, chills, cough or phlegm Allergies: Coded Allergies: NO KNOWN ALLERGIES (Unverified , 03/24/10) Medications Current Medications Medications Dose Ordered Sig/Mable Route Start Time Stop Time Status Last Admin Dose Admin Nitroglycerin 0.4 mg Q5MINP PRN SL 07/31/24 21:45 Morphine Sulfate 2 mg Q30M PRN IV 07/31/24 21:45 Carvedilol 6.25 mg Q12HR PO 07/31/24 22:00 07/31/24 22:09 6.25 MG Spironolactone 25 mg DAILY PO 08/01/24 10:00 Furosemide 40 mg DAILY IV 08/01/24 10:00 Lisinopril 20 mg DAILY PO 08/01/24 10:00 Warfarin Sodium 5 mg DAILY@17 PO 08/02/24 17:00 UNV Exam Vital Signs Vital Signs Date Time Temp Pulse Resp B/P (MAP) Pulse Ox O2 Delivery O2 Flow Rate FiO2 07/31/24 22:09 77 128/56 07/31/24 21:07 19 100 Room Air* 0 21 07/31/24 20:11 97.5 97.5 Exam Gen - no pallor, no icterus, no cyanosis, no clubbing, no LAD, no edema . Skin - Patients skin is warm and dry. HEENT - normocephalic, atraumatic, moist mucous membranes. Neck - full ROM, no LAD, no JVD Pulmonary - B/L equal breath sounds, no crackles, no wheezing, no stridor. cardiovascular - regular S1,S2 heard, mild S3, no murmurs heard. peripheral p ulses normal radial 2+, pedal 2+. capillary refill normal <2 secs. GI - soft, nontender abdomen. no hepatospleenomegaly. Bowel sounds normoactive Neurological - Patient is A/O X 3 . Bilateral upper extremity strength 4/5, bilateral lower extremity strength 4/5, no facial droop, normal speech, no tremor, no sensory deficiets. Labs/Xrays Labs Test 07/31/24 22:03 07/31/24 16:41 07/31/24 14:22 07/31/24 13:36 Range/Units Troponin I High Sensitivity 38 </=54 ng/L Urine Color Light-yellow Yellow Urine Clarity Clear Clear Urine pH 5.5 5.0-9.0 Urine Specific Rohwer 1.010 1.001-1.035 Urine Protein Negative Negative Urine Ketones Negative Negative Urine Blood Negative Negative /uL Urine Nitrite Negative Negative Urine Bilirubin Negative Negative Urine Urobilinogen Normal Negative mg/dL Urine Leukocyte Esterase Negative Negative /uL Urine RBC 1 0 - 3 /hpf Urine Microscopic WBC < 1 0-3 /HPF Urine Squamous Epithelial Cells Few <5 /hpf Urine Bacteria None seen None Seen /hpf Urine Hyaline Casts Few 0 - 2 /lpf Urine Glucose Normal Normal mg/dL White Blood Count 6.6 4.4-10.8 10^3/uL Red Blood Count 3.53 L 4.5-5.90 10^6/uL Hemoglobin 10.7 L 13.5-17.5 g/dL Hematocrit 33.2 L 41.0-53.0 % Mean Corpuscular Volume 94.2 80.0-100.0 fL Mean Corpuscular Hemoglobin 30.4 28.0-32.0 pg Mean Corpuscular Hemoglobin Concent 32.2 32.0-36.0 g/dL Red Cell Distribution Width 16.7 H 11.8-14.3 % Platelet Count 219 140-450 10^3/uL Mean Platelet Volume 7.7 6.9-10.8 fL Neutrophils (%) (Auto) 72.1 37.0-80.0 % Lymphocytes (%) (Auto) 16.8 10.0-50.0 % Monocytes (%) (Auto) 7.0 0.0-12.0 % Eosinophils (%) (Auto) 3.2 0.0-7.0 % Basophils (%) (Auto) 0.9 0.0-2.0 % Neutrophils # (Auto) 4.8 1.6-8.6 10 ^3/uL Lymphocytes # (Auto) 1.1 0.4-5.4 10 ^3/uL Monocytes # (Auto) 0.5 0-1.3 10 ^3/uL Eosinophils # (Auto) 0.2 0-0.8 10 ^3/uL Basophils # (Auto) 0.1 0-0.2 10 ^3/uL Nucleated Red Blood Cells 0.1 % Sodium Level 144 136-145 mmol/L Potassium Level 4.4 3.5-5.1 mmol/L Chloride Level 109 H 98-107 mmol/L Carbon Dioxide Level 27 20-31 mmol/L Anion Gap 8 5-15 Blood Urea Nitrogen 34 H 9-23 mg/dL Creatinine 1.86 H 0.700-1.30 mg/dL Glomerular Filtration Rate Calc 36 >90 mL/min BUN/Creatinine Ratio 18.3 10.0-20.0 Serum Glucose 89 74-106 mg/dL Lactic Acid Level 1.0 0.4-2.0 mmol/L Calcium Level 11.2 H 8.7-10.4 mg/dL Total Bilirubin 0.5 0.2-1.0 mg/dL Aspartate Amino Transferase (AST) 21 13-40 U/L Alanine Aminotransferase (ALT) 12 7-40 U/L Alkaline Phosphatase 190 H 46-116 U/L B-Type Natriuretic Peptide 190.66 0-100 pg/mL Total Protein 8.0 5.7-8.2 g/dL Albumin 4.1 3.2-4.8 g/dL Assessment/Plan Assessment/Plan Bilateral lower extremity swelling likely due to CHF exacerbation History of heart failure with reduced ejection fraction H/o prosthetic aortic valve History of AICD placement - new echo pending - chest x-ray shows pulmonary vascular congestion with mild pulmonary edema - bilateral lower extremity venous Doppler showed no evidence of DVT - patient is started on a low-dose of carvedilol at 6.25, lisinopril 20 - spironolactone 25 - Lasix 40 mg IV - warfarin 7.5 mg on Thursday, 5 mg daily on other days, PT PTT pending 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 Full code Plan discussed with Dr. Ortiz Plan discussed with: Patient, Daughter My Orders Orders - LIDA FERNANDEZ RESIDENT Procedure Category Date Status Time Admit ADMIT 07/31/24 Transmitted 21:31 Nitroglycerin PHA 07/31/24 In Process Sublingual (Ntrostat 21:45 Oxygen By Nasal RT 07/31/24 Transmitted Cannula 21:31 Stat Ekg For Chest [facility] 07/31/24 In Process Pain 21:31 Notify Of Changes [place] 07/31/24 In Process From Base 21:31 Audio Visual Design Engineer For [facility] 07/31/24 In Process 24 Hours 21:31 Emergency Dysrhythmia [place] 07/31/24 In Process Protocol 21:31 Rhythm Strips Once [facility] 07/31/24 In Process Every Shift 21:31 Echo 2d Mode Cardiac US 07/31/24 Logged DOP 21:31 Rapid Influenza A&B LAB 07/31/24 Logged 21:31 Covid19 Antigen [facility] 07/31/24 Logged Strict I & O [place] 07/31/24 In Process 21:31 Cardiac DIET 08/01/24 Transmitted Diet-2gna,Lofat,Lochol Breakfast Carvedilol Tablet PHA 07/31/24 In Process (Coreg Tablet) 22:00 Spironolactone PHA 08/01/24 In Process (Aldactone) 10:00 Furosemide Injection PHA 08/01/24 In Process (Lasix Injection) 10:00 Lisinopril Tablet PHA 08/01/24 In Process (Zestril Tablet) 10:00 Warfarin Sodium PHA 08/01/24 In Process (Coumadin) 17:00 PTPTT LAB 07/31/24 In Process 21:31 Complete Blood Count LAB 08/01/24 Verified 04:00 Comprehensive LAB 08/01/24 Verified Metabolic Panel 04:00 Warfarin Sodium PHA 08/02/24 Pending (Coumadin) 17:00 Morphine Sulfate PHA 07/31/24 In Process Injection 21:45 Date of Service: Jul 31, 2024 Billing Provider: MARCEL ORTIZ MD Common Visit Codes: 73099-GQVSAGM INP/OBS CARE (HIGH) Secondary Visit Codes: [id number] CARE PLAN 30 MINUTES LIDA FERNANDEZ RESIDENT Jul 31, 2024 23:01
[2024-07-31 23:27] LABS: Sodium Urine 109 mmol/L (40-220)
[2024-07-31 23:29] LABS: Rapid Influenza A Negative (Negative); Rapid Influenza B Negative (Negative)
[2024-07-31 23:30] LABS: COVID19 ANTIGEN SOFIA FIA NEGATIVE (NEGATIVE)
[2024-07-31 23:35] LABS: Creatinine, Urine 51.56 mg/dL (30.0-125.0); Urine Protein/Creatinine Ratio 0.12
[2024-07-31 23:43] LABS: Protein, Urine < 6.0 mg/dL (1-14)
[2024-08-01] VITALS (8 sets, daily range): BP systolic 117–128; BP diastolic 63–75; PULSE 51–70; RESP 16–18; TEMP 97.6–98.2; O2SAT 95–100
--- NOTE | 2024-08-01 00:05 | DVH ---
RENAL ULTRASOUND REASON FOR EXAM: CKD COMPARISON: Images from prior studies were not available for comparison. TECHNIQUE: Real-time sector scans in multiple planes were obtained over the kidneys, ureters and shane dder. FINDINGS: Examination was difficult due to patient body habitus. Both kidneys appear mildly echogenic. The right kidney measures 10.2 cm. The left kidney measures 10 .7 cm. No solid renal mass is identified. There are a few small anechoic cysts within the right aleksandra l cortex, the largest of which measures 2.4 x 2.3 x 2.1 cm at the superior pole of the right kidney. No renal calculus is identified within the limitations of this study. There is no hydronephrosis. Th e urinary bladder is within normal limits. The prostate measures 3.9 x 3.4 x 3.9 cm. IMPRESSION: Mildly echogenic renal parenchyma bilaterally suggestive of medical renal disease. Small right renal cysts, the largest of which measures 2.4 cm at the superior pole of the right kidne y.
[2024-08-01] MEDS: PANTOPRAZOLE 40 MG TAB PO SCH (05:09)
[2024-08-01 06:54] LABS: Basophils # (auto) 0 10 ^3/uL (0-0.2); Basophils % (auto) 0.6 % (0.0-2.0); Eosinophils # (auto) 0.3 10 ^3/uL (0-0.8); Eosinophils % (auto) 4.4 % (0.0-7.0); Hematocrit 30.6 % (41.0-53.0); Hemoglobin 10.2 g/dL (13.5-17.5); Lymphocytes # (auto) 1.3 10 ^3/uL (0.4-5.4); Lymphocytes % (auto) 19.6 % (10.0-50.0); Mean Corpuscular Hemoglobin 31.1 pg (28.0-32.0); Mean Corpuscular Hgb Conc. 33.5 g/dL (32.0-36.0); Monocytes # (auto) 0.6 10 ^3/uL (0-1.3); Monocytes % (auto) 9.6 % (0.0-12.0); Neutrophils # (auto) 4.4 10 ^3/uL (1.6-8.6); Neutrophils % (auto) 65.8 % (37.0-80.0); Nucleated Red Blood Cells % 0.1 %; Platelet Count (auto) 210 10^3/uL (140-450); Red Blood Cells 3.29 10^6/uL (4.5-5.90); Red Cell Distribution Width 16.2 % (11.8-14.3); White Blood Cell 6.7 10^3/uL (4.4-10.8)
[2024-08-01 07:13] LABS: Alanine Aminotransferase 12 U/L (7-40); Albumin 3.8 g/dL (3.2-4.8); Anion Gap 7 (5-15); Aspartate Aminotransferase 21 U/L (13-40); Carbon Dioxide 31 mmol/L (20-31); Glucose 83 mg/dL (74-106); LDL Cholesterol 40 mg/dL (< 100); Potassium 4.1 mmol/L (3.5-5.1); Total Protein 7.5 g/dL (5.7-8.2); Triglycerides 58 mg/dL (< 150)
[2024-08-01 07:14] LABS: Bilirubin, Total 0.4 mg/dL (0.2-1.0); Cholesterol 96 mg/dL (< 200)
[2024-08-01 07:21] LABS: Alkaline Phosphatase 175 U/L (46-116); Blood Urea Nitrogen 35 mg/dL (9-23); Calcium 10.9 mg/dL (8.7-10.4); Chloride 107 mmol/L (98-107); HDL Cholesterol 38 mg/dL (40-59); Sodium 145 mmol/L (136-145)
[2024-08-01] MEDS: SPIRONOLACTONE 25 MG TAB PO SCH (09:40)
[2024-08-01] MEDS: FUROSEMIDE 40 MG/4 ML VIAL IV SCH (09:40)
[2024-08-01] MEDS: LISINOPRIL 20 MG TAB PO SCH (09:45)
--- NOTE | 2024-08-01 11:58 | DVH ---
BILATERAL Lower Extremity Arterial Duplex Date: 08/01/2024 10:54 AM Clinical History: PAD Comparison: None Technique: Duplex Doppler evaluation including color Doppler and spectral/pulsed waveform analysis of the lower extremity arteries was performed. Finding: Velocities and waveforms within normal limits IMPRESSION: There is no evidence for peripheral vascular insufficiency in the right lower extremity. There is no evidence for peripheral vascular insufficiency in the left lower extremity. No significant focal stenosis is identified.
--- NOTE | 2024-08-01 12:07 | DVHSR ---
APPROVED REPORT EXAM: Two-dimensional and M-mode echocardiogram with Doppler and color Doppler. Blood Pressure: 122/74 mmHg INDICATION B/L lower ext swelling, H/O HF Surgery/Intervention Valve Replacement: Mechanical Type: Aortic RISK FACTORS Height: 70, Weight: 258 DIMENSIONS LVDd5.9 (3.8-5.7cm)LA (2D)6.0 (1.9-4.0cm)Aortic Root3.9 (2.0-3.7cm) LVDs4.4 (2.5-4.0cm)LA (MM) (1.9-4.0cm)Aortic Cusp Exc (1.5-2.0cm) EF (%) 50.0 (55-70%)Rt. Atrium7.2 (1.9-4.0cm)Asc. Aorta cm IVSd1.4 (0.7-1.1cm)RV (D) (1.8-2.4cm) PWd1.8 (0.7-1.1cm) Mitral Valve MitralMitral Stenosis E wave1.14m/sMV Mean GR.mmHg A wavem/sMV Peak GR.84mmHg E/A ratio0.02D MVAcm2 Aortic Valve Aortic ValveAortic Stenosis V10.70m/Brandi Mean GR.12mmHg V22.52m/Brandi Peak GR.25mmHg LVOT Diameter2.6 (1.8-2.4cm)Doppler AVA1.47cm2 Pulmonic Valve V20.71m/s Tricuspid Valve TR Velocity3.15m/s [id number] Conclusion lvef 50% restrictive LV filling pattern LV dilated mild RV enlarged severe biatrial enlargement s/p AVR, not well seen, trace AI, mean gradient across valve is 10 mmg which is likely normal severe tricuspid regurg noted moderate pulm htn
--- NOTE | 2024-08-01 16:13 | DVHPNRES ---
Progress Note Date Seen: Aug 01, 2024 Resident Creating Document: JEREMY NIEVES JIN Has the PT tested + for MRSA If YES, has PT been informed?: No Medical Necessity Reason Pt with a Central, PICC or Fol: No Subjective Review of Systems Patient is a 79-year-old male with a past medical history of congestive heart failure, ? Coronary artery disease, hypertension, prosthetic aortic valve, gout presented to the ED with a chief complaint of bilateral lower extremity swelling since the last 2 days. Patient denied any shortness of breath, chest pain, cough expectoration. Patient is on warfarin 7.5 mg on Thursday and 5 mg rest of the days for a prosthetic aortic valve which was placed in 1995 with a open heart surgery. Patient does not remember the when the last time he saw a building specialist. From the record his last echo in 2020 shows LVEF 30% with a global hypokinesis, moderate tricuspid insufficiency, RVSP of 47mmhg. Past medical history: congestive heart failure, ? Coronary artery disease, hypertension, prosthetic aortic valve, gout Past surgical history: Open heart surgery for valve replacement Social history: Patient lives with the family and denies smoking, alcohol, drug use Home medications: Carvedilol 12.5 mg b.i.d., Lasix 40 mg daily, spironolactone 25 mg daily, lisinopril 40 mg daily, warfarin 7.5 mg on Thursday and 5 mg rest of the days Patient seen and examined at the bedside. Patient is complaining bilateral lower limb swelling and discomfort. Objective vital signs Vital Sign Date Time Temp Pulse Resp B/P (MAP) Pulse Ox O2 Delivery O2 Flow Rate FiO2 08/01/24 13:00 97.7 70 17 128/75 (92) 96 97.7 08/01/24 08:00 Room Air* 0 21 Total Intake and Output 07/31/24 07/31/24 08/01/24 15:00 23:00 07:00 Intake Total 150 ml Output Total 2070 ml 100 ml Balance -2070 ml 50 ml medications Current Medications Medications Dose Ordered Sig/Mable Route Start Time Stop Time Status Last Admin Dose Admin Nitroglycerin 0.4 mg Q5MINP PRN SL 07/31/24 21:45 Morphine Sulfate 2 mg Q30M PRN IV 07/31/24 21:45 Carvedilol 6.25 mg Q12HR PO 07/31/24 22:00 08/01/24 09:40 6.25 MG Spironolactone 25 mg DAILY PO 08/01/24 10:00 08/01/24 09:40 25 MG Furosemide 40 mg DAILY IV 08/01/24 10:00 08/01/24 09:40 40 MG Lisinopril 20 mg DAILY PO 08/01/24 10:00 08/01/24 09:45 20 MG Pantoprazole Sodium 40 mg DAILY@0600 PO 08/01/24 06:00 08/01/24 05:09 40 MG Warfarin Sodium RX PROTOCOL PER PHARMACY PO 08/01/24 10:00 Examination General Appearance: Alert, Oriented X3, Cooperative, No acute distress HEENT: Atraumatic, PERRLA, EOMI, Mucous membrane moist/pink Respiratory: Bilateral lower zone crackles Cardiovascular: Regular rate, Normal S1, Normal S2, No murmurs, no chest wall tenderness Abdominal: Normal bowel sounds, Soft, No tenderness, No hepatospenomegaly, No masses Extremities: The limb grade 1 pedal edema Skin: No rashes, No breakdown, No significant lesion Neuro: Normal gait, Normal speech, Strength at 5/5 X4 ext, Normal tone, Sensation intact, Cranial nerves 3-12 NL, Reflexes 2+ Psych/Mental Status: Mental status NL, Mood NL laboratory and microbiology Laboratory Tests 08/01/24 06:10 Test 08/01/24 06:10 Range/Units Serum Glucose 83 74-106 mg/dL Microbiology Date/Time Source Procedure Growth Status 07/31/24 13:36 Blood Blood Culture - Preliminary NO GROWTH AFTER 24 HOURS OF INCUBATION. Resulted Labs and/or images reviewed: Labs reviewed by me, Image(s) reviewed by me Problem List/Assessment/Plan Problem List/Assessment/Plan Acute on chronic systolic heart failure Systolic heart failure, NYHA class 2 Bilateral lower limb edema/volume overload, likely due to heart failure History ICD placement Status post AVR Severe tricuspid regurgitation YURY, on CKD grade 3B Ruled out DVT Obesity * Echo shows, LVEF 50% with restricted LV filling, LV dilated mildly, RV enlarged with severe bilateral atrial enlargement, severe TR, moderate pulmonary hypertension with RSVP 58 * Doppler ultrasound of lower limb and Doppler shows no DVT or significant PAD * Serial trop I and BNP is within normal limit * Chest x-ray shows cardiomegaly Plan/recommendation IV diuretic Lasix 40 mg daily Continue carvedilol 6.25 mg b.i.d., lisinopril 20 mg daily and spironolactone 25 mg daily Warfarin pharmacy Started [facility] DIET: Cardiac diet DVT PROPHYLAXIS: On warfarin CODE STATUS: Goal of care discussed for more than 18 minutes, full code DISPOSITION: Med/surge Patient's status and plan discussed with the patient. Case discussed with Dr. Brand. Plan discussed with: Patient, Other (RN) My Orders My Orders Orders - JEREMY NIEVES Procedure Category Date Status Time Bilat Low Ext Art US 08/01/24 Resulted Duplex 09:34 Warfarin Per Rx [facility] 08/01/24 In Process Protocol (Coumadin 10:00 Date of Service: Aug 01, 2024 Billing Provider: OSMEL BRAND MD Common Visit Codes: [id number] INP/OBS CARE(HIGH) JEREMY NIEVES Aug 01, 2024 16:13 OSMEL BRAND MD Aug 02, 2024 15:29
[2024-08-01] MEDS ORDERED: WARFARIN SODIUM 2.5 MG TAB PO ONE (17:00)
[2024-08-02] VITALS (7 sets, daily range): BP systolic 110–133; BP diastolic 62–95; PULSE 68–70; RESP 16–17; TEMP 97.5–98; O2SAT 95–98
[2024-08-02 06:57] LABS: Basophils # (auto) 0.1 10 ^3/uL (0-0.2); Basophils % (auto) 0.7 % (0.0-2.0); Eosinophils # (auto) 0.2 10 ^3/uL (0-0.8); Eosinophils % (auto) 3.2 % (0.0-7.0); Hemoglobin 10.6 g/dL (13.5-17.5); Lymphocytes # (auto) 1.4 10 ^3/uL (0.4-5.4); Lymphocytes % (auto) 20.6 % (10.0-50.0); Mean Corpuscular Hemoglobin 30.9 pg (28.0-32.0); Mean Corpuscular Hgb Conc. 33.1 g/dL (32.0-36.0); Mean Corpuscular Volume 93.5 fL (80.0-100.0); Monocytes # (auto) 0.6 10 ^3/uL (0-1.3); Monocytes % (auto) 8.8 % (0.0-12.0); Neutrophils # (auto) 4.5 10 ^3/uL (1.6-8.6); Neutrophils % (auto) 66.7 % (37.0-80.0); Nucleated Red Blood Cells % 0.1 %; Platelet Count (auto) 225 10^3/uL (140-450); Red Blood Cells 3.42 10^6/uL (4.5-5.90); Red Cell Distribution Width 16.2 % (11.8-14.3); White Blood Cell 6.8 10^3/uL (4.4-10.8)
[2024-08-02 06:59] LABS: Albumin 3.8 g/dL (3.2-4.8); Anion Gap 8 (5-15); BUN/Creatinine Ratio 18.2 (10.0-20.0); Bilirubin, Total 0.6 mg/dL (0.2-1.0); Carbon Dioxide 29 mmol/L (20-31); Chloride 103 mmol/L (98-107); Glucose 99 mg/dL (74-106); Potassium 3.8 mmol/L (3.5-5.1); Sodium 140 mmol/L (136-145); Total Protein 7.6 g/dL (5.7-8.2)
[2024-08-02 07:03] LABS: Alanine Aminotransferase < 9 U/L (7-40); Alkaline Phosphatase 171 U/L (46-116); Blood Urea Nitrogen 30 mg/dL (9-23); Calcium 10.5 mg/dL (8.7-10.4)
[2024-08-02 07:27] LABS: Aspartate Aminotransferase 19 U/L (13-40)
[2024-08-02] MEDS: EMPAGLIFLOZIN 10 MG TAB PO SCH (09:50)
[2024-08-02] MEDS ORDERED: EMPA1TAB PO (14:39)
--- NOTE | 2024-08-02 14:44 | DVHDSRES ---
Discharge Summary Date of Admission Resident Creating Document: JEREMY NIEVES RESDIENT Jul 31, 2024 at 21:31 Date of Discharge: Aug 02, 2024 Labs/Diagnostic Data: Laboratory Results Test 08/02/24 14:10 08/02/24 06:23 08/01/24 06:10 07/31/24 22:22 White Blood Count 6.8 10^3/uL (4.4-10.8) Red Blood Count 3.42 10^6/uL (4.5-5.90) Hemoglobin 10.6 g/dL (13.5-17.5) Hematocrit 32.0 % (41.0-53.0) Mean Corpuscular Volume 93.5 fL (80.0-100.0) Mean Corpuscular Hemoglobin 30.9 pg (28.0-32.0) Mean Corpuscular Hemoglobin Concent 33.1 g/dL (32.0-36.0) Red Cell Distribution Width 16.2 % (11.8-14.3) Platelet Count 225 10^3/uL (140-450) Mean Platelet Volume 7.6 fL (6.9-10.8) Neutrophils (%) (Auto) 66.7 % (37.0-80.0) Lymphocytes (%) (Auto) 20.6 % (10.0-50.0) Monocytes (%) (Auto) 8.8 % (0.0-12.0) Eosinophils (%) (Auto) 3.2 % (0.0-7.0) Basophils (%) (Auto) 0.7 % (0.0-2.0) Neutrophils # (Auto) 4.5 10 ^3/uL (1.6-8.6) Lymphocytes # (Auto) 1.4 10 ^3/uL (0.4-5.4) Monocytes # (Auto) 0.6 10 ^3/uL (0-1.3) Eosinophils # (Auto) 0.2 10 ^3/uL (0-0.8) Basophils # (Auto) 0.1 10 ^3/uL (0-0.2) Nucleated Red Blood Cells 0.1 % Sodium Level 140 mmol/L (136-145) Potassium Level 3.8 mmol/L (3.5-5.1) Chloride Level 103 mmol/L (98-107) Carbon Dioxide Level 29 mmol/L (20-31) Anion Gap 8 (5-15) Blood Urea Nitrogen 30 mg/dL (9-23) Creatinine 1.65 mg/dL (0.700-1.30) Glomerular Filtration Rate Calc 42 mL/min (>90) BUN/Creatinine Ratio 18.2 (10.0-20.0) Serum Glucose 99 mg/dL (74-106) Calcium Level 10.5 mg/dL (8.7-10.4) Total Bilirubin 0.6 mg/dL (0.2-1.0) Aspartate Amino Transferase (AST) 19 U/L (13-40) Alanine Aminotransferase (ALT) < 9 U/L (7-40) Alkaline Phosphatase 171 U/L (46-116) Total Protein 7.6 g/dL (5.7-8.2) Albumin 3.8 g/dL (3.2-4.8) Reticulocyte Count (auto) 0.81 % (0.5-1.5) Triglycerides Level 58 mg/dL (< 150) Cholesterol Level 96 mg/dL (< 200) LDL Cholesterol 40 mg/dL (< 100) HDL Cholesterol 38 mg/dL (40-59) Influenza Type A Antigen Negative (Negative) Influenza Type B Antigen Negative (Negative) SARS-CoV-2 Antigen (Rapid) Negative (NEGATIVE) Test 07/31/24 16:41 07/31/24 14:22 07/31/24 13:36 Troponin I High Sensitivity 38 ng/L (</=54) Urine Color Light-yellow (Yellow) Urine Clarity Clear (Clear) Urine pH 5.5 (5.0-9.0) Urine Specific [place] 1.010 (1.001-1.035) Urine Protein Negative (Negative) Urine Ketones Negative (Negative) Urine Blood Negative /uL (Negative) Urine Nitrite Negative (Negative) Urine Bilirubin Negative (Negative) Urine Urobilinogen Normal mg/dL (Negative) Urine Leukocyte Esterase Negative /uL (Negative) Urine RBC 1 /hpf (0 - 3) Urine Microscopic WBC < 1 /HPF (0-3) Urine Squamous Epithelial Cells Few /hpf (<5) Urine Bacteria None seen /hpf (None Seen) Urine Hyaline Casts Few /lpf (0 - 2) Urine Creatinine 51.56 mg/dL (30.0-125.0) Urine Protein/Creatinine Ratio 0.12 Urine Sodium 109 mmol/L (40-220) Urine Glucose Normal mg/dL (Normal) Urine Total Protein < 6.0 mg/dL (1-14) Lactic Acid Level 1.0 mmol/L (0.4-2.0) B-Type Natriuretic Peptide 190.66 pg/mL (0-100) Other Laboratory Tests 08/02/24 06:23 Brief Hx & Hospital Course: Patient is a 79-year-old male with a past medical history of congestive heart failure, ? Coronary artery disease, hypertension, prosthetic aortic valve, gout presented to the ED with a chief complaint of bilateral lower extremity swelling since the last 2 days. Patient denied any shortness of breath, chest pain, cough expectoration. Patient is on warfarin 7.5 mg on Thursday and 5 mg rest of the days for a prosthetic aortic valve which was placed in 1995 with a open heart surgery. Patient does not remember the when the last time he saw a cytopathologist. From the record his last echo in 2020 shows LVEF 30% with a global hypokinesis, moderate tricuspid insufficiency, RVSP of 47mmhg. Past medical history: congestive heart failure, ? Coronary artery disease, hypertension, prosthetic aortic valve, gout Past surgical history: Open heart surgery for valve replacement Social history: Patient lives with the family and denies smoking, alcohol, drug use Home medications: Carvedilol 12.5 mg b.i.d., Lasix 40 mg daily, spironolactone 25 mg daily, lisinopril 40 mg daily, warfarin 7.5 mg on Thursday and 5 mg rest of the days Hospital course: The patient was admitted at the line of acute on chronic systolic heart failure. Patient was started on Lasix 40 mg IV daily. Lower extremity Doppler ultrasound did not show DVT, and Dopplers of artery did not show significant artery disease. Echocardiogram showed LVEF 50% with restrictive LV filling pattern, bilateral atrial enlarged, status AVR with severe TR. During hospital admission home medicine including carvedilol, spironolactone and lisinopril with continued and the patient was also started on Jardiance 10 mg daily. Troponin I will level was normal and BNP was mildly raised. On 08/02/2024, the patient was feeling better since admission. Discharge plan discussed with the patient and the patient was discharged home. Discharge plan: Follow up with the PCP within 1 week of the discharge. Follow up with the discharge Clinic within 1 week of the discharge Follow up with the Cardiology on outpatient basis. Jardiance 10 mg daily Continue home meds Operations or Procedures [address] [address] Ph: [phone] DIAGNOSTIC IMAGING Diagnostic Imaging Report : [id number] Signed PATIENT: KARLI PEACOCK ACCT: [id number] UNIT: [id number] : 1945 LOC: [facility] ROOM / BED: [facility] / B AGE / SEX: 79 / M ADM STATUS: ADM IN SERVICE 30 ORDERING PHYSICIAN: LIDA FERNANDEZ RESIDENT PROCEDURE(s): ECIDC - ECHO 2D MODE CARDIAC DOP REASON: b/L lower ext swellibg, H/o HFrEF ORDER NUMBER(s): [id number], ACCESSION NUMBER(s): [id number] APPROVED REPORT EXAM: Two-dimensional and M-mode echocardiogram with Doppler and color Doppler. Blood Pressure: 122/74 mmHg INDICATION B/L lower ext swelling, H/O HF Surgery/Intervention Valve Replacement: Mechanical Type: Aortic RISK FACTORS Height: 70, Weight: 258 DIMENSIONS LVDd 5.9 (3.8-5.7cm) LA (2D) 6.0 (1.9-4.0cm) Aortic Root 3.9 (2.0- 3.7cm) LVDs 4.4 (2.5-4.0cm) LA (MM) (1.9-4.0cm) Aortic Cusp Exc (1.5- 2.0cm) EF (%) 50.0 (55-70%) Rt. Atrium 7.2 (1.9-4.0cm) Asc. Aorta cm IVSd 1.4 (0.7-1.1cm) RV (D) (1.8-2.4cm) PWd 1.8 (0.7-1.1cm) Mitral Valve Mitral Mitral Stenosis E wave 1.14m/s MV Mean GR. mmHg A wave m/s MV Peak GR. 84mmHg E/A ratio 0.0 2D MVA cm2 Aortic Valve Aortic Valve Aortic Stenosis V1 0.70m/s AO Mean GR. 12mmHg V2 2.52m/s AO Peak GR. 25mmHg LVOT Diameter 2.6 (1.8-2.4cm) Doppler MORGAN 1.47cm2 Pulmonic Valve V2 0.71m/s Tricuspid Valve TR Velocity 3.15m/s RVSP 58mmHg Conclusion lvef 50% restrictive LV filling pattern LV dilated mild RV enlarged severe biatrial enlargement s/p AVR, not well seen, trace AI, mean gradient across valve is 10 mmg which is likely normal severe tricuspid regurg noted moderate pulm htn SIGNED BY: YELENA CHACON MD SIGNED DATE/TIME: 08/01/24 1207 CC: Condition at Discharge: Good Final Diagnosis/Problems List Acute on chronic systolic heart failure Volume overload, likely due to heart failure Systolic heart failure, improved EF, NYHA class 2 YURY on CKD grade 3B, likely VMN Ruled out DVT Ruled out respiratory failure Acquired hypercoagulopathy Ruled out PID Obesity Severe TVR Status post AVR History of ICD placement Discharge Disposition: Home Discharge Instruct/Medications Diet: Cardiac 2g Na,low cholest Activity: No Restrictions, As Tolerated Follow Up/Referral: Follow up with the PCP within 1 week of the discharge. Follow up with the Cardiology on outpatient basis. Follow up with the discharge Clinic next week (on 08/08/2074) Medications: Jardiance 10 mg daily Continue home meds Discharge Statement: "Patient was advised to return to the ER or call 911 if any headaches, dizziness, shortness of breath, chest pain, abdominal pain, bleeding, fevers, or worsening of medical condition. Patient was counseled about treatment plan, medications, possible side effects, patientverbalized understanding. All questions were answered to the best of my ability. This discharge took greater then 30 minutes in planning, reviewing documentation, counseling the patient, and discussing with other team members." ASSESSMENT ASSESSMENT Assessment Date of Service: Aug 01, 2024 Billing Provider: OSMEL BRAND MD Common Visit Codes: 23525-EOG/OBS DISCH DAY >30min JEREMY NIEVES RESDIENT Aug 02, 2024 14:44 OSMEL BRAND MD Aug 02, 2024 15:40
[2024-08-02 14:52] LABS: INR 2.33 (0.9-1.15); Partial Thromboplastin Time 42.4 SEC (24.5-34.5); Prothrombin Time 22.7 sec (9.3-11.8)
[2024-08-02] MEDS ORDERED: WARFARIN SODIUM 5 MG TAB PO SCH (17:00)
[2024-08-02] MEDS: WARFARIN SODIUM 5 MG TAB PO ONE (17:11)
== END 2024-08-02 17:05 | disposition home or self-care (01) | DRG 291 ==
LOC: ER 12:34 → OVERFLOW 21:31 → TELE-CENTR 08-01 01:00
PROVIDERS: ADMIT Student in an Organized Health Care Education/Training Program; ATTEND Emergency Medicine
DX: I13.0 Hypertensive heart and chronic kidney disease with heart failure and stage 1 through stage 4 chronic kidney disease, or unspecified chronic kidney disease (principal); I50.23 Acute on chronic systolic (congestive) heart failure; N17.0 Acute kidney failure with tubular necrosis; D68.69 Other thrombophilia; L03.116 Cellulitis of left lower limb; N18.32 Chronic kidney disease, stage 3b; D64.9 Anemia, unspecified; I25.10 Atherosclerotic heart disease of native coronary artery without angina pectoris; E66.9 Obesity, unspecified; Z20.822 Contact with and (suspected) exposure to COVID-19; M10.9 Gout, unspecified; Z79.899 Other long term (current) drug therapy; Z79.01 Long term (current) use of anticoagulants; Z68.35 Body mass index [BMI] 35.0-35.9, adult; Z95.2 Presence of prosthetic heart valve
CPT/HCPCS: 36415; 71045; 76775; 80053; 80061; 81001; 82570; 83605; 83880; 84156; 84300; 84484; 85025; 85045; 85610; 85730; 87040; 87426; 87804; 93306; 93925; 93970; 96365; 96375; G0378; J2543

== ENCOUNTER 2024-08-16 06:51 | Outpatient (CLI) | payer OTHER ==
[~2024-08-16 06:51] MED LIST changes: -CLON0.1T PO; -COLC1CAP PO; +EMPA1TAB PO; -FURO1TAB31 PO; -PRED20TA2 PO; -SIMV-270; -WARF5TAB
[2024-08-16 07:12] LABS: Urine Bacteria None Seen /hpf (None Seen)
[2024-08-16 07:31] LABS: Urine Blood Negative /uL (Negative); Urine Clarity Clear (Clear); Urine Color Light-Yellow (Yellow); Urine Hyaline Cast FEW /lpf (0 - 2); Urine Protein, UAD Negative (Negative); Urine Specific Gravity 1.012 (1.001-1.035); Urine Squamous Epithelial Cell FEW /hpf (<5); Urine Urobilinogen Normal (Negative); Urine WBC < 1 /HPF (0-3); Urine pH 5.5 (5.0-9.0)
[2024-08-16 07:44] LABS: Basophils # (auto) 0 10 ^3/uL (0-0.2); Basophils % (auto) 0.6 % (0.0-2.0); Eosinophils # (auto) 0.3 10 ^3/uL (0-0.8); Eosinophils % (auto) 3.3 % (0.0-7.0); Hematocrit 35.5 % (41.0-53.0); Hemoglobin 11.8 g/dL (13.5-17.5); Lymphocytes # (auto) 1.9 10 ^3/uL (0.4-5.4); Lymphocytes % (auto) 23.3 % (10.0-50.0); Mean Corpuscular Hemoglobin 31.1 pg (28.0-32.0); Mean Corpuscular Hgb Conc. 33.2 g/dL (32.0-36.0); Mean Corpuscular Volume 93.8 fL (80.0-100.0); Monocytes # (auto) 0.6 10 ^3/uL (0-1.3); Monocytes % (auto) 7.8 % (0.0-12.0); Neutrophils # (auto) 5.2 10 ^3/uL (1.6-8.6); Nucleated Red Blood Cells % 0.1 %; Platelet Count (auto) 249 10^3/uL (140-450); Red Blood Cells 3.79 10^6/uL (4.5-5.90); Red Cell Distribution Width 16.3 % (11.8-14.3)
[2024-08-16 07:45] LABS: Potassium 4.4 mmol/L (3.5-5.1)
[2024-08-16 07:46] LABS: Calcium 11.6 mg/dL (8.7-10.4)
[2024-08-16 07:49] LABS: Creatinine, Urine 96.32 mg/dL (30.0-125.0); Urine Protein/Creatinine Ratio 0.15
[2024-08-16 07:51] LABS: BUN/Creatinine Ratio 21.6 (10.0-20.0)
[2024-08-16 07:52] LABS: Albumin 4.3 g/dL (3.2-4.8); Micro Albumin < 3.0 mg/L (<30.0)
[2024-08-16 08:15] LABS: Uric Acid 4.7 mg/dL (3.7-9.2)
== END 2024-08-16 17:00 | disposition home or self-care (01) ==
LOC: LAB 06:51
PROVIDERS: ATTEND Internal Medicine
DX: E11.22 Type 2 diabetes mellitus with diabetic chronic kidney disease (principal); E11.21 Type 2 diabetes mellitus with diabetic nephropathy; N18.30 Chronic kidney disease, stage 3 unspecified; E55.9 Vitamin D deficiency, unspecified; E21.3 Hyperparathyroidism, unspecified; N39.0 Urinary tract infection, site not specified; D63.1 Anemia in chronic kidney disease; R80.9 Proteinuria, unspecified; M10.9 Gout, unspecified
CPT/HCPCS: 36415; 80069; 81001; 82043; 82570; 83970; 84156; 84550; 85025

== ENCOUNTER 2024-09-26 07:51 | Outpatient (CLI) | payer OTHER ==
[2024-09-26 08:16] LABS: Hematocrit 32.7 % (41.0-53.0); Hemoglobin 10.8 g/dL (13.5-17.5); Mean Corpuscular Hemoglobin 31.0 pg (28.0-32.0); Mean Corpuscular Volume 94.1 fL (80.0-100.0); Nucleated Red Blood Cells % 0.1 %
[2024-09-26 08:55] LABS: Alanine Aminotransferase 19 U/L (7-40); Albumin 4.0 g/dL (3.2-4.8); Anion Gap 8 (5-15); BUN/Creatinine Ratio 25.5 (10.0-20.0); Bilirubin, Total 0.5 mg/dL (0.2-1.0); Carbon Dioxide 24 mmol/L (20-31); Cholesterol 115 mg/dL (< 200); Glucose 95 mg/dL (74-106); HDL Cholesterol 43 mg/dL (40-59); Potassium 5.0 mmol/L (3.5-5.1); Sodium 140 mmol/L (136-145); Total Protein 7.5 g/dL (5.7-8.2); Triglycerides 77 mg/dL (< 150)
[2024-09-26 08:56] LABS: Alkaline Phosphatase 183 U/L (46-116); Blood Urea Nitrogen 55 mg/dL (9-23); Calcium 10.4 mg/dL (8.7-10.4); Chloride 108 mmol/L (98-107)
[2024-09-26 11:17] LABS: Urine Protein, UAD Negative (Negative)
[2024-09-26 11:23] LABS: Prostate Specific Antigen 1.58 ng/mL (0.0-4.0)
[2024-09-26 11:26] LABS: Free T4 (Free Thyroxine) 0.92 ng/dL (0.89-1.76)
== END 2024-09-26 17:00 | disposition home or self-care (01) ==
LOC: LAB 07:51
PROVIDERS: ATTEND Internal Medicine
DX: I12.9 Hypertensive chronic kidney disease with stage 1 through stage 4 chronic kidney disease, or unspecified chronic kidney disease (principal); N18.32 Chronic kidney disease, stage 3b; E78.5 Hyperlipidemia, unspecified; N17.9 Acute kidney failure, unspecified; R73.03 Prediabetes; D64.9 Anemia, unspecified; R80.9 Proteinuria, unspecified; D68.69 Other thrombophilia; Z12.5 Encounter for screening for malignant neoplasm of prostate; Z12.11 Encounter for screening for malignant neoplasm of colon; Z13.1 Encounter for screening for diabetes mellitus; Z00.00 Encounter for general adult medical examination without abnormal findings; Z79.899 Other long term (current) drug therapy
CPT/HCPCS: 36415; 80053; 80061; 81001; 82274; 83036; 84153; 84439; 84443; 85025

== ENCOUNTER 2024-11-23 08:13 | Outpatient (CLI) | payer OTHER ==
[2024-11-23 09:33] LABS: Alanine Aminotransferase 13 U/L (7-40); Albumin 4.3 g/dL (3.2-4.8); Anion Gap 11 (5-15); BUN/Creatinine Ratio 23.0 (10.0-20.0); Bilirubin, Total 0.6 mg/dL (0.2-1.0); Carbon Dioxide 25 mmol/L (20-31); Glucose 97 mg/dL (74-106); Potassium 4.4 mmol/L (3.5-5.1); Sodium 144 mmol/L (136-145)
[2024-11-23 09:40] LABS: Alkaline Phosphatase 248 U/L (46-116); Blood Urea Nitrogen 46 mg/dL (9-23); Calcium 10.4 mg/dL (8.7-10.4); Chloride 108 mmol/L (98-107); Total Protein 8.5 g/dL (5.7-8.2)
[2024-11-23 10:40] LABS: Uric Acid 3.8 mg/dL (3.7-9.2)
[2024-11-24 13:35] LABS: Microalb/Creat Ratio, Urine 3.0
== END 2024-11-23 17:00 | disposition home or self-care (01) ==
LOC: LAB 08:13
PROVIDERS: ATTEND Internal Medicine Nephrology
DX: E11.22 Type 2 diabetes mellitus with diabetic chronic kidney disease (principal); N18.30 Chronic kidney disease, stage 3 unspecified; E11.21 Type 2 diabetes mellitus with diabetic nephropathy; E21.3 Hyperparathyroidism, unspecified; E55.9 Vitamin D deficiency, unspecified; N39.0 Urinary tract infection, site not specified; D63.1 Anemia in chronic kidney disease; M10.9 Gout, unspecified; R80.9 Proteinuria, unspecified
CPT/HCPCS: 36415; 80053; 82043; 82306; 82570; 83970; 84100; 84550

== ENCOUNTER 2025-02-21 08:14 | Outpatient (CLI) | payer OTHER ==
[2025-02-21 09:11] LABS: Protein, Urine 7.0 mg/dL (1-14)
[2025-02-21 09:15] LABS: Alanine Aminotransferase 22 U/L (7-40); Albumin 4.0 g/dL (3.2-4.8); Anion Gap 7 (5-15); BUN/Creatinine Ratio 19.7 (10.0-20.0); Carbon Dioxide 27 mmol/L (20-31); Glucose 104 mg/dL (74-106); Magnesium 2.2 mg/dL (1.6-2.6); Potassium 4.9 mmol/L (3.5-5.1); Sodium 142 mmol/L (136-145); Total Protein 7.9 g/dL (5.7-8.2)
[2025-02-21 09:16] LABS: Alkaline Phosphatase 268 U/L (46-116); Bilirubin, Total 0.5 mg/dL (0.2-1.0); Blood Urea Nitrogen 37 mg/dL (9-23); Calcium 10.9 mg/dL (8.7-10.4); Chloride 108 mmol/L (98-107)
== END 2025-02-21 17:00 | disposition home or self-care (01) ==
LOC: LAB 08:14
PROVIDERS: ATTEND Internal Medicine Nephrology
DX: E11.22 Type 2 diabetes mellitus with diabetic chronic kidney disease (principal); N18.30 Chronic kidney disease, stage 3 unspecified; E11.21 Type 2 diabetes mellitus with diabetic nephropathy; N39.0 Urinary tract infection, site not specified; R80.9 Proteinuria, unspecified; E21.3 Hyperparathyroidism, unspecified; M10.9 Gout, unspecified; E55.9 Vitamin D deficiency, unspecified; D63.1 Anemia in chronic kidney disease
CPT/HCPCS: 36415; 80053; 82043; 82306; 82570; 83735; 83970; 84100; 84156